=== PATIENT | male | born 1960 | race Caucasian/White ===

== ENCOUNTER 2019-10-11 10:02 | Outpatient (CLI) | payer MEDICARE, MEDICAID, SELFPAY ==
--- NOTE | ~2019-10-11 | CT_ITS ---
EXAMINATION: CT lung screening EXAM DATE: 10/11/2019 10:32 INDICATION: Personal history of nicotine dependence. TECHNIQUE: Spiral low dose CT of the chest without contrast. Axial, coronal and sagittal images were reviewed. The dose-length product (DLP) for this examination was 72.33 mGy-cm. The exposure was ta ilored according to patient size (auto mA exposure control), and iterative reconstruction (ASIR) was used as additional dose reduction technique. There is no prior study for comparison. FINDINGS: The lungs are clear. Tracheobronchial tree is patent. There is no mediastinal, hilar o r axillary lymphadenopathy. There are no pleural or pericardial effusions. There is no pneumothor ax. Heart normal in size. There is mild coronary arterial calcification, arterial sclerosis. Uppe r abdomen is unremarkable. Patient has diffuse idiopathic skeletal hyperostosis (DISH). IMPRESSION: Lung-RADS category 1, negative (<1%chance of malignancy); recommend continued LDCT screen ing in 1 year. > Reviewed, dictated and finalized at location A. IC RELATIONS SENIOR ASSOCIATE IMPRESSION: Lung-RADS category 1, negative (<1%chance of malignancy); recommend continued LDCT screening in 1 year. >
== END 2019-10-11 10:03 | disposition home or self-care (01) ==
LOC: ANHIMG 10:06
PROVIDERS: PCP Emergency Medicine; Visit Provider Emergency Medicine
DX: Z87.891 Personal history of nicotine dependence (principal)
CPT/HCPCS: G0297

== ENCOUNTER 2019-11-06 07:50 | Outpatient (CLI) | payer MEDICARE, MEDICAID, SELFPAY ==
--- NOTE | ~2019-11-06 | CT_ITS ---
EXAMINATION: CT abdomen pelvis wo/w con DATE: 11/06/2019 08:36 INDICATION: Recurrent UTI. Crohn's disease. TECHNIQUE: Computed tomography (CT) of the abdomen and pelvis was performed without and with 130 cc O mnipaque 350 intravenous contrast. The dose-length product was 627.30 mGy-cm. Automated exposure cont rol and iterative reconstruction technique were employed. COMPARISON: CT dated 01/07/2019 FINDINGS: Lung bases are unremarkable. No significant pleural or pericardial effusion. There is gynec omastia. Heart size normal. Mild atherosclerosis. No evidence for aneurysm. There is abnormal thickening of the sigmoid colon with surrounding fatty infiltration, highly suspici ous for colon adenocarcinoma. Recommend GI consultation. There is a small mesenteric nodule anteriorl y, image 145 measuring 8 mm. There are small obturator lymph nodes there are areas of small bowel wal l thickening and enhancement, compatible with patient's known Crohn's disease. No renal stones. Bladder wall is mildly thickened, although not well distended. No free air or free f luid. Multiple small mesenteric lymph nodes. There are bridging syndesmophytes of the lumbar spine wi th ankylosis of the sacroiliac joints, compatible with Crohn's disease. Moderate osteoarthritis of th e hips. IMPRESSION: 1. Abnormal thickening of the sigmoid colon with fatty infiltration, suspicious for adenocarcinoma of the colon. Recommend GI consultation. 2: Multiple focal skip areas of small bowel wall thickening with enhancement, compatible with known C rohn's disease. 3: Mild bladder wall thickening which may be due to underdistention or cystitis. Correlate with urin alysis. 4: Mild mesenteric and left obturator lymphadenopathy which may be reactive although metastatic dise ase not excluded. Dr. Worthy discussed with Dr. Dariusz Titus MD at 11/06/2019 08:59 ADHESIVE BANDAGE MAKING OPERATOR. Reviewed, dictated and finalized at location B. SIVE BANDAGE MAKING OPERATOR IMPRESSION: 1. Abnormal thickening of the sigmoid colon with fatty infiltration, suspicious for adenocarcinoma of the colon. Recommend GI consultation. 2: Multiple focal skip areas of small bowel wall thickening with enhancement, c ompatible with known Crohn's disease. 3: Mild bladder wall thickening which may be due to underdistention or cystiti s. Correlate with urinalysis. 4: Mild mesenteric and left obturator lymphadenopathy which may be reactive al though metastatic disease not excluded. Dr. Worthy discussed with Dr. Dariusz Titus MD at 11/06/2019 08:59 ADHESIVE BANDAGE MAKING OPERATOR.
[2019-11-06 08:19] LABS: Estimated Glomerular Filt Rate > 60
== END 2019-11-06 07:51 | disposition home or self-care (01) ==
PROVIDERS: PCP Emergency Medicine; Visit Provider Emergency Medicine
DX: N39.0 Urinary tract infection, site not specified (principal); R93.3 Abnormal findings on diagnostic imaging of other parts of digestive tract; N32.9 Bladder disorder, unspecified; R59.0 Localized enlarged lymph nodes
CPT/HCPCS: 36415; 74178; Q9967

== ENCOUNTER 2019-12-10 05:45 | Day surgery (SDC) | payer MEDICARE, MEDICAID, SELFPAY ==
[2019-12-06 10:12] VITALS: BMI 22.4
[2019-12-10] MEDS: LACTATED RINGERS 1,000 ML 150 ML IV CONT (07:00)
[2019-12-10 07:01] VITALS: BMI 21.2
[2019-12-10 07:02] VITALS: BP 109/69; PULSE 85; RESP 18; TEMP 36.4; O2SAT 100
--- NOTE | 2019-12-10 07:09 | WPDANESEPPF ---
Anes - Initial Pre Proc Eval Procedure: Operation Date: 12/10/19 08:00 Proposed Procedures p Colonoscopy - Jean Chavez MD Date/Time: 12/10/19 07:09 Surgeon: Jean Chavez MD Pre Op Diagnosis: Chrohn's disease, abn CT scan Patient Data Age: 59 Gender: M Height: 6 ft Weight: 71.2 kg Last Vital Signs Temp 97.6 F 12/10/19 07:02 Pulse 85 12/10/19 07:02 Resp 18 12/10/19 07:02 BP 109/69 12/10/19 07:02 Pulse Ox 100 12/10/19 07:02 Allergies Allergy/AdvReac Type Severity Reaction Status Date / Time No Known Allergies Allergy Unknown Verified 12/10/19 06:30 Home Medications Medication Instructions Recorded Confirmed Type atorvastatin 10 mg tablet 10 mg PO DAILY #30 tablet 12/03/19 12/06/19 Rx aspirin 81 mg PO DAILY 12/06/19 12/06/19 History azathioprine 100 mg PO BID 12/06/19 12/06/19 History cyclobenzaprine 10 mg PO DAILY 12/06/19 12/06/19 History famotidine 20 mg PO DAILY 12/06/19 12/06/19 History hydrocodone-acetaminophen 1 tablet PO TID PRN 12/06/19 12/06/19 History losartan 25 mg PO DAILY 12/06/19 12/06/19 History pantoprazole 40 mg PO DAILY 12/06/19 12/06/19 History ropinirole 1 mg PO HS 12/06/19 12/06/19 History Patient hx anesthesia problems: none Family hx anesthesia problems: none [facility] Past Medical History Medical History (Updated 11/19/19 @ 10:34 by Hien Kern) CAD (coronary artery disease) COPD (chronic obstructive pulmonary disease) Dyslipidemia Family History Family History (Updated 12/15/18 @ 10:08 by DOCTOR UNKNOWN) Mother Patient's mother is in good health Family history of coronary artery disease Hypertension Sibling Patient's brother is in good health Father Family history of coronary artery disease Diabetes mellitus Hypertension Other Family history of cardiovascular disease Social History Social History Smoking status: Former smoker Smoking end date: 09/05/10 Alcohol intake: current Anes - Eval Final PreProcedure Day of Procedure 04/06/20 07:09 Patient weight: normal Heart: regular rate and rhythm Lungs: clear to auscultation Airway: Mallampati scale class II Neurological: alert and oriented Last oral intake: >/= 8 hours ASA classification: III Emergent: no Anesthetic plan: proceed Anesthesia type and monitoring: general GIVS and standard monitoring Informed Consent: The patient's anesthetic plan and its attendant risks and benefits were discussed with the patient/family/POA. Questions were solicited and answers provided to the satisfaction of the patient/family/POA.
--- NOTE | 2019-12-10 08:01 | WPDGICN ---
Assessment and Plan Additional Plan This is a 59-year-old white male patient with ulcerative colitis presents today for colonoscopy. Patient initially seen 1 year ago after umbilical hernia repair. He has a past history of Crohn's disease previously followed by Dr. Ernesto George in [place]. Most recent colonoscopy was 2 years ago. At that time was described as being unremarkable. A CT scan of the abdomen performed after his hernia repair revealed a fistulous disease of the small bowel. He has been treated with medications and follow conservatively over the last year. He continues to have vague abdominal pain and cramping. Bowel movements are described as regular. He has no fevers. No bleeding. He feels better if he is moving in active during the day worse in the evening. He recently has been treated for urinary tract infection he denies any pneumaturia. Repeat CT scan of the abdomen performed 11/06/2019 we revealed abnormal appearance to the left colon suggesting possible Crohn's disease. A tumor cannot be excluded in this area. Past medical history is significant for ankylosing spondylitis diagnosed 20 years ago. He has a history of ventral hernia repair 1 year ago as described. Most recent colonoscopy 1 and half years ago in [place] was described as normal. He may have had a small polyp. Medications current we includes Imuran 100 mg p.o. daily. He has been intolerant to mesalamine. He states the Pentasa makes his skin crawl family history is noncontributory. Physical exam reveals him to be alert. Vital signs stable. HEENT exam unremarkable. Lungs are clear to auscultation and percussion. Heart is without murmur or extra sounds. Abdominal exam abdomen is scaphoid. Bowel sounds are present abdomen is soft with modest discomfort in the low abdomen. No localized tenderness appreciated. Digital external rectal exam is normal. Impression 1. Abnormal CT scan. Question of tumor in the left colon. Versus inflammatory bowel disease. 2. History of Crohn's disease by previous history and by recent CT scans. Plan is to continue Imuran consider adhering steroids. Biologic agents may be an alternative as well. 3. Abdominal pain. likely related abnormality seen on CT scan. Further recommendations will be given after colonoscopy. Plan to proceed with colonoscopy to evaluate for abdominal pain and abnormality seen on CT scan. GI Consult Note Consult date/time: 12/10/19 08:01 HPI: Inocencio Poole is a 59 year old [facility] Past Medical History Medical History (Updated 11/19/19 @ 10:34 by Hien Kern) CAD (coronary artery disease) COPD (chronic obstructive pulmonary disease) Dyslipidemia Family History Family History (Updated 12/15/18 @ 10:08 by DOCTOR UNKNOWN) Mother Patient's mother is in good health Family history of coronary artery disease Hypertension Sibling Patient's brother is in good health Father Family history of coronary artery disease Diabetes mellitus Hypertension Other Family history of cardiovascular disease Social History Social History Smoking status: Former smoker Smoking end date: 09/05/10 Alcohol intake: current Meds Home Medications and Allergies Home Medications Medication Instructions Recorded Confirmed Type atorvastatin 10 mg tablet 10 mg PO DAILY #30 tablet 12/03/19 12/10/19 Rx aspirin 81 mg PO DAILY 12/06/19 12/10/19 History azathioprine 150 mg PO DAILY 12/06/19 12/10/19 History cyclobenzaprine 10 mg PO DAILY 12/06/19 12/10/19 History famotidine 20 mg PO DAILY 12/06/19 12/10/19 History hydrocodone-acetaminophen 1 tablet PO TID PRN 12/06/19 12/10/19 History losartan 25 mg PO DAILY 12/06/19 12/10/19 History pantoprazole 40 mg PO DAILY 12/06/19 12/10/19 History ropinirole 1 mg PO HS 12/06/19 12/10/19 History Allergies Allergy/AdvReac Type Severity Reaction Status Date / Time No Known Allergies Allergy Unknown Verified 04
[2019-12-10 08:42] VITALS: BP 76/42; PULSE 77; RESP 30; O2SAT 92
[2019-12-10 08:52] VITALS: BP 91/61; PULSE 75; RESP 16; O2SAT 98
[2019-12-10 09:02] VITALS: BP 105/73; PULSE 69; RESP 20; O2SAT 100
== END 2019-12-10 09:17 | disposition home or self-care (01) ==
PROVIDERS: PCP Emergency Medicine; Visit Provider Internal Medicine Gastroenterology
PROC: 0DJD8ZZ Inspection of Lower Intestinal Tract, Via Natural or Artificial Opening Endoscopic (ICD-10-PCS; CPT 45378; principal; 2019-12-10 08:00)
DX: K50.10 Crohn's disease of large intestine without complications (principal); R10.84 Generalized abdominal pain; K57.30 Diverticulosis of large intestine without perforation or abscess without bleeding; K64.8 Other hemorrhoids; I25.10 Atherosclerotic heart disease of native coronary artery without angina pectoris; J44.9 Chronic obstructive pulmonary disease, unspecified; E78.5 Hyperlipidemia, unspecified; Z87.891 Personal history of nicotine dependence; Z79.82 Long term (current) use of aspirin
CPT/HCPCS: 45380; 88305; J2704; J7120

== ENCOUNTER 2020-02-05 07:29 | Outpatient (CLI) | payer MEDICARE, MEDICAID, SELFPAY ==
[2020-02-05 07:47] LABS: Basophils Absolute Auto 0.1 K/mm3 (0.0-0.1); Basophils Percent Auto 0.5 % (0.2-1.2); Eosinophils Absolute Auto 0.5 K/mm3 (0-0.3); Eosinophils Percent Auto 5.4 % (0-4.4); Hematocrit 42.2 % (42.0-52.0); Hemoglobin 14.1 g/dL (14.0-18.0); Immature Granulocyte Absolute 0.07 K/mm3 (0.00-0.031); Immature Granulocyte Percent A 0.7 % (0-0.5); Lymphocytes Absolute Auto 0.95 K/mm3 (0.9-3.2); Lymphocytes Percent Auto 9.8 % (18.3-44.2); Mean Corpuscular HGB Conc 33.4 g/dl (32-36); Mean Corpuscular Hemoglobin 31.7 pg (26-34); Mean Corpuscular Volume 94.8 fl (80-100); Mean Platelet Volume 8.6 fl (7.4-10.4); Monocytes Absolute Auto 1.1 K/mm3 (0.1-0.6); Monocytes Percent Auto 11.3 % (2.6-8.5); Neutrophils Percent Auto 72.3 % (45.5-73.1); Platelet Count Result 444 k/mm3 (150-375); Red Blood Count 4.45 M/mm3 (4.6-6.20); White Blood Count 9.7 K/mm3 (4.5-10.0)
== END 2020-02-05 07:30 | disposition home or self-care (01) ==
LOC: ANHLAB 07:34
PROVIDERS: PCP Emergency Medicine; Visit Provider Emergency Medicine
DX: D47.3 Essential (hemorrhagic) thrombocythemia (principal)
CPT/HCPCS: 36415; 85025

== ENCOUNTER 2020-03-20 10:10 | Outpatient (CLI) | payer MEDICARE, MEDICAID, SELFPAY | END 2020-03-20 10:11 | disposition home or self-care (01) | PROVIDERS: PCP Emergency Medicine; Visit Provider Emergency Medicine | DX: N40.0 Benign prostatic hyperplasia without lower urinary tract symptoms (principal) | CPT/HCPCS: 36415; 84153 ==

== ENCOUNTER 2020-05-19 07:37 | Outpatient (CLI) | payer MEDICARE, MEDICAID, SELFPAY ==
--- NOTE | ~2020-05-19 | CT_ITS ---
EXAMINATION: CT abdomen pelvis w con DATE: 05/19/2020 08:13 INDICATION: Lymphadenopathy TECHNIQUE: Computed tomography (CT) of the abdomen and pelvis was performed with 100 mL Omnipaque-350 intravenous contrast. Automated exposure control and iterative reconstruction technique were employe d. The dose-length product was 458.58 mGy-cm. COMPARISON: 11/06/2019 FINDINGS: Mild dependent atelectasis in the bilateral lower lobes. Heart size is normal. Atherosclerotic carrillo ry artery calcified calcification. No pericardial or pleural effusion. Liver, gallbladder, spleen and bilateral adrenal glands are normal. There are few tiny parenchymal calcification at the otherwise n ormal-appearing pancreas, likely sequela of chronic pancreatitis. There are tiny subcentimeter low-at tenuation bilateral renal cysts which are too small to definitively characterize. Again seen is edema tous wall thickening of multiple loops of bowel with surrounding inflammatory stranding including at the tip of the cecum, along the sigmoid colon and several loops of predominantly distal small bowel i ncluding the terminal ileum consistent with flare of known Crohn's disease. There is stranding surrou nding tracks of enhancing tissue extending between the sigmoid colon and a couple of the loops of sma ll bowel consistent with enteroenteric and enterocolic fistula formation. Again seen is dilation of a loop of small bowel in the anterior abdomen measuring up to 6.7 cm in maximal diameter which extends to a transition point at a region of wall thickening along the anterior abdominal wall which could r epresent an early or partial small bowel obstruction due to either stricture or less likely adhesion. There are few diverticula along the sigmoid colon. Normal appendix. There is wall thickening along t he left side of the dome of the bladder with suggestion of colovesical fistula formation. Trace amoun t of likely reactive free fluid in the pelvis. No free intraperitoneal gas or organized abscess. No p athologically enlarged abdominal or pelvic lymphadenopathy. Syndesmophytes throughout the spine along with ankylosis across the bilateral sacroiliac joints, multiple bilateral facet joints and multiple spinous processes consistent with likely Crohn's disease associated ankylosing spondylitis. Moderate bilateral hip osteoarthritis. IMPRESSION: 1. Wall thickening of multiple segments of small bowel and colon consistent with known Crohn's diseas e. Differential for the region of wall thickening at the sigmoid colon however would also include mal ignancy and if not previously evaluated would recommend follow-up colonoscopy when clinically improve d. 2. Early/partial small bowel obstruction with wall thickening the small bowel at and distal to the tr ansition point suggesting either stricture or adhesion related to prior disease. 3. 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 Correlate with urinalysis. Reviewed, dictated and finalized at location A. IMPRESSION: 1. Wall thickening of multiple segments of small bowel and colon consistent wit h known Crohn's disease. Differential for the region of wall thickening at the sigmoid colon however would also include malignancy and if not previously evalu ated would recommend follow-up colonoscopy when clinically improved. 2. Early/partial small bowel obstruction with wall thickening the small bowel a t and distal to the transition point suggesting either stricture or adhesion re lated to prior disease. 3. 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 Correlate with urinalysis.
[2020-05-19 08:05] LABS: Estimated Glomerular Filt Rate > 60
== END 2020-05-19 07:38 | disposition home or self-care (01) ==
PROVIDERS: PCP Emergency Medicine; Visit Provider Emergency Medicine
DX: R59.1 Generalized enlarged lymph nodes (principal); K50.10 Crohn's disease of large intestine without complications; K56.600 Partial intestinal obstruction, unspecified as to cause; K63.2 Fistula of intestine; N32.1 Vesicointestinal fistula; N33 Bladder disorders in diseases classified elsewhere
CPT/HCPCS: 74177; Q9967

== ENCOUNTER 2020-09-26 09:48 | Outpatient (CLI) | payer MEDICARE, MEDICAID, SELFPAY ==
[2020-09-26 10:24] LABS: Alanine Aminotransferase 14 U/L (4-50); Albumin Level 3.7 g/dL (3.5-5.1); Alkaline Phosphatase 51 U/L (38-126); Anion Gap 2 mmol/L (8-16); Aspartate Amino Transferase 28 U/L (17-59); Bilirubin,Total 0.7 mg/dL (0.2-1.3); Blood Urea Nitrogen 12 mg/dL (9-20); Calcium 8.7 mg/dL (8.4-10.2); Carbon Dioxide 32 mmol/L (22-30); Chloride 101 mmol/L (98-107); Cholesterol 117 mg/dL (0-200); Estimated Glomerular Filt Rate > 60; Glucose 100 mg/dL (75-110); HDL Direct 43 mg/dL; Potassium 4.1 mmol/L (3.4-5.0); Sodium 135 mmol/L (137-145); Triglycerides 100 mg/dL (<150)
[2020-09-26 10:35] LABS: LDL Cholesterol Direct 37 mg/dL
== END 2020-09-26 09:49 | disposition home or self-care (01) ==
PROVIDERS: PCP Emergency Medicine; Visit Provider Internal Medicine Cardiovascular Disease
DX: E78.5 Hyperlipidemia, unspecified (principal)
CPT/HCPCS: 36415; 80053; 80061

== ENCOUNTER 2020-10-03 09:01 | Outpatient (CLI) | payer MEDICARE, MEDICAID, SELFPAY ==
--- NOTE | 2020-10-03 09:05 | EST_ITS ---
Patient Info Name: Inocencio Poole Age: 60 years : 1960 Gender: Male Ht: 72 in Wt: 155 lbs BSA: 1.88 m2 Technical Quality: Fair Exam Date: 10/03/2020 9:44 AM Exam Location: [facility] Patient Status: Outpatient Admit Date: 10/03/2020 Staff Ordering Physician: Ammon Mesa DO Supervisor Anodizing: Ashia Mendes RDCS Attending Provider: Ammon Mesa DO Referring Physician: Moshe ALEXANDRA; Exercise Technologist: Klarissa Diaz RDCS Exercise Physician: Ammon Mesa DO Exam Type: CA stress echo Study Info Indications I10 - Essential (primary) hypertension Treadmill exercise stress echocardiogram is performed. Summary 1. 1. Negative Conrado exercise stress test for ischemic ST changes by ECG criteria. 2. 2. Good functional capacity, achieving 10 METs of workload. 3. 3. Appropriate HR response to exercise. 4. 4. Appropriate HR recovery at 1 minute post exercise. 5. 5. Negative stress echocardiogram for ischemia by wall motion analysis. 6. 6. Patient informed of the above results. Stress Echo Findings Left Ventricle Appropriate increase in LV endocardial thickening with systole. Appropriate augmentation of contractility with systole. No wall motion abnormality. Left Ventricle Preserved LV systolic function, no wall motion abnormality. Protocol: Conrado Stress ECG Details Stage: REST Duration (min): 2 min : 11 sec Speed (mph): 0.0 Grade (%): 0 HR (bpm): 83 SBP (mmHg): 131 DBP (mmHg): 77 METS: --- Stage: REST Duration (min): 36 min : 16 sec Speed (mph): 0.0 Grade (%): 0 HR (bpm): 80 SBP (mmHg): 131 DBP (mmHg): 77 METS: --- Stage: STAGE 1 Duration (min): 1 min : 0 sec Speed (mph): 1.7 Grade (%): 10 HR (bpm): 101 SBP (mmHg): 131 DBP (mmHg): 77 METS: --- Stage: STAGE 1 Duration (min): 2 min : 0 sec Speed (mph): 1.7 Grade (%): 10 HR (bpm): 100 SBP (mmHg): 131 DBP (mmHg): 77 METS: --- Stage: STAGE 1 Duration (min): 3 min : 0 sec Speed (mph): 1.7 Grade (%): 10 HR (bpm): 104 SBP (mmHg): 118 DBP (mmHg): 61 METS: --- Stage: STAGE 2 Duration (min): 1 min : 0 sec Speed (mph): 2.5 Grade (%): 12 HR (bpm): 110 SBP (mmHg): 118 DBP (mmHg): 61 METS: --- Stage: STAGE 2 Duration (min): 2 min : 0 sec Speed (mph): 2.5 Grade (%): 12 HR (bpm): 114 SBP (mmHg): 128 DBP (mmHg): 71 METS: --- Stage: STAGE 2 Duration (min): 3 min : 0 sec Speed (mph): 2.5 Grade (%): 12 HR (bpm): 117 SBP (mmHg): 128 DBP (mmHg): 71 METS: --- Stage: STAGE 3 Duration (min): 1 min : 0 sec Speed (mph): 3.4 Grade (%): 14 HR (bpm): 127 SBP (mmHg): 139 DBP (mmHg): 64 METS: --- Stage: STAGE 3 Duration (min): 2 min : 0 sec Speed (mph): 3.4 Grade (%): 14 HR (bpm): 132 SBP (mmHg): 139 DBP (mmHg): 64 METS: --- Stage: STAGE 3 Duration (min): 2 min : 24 sec Speed (
== END 2020-10-03 09:02 | disposition home or self-care (01) ==
PROVIDERS: PCP Emergency Medicine; Visit Provider Internal Medicine Cardiovascular Disease
DX: E78.5 Hyperlipidemia, unspecified (principal); I10 Essential (primary) hypertension
CPT/HCPCS: 93351

== ENCOUNTER 2020-11-10 08:26 | Outpatient (CLI) | payer MEDICARE, MEDICAID, SELFPAY ==
--- NOTE | ~2020-11-10 | CT_ITS ---
EXAMINATION: CT lung screening EXAM DATE: 11/10/2020 09:00 INDICATION: TECHNIQUE: Spiral low dose CT of the chest without contrast. Axial, coronal and sagittal images were reviewed. The dose-length product (DLP) for this examination was 65.81 mGy-cm. The exposure was ta ilored according to patient size (auto mA exposure control), and iterative reconstruction (ASIR) was used as additional dose reduction technique. Comparison is made to prior examination from 10/11/2019. FINDINGS: There are several punctate calcified and noncalcified nodules up to 3 mm in size, mostly p erihilar location. There is mild emphysema and moderate hyperinflation. Tracheobronchial tree is pat ent. There is no mediastinal, hilar or axillary lymphadenopathy. There are no pleural or pericard ial effusions. There is no pneumothorax. Heart normal in size. There is mild coronary arterial calcification, arterial sclerosis. Upper abdomen is unremarkable. Appearance to spine, with diffuse longitudinal ligament and also posterior spinous process ligament at thoracic lumbar spine could ind icate ankylosing spondylitis, or if not diffuse idiopathic skeletal hyperostosis. IMPRESSION: Lung-RADS category 2, benign appearance or behavior (<1% chance of malignancy); recommend continued LDCT screening in 1 year. Reviewed, dictated and finalized at location B. VERY TABLE OPERATOR
== END 2020-11-10 08:27 | disposition home or self-care (01) ==
PROVIDERS: PCP Emergency Medicine; Visit Provider Emergency Medicine
DX: Z12.2 Encounter for screening for malignant neoplasm of respiratory organs (principal); Z87.891 Personal history of nicotine dependence
CPT/HCPCS: 71271

== ENCOUNTER 2022-01-01 07:54 | Outpatient (CLI) | payer MEDICARE, MEDICAID, SELFPAY ==
--- NOTE | ~2022-01-01 | CT_ITS ---
EXAMINATION: CT lung screening DATE: 01/01/2022 08:08 INDICATION: Personal history of nicotine dependence, prior smoker with 136 pack year history TECHNIQUE: Computed tomography (CT) of the chest was performed without intravenous contrast. The dose -length product (DLP) was 76.59 mGy-cm. Automated exposure control and iterative reconstruction techn [employer] were employed. COMPARISON: 11/10/2020 FINDINGS: There is mild emphysema. Again seen are multiple stable 1 to 2 mm nodule scattered througho ut the lungs. No suspicious pulmonary nodules are identified. The lungs are free of acute opacities. There is no pleural effusion or pneumothorax. No pathologically enlarged thoracic lymph nodes are simona ntified. The heart size is normal. Asymmetric gynecomastia is noted on the left. There is calcified c oronary artery atherosclerosis. There are bridging osteophytes at multiple levels in the spine, consi stent with diffuse idiopathic skeletal hyperostosis (DISH). IMPRESSION: 1. Lung-RADS category 2: Benign appearance or behavior. Continue annual screening with noncontrast lo w-dose chest CT in 12 months. Reviewed, dictated and finalized at location B. IMPRESSION: 1. Lung-RADS category 2: Benign appearance or behavior. Continue annual screeni ng with noncontrast low-dose chest CT in 12 months.
== END 2022-01-01 07:55 | disposition home or self-care (01) ==
PROVIDERS: PCP Emergency Medicine; Visit Provider Emergency Medicine
DX: Z12.2 Encounter for screening for malignant neoplasm of respiratory organs (principal); Z87.891 Personal history of nicotine dependence
CPT/HCPCS: 71271

== ENCOUNTER 2022-06-16 08:17 | Outpatient (CLI) | payer MEDICARE, MEDICAID, SELFPAY ==
[2022-06-16 08:39] LABS: Cholesterol 168 mg/dL (0-200); HDL Direct 48 mg/dL; Triglycerides 181 mg/dL (<150)
[2022-06-16 08:50] LABS: LDL Cholesterol Direct 71 mg/dL
== END 2022-06-16 08:18 | disposition home or self-care (01) ==
PROVIDERS: PCP Emergency Medicine; Visit Provider Internal Medicine Cardiovascular Disease
DX: E78.5 Hyperlipidemia, unspecified (principal)
CPT/HCPCS: 36415; 80061

== ENCOUNTER 2022-07-04 14:38 | Emergency (ER) | payer MEDICARE, MEDICAID, SELFPAY ==
--- NOTE | ~2022-07-04 | XR_ITS ---
EXAM: XR wrist LT min 3V DATE: 07/04/2022 14:59 HISTORY: fall, ULNAR PAIN, . COMPARISON: None available. FINDINGS: Normal mineralization. Osseous fragment at the dorsal wrist as can be seen with triquetral fractures. No lytic or blastic lesion. Degenerative change at the triscaphe joint, trapeziometacarpa l joint,, first MCP joint and lunate. Mild ulnar positive variance. No erosion or periosteal change. Soft tissues within normal limits. IMPRESSION: Triquetral fracture. Reviewed, dictated and finalized at location K. IMPRESSION: Triquetral fracture.
--- NOTE | ~2022-07-04 | XR_ITS ---
EXAM: XR shoulder LT min 2V DATE: 07/04/2022 14:59 HISTORY: fall, ANTERIOR LATERAL CLAVICLE PAIN, LIMITED ROM . COMPARISON: None available. FINDINGS: Normal mineralization. Nondisplaced oblique fracture of the distal left clavicle. No lytic or blastic lesion. Mild degenerative changes at the acromioclavicular and glenohumeral joints. No er osion or periosteal change. Soft tissues within normal limits. IMPRESSION: Nondisplaced distal left clavicular fracture. Reviewed, dictated and finalized at location [facility].
[2022-07-04 14:42] VITALS: BP 139/86; PULSE 101; RESP 16; TEMP 36.4; O2SAT 100
--- NOTE | 2022-07-04 15:33 | ED.UPPEXIN ---
HPI - Extremity Injury (Upper) General Chief Complaint: Extremity Injury, Upper Stated Complaint: left shoulder injury Time Seen by Provider: 07/04/22 14:41 History of Present Illness HPI narrative: 62-year-old male history of chronic back pain, hypertension, hyperlipidemia, restless leg syndrome presents to the emergency room for multiple injuries sustained in a fall that occurred 3 days ago. Patient states that he tripped and fell over his dog landing on a outstretched left arm. Patient reports experiencing pain to his left shoulder and his left wrist. States that he noticed significant amount of bruising to his left shoulder and collarbone area and experienced limited range of motion. Related Data Home Medications Medication Instructions Recorded Confirmed aspirin 81 mg tablet,delayed 81 mg PO DAILY 12/06/19 04/27/22 release azathioprine 50 mg tablet 150 mg PO DAILY 12/06/19 04/27/22 cyclobenzaprine 10 mg tablet 10 mg PO DAILY 12/06/19 04/27/22 hydrocodone 7.5 mg-acetaminophen 1 tablet PO TID PRN Pain 12/06/19 04/27/22 325 mg tablet losartan 25 mg tablet 25 mg PO DAILY 12/06/19 04/27/22 ropinirole 1 mg tablet 1 mg PO HS 12/06/19 04/27/22 adalimumab 40 mg/0.8 mL See Rx Instructions subcut .COMPLEX 09/25/21 04/27/22 subcutaneous syringe kit (Humira) mecobalamin (vitamin B12) 10,000 mcg subcut .Every 4 Weeks 09/25/21 04/27/22 mcg solution for injection Allergies Allergy/AdvReac Type Severity Reaction Status Date / Time No Known Allergies Allergy Unknown Verified 07/04/22 14:45 Review of Systems Review of Systems: CONSTITUTIONAL: Denies fever, chills, or sweats. EYES: Denies visual changes, redness, or discharge. ENT: Denies rhinorrhea, congestion, sore throat, or otalgia. CARDIOVASCULAR: Denies chest pain, palpitations, or edema. RESPIRATORY: Denies cough or dyspnea. GASTROINTESTINAL: Denies abdominal pain, nausea, vomiting, or diarrhea. GENITOURINARY: Denies dysuria or hematuria. SKIN: Denies rash or itching. MUSCULOSKELETAL: Reports left shoulder and left wrist pain NEUROLOGIC: Denies headache, numbness, dizziness, or weakness. PSYCHIATRIC: Denies anxiety or depression. [facility] Past Medical History Medical History CAD (coronary artery disease) COPD (chronic obstructive pulmonary disease) Dyslipidemia Family History Family History Mother Patient's mother is in good health Family history of coronary artery disease Hypertension Sibling Patient's brother is in good health Father Family history of coronary artery disease Diabetes mellitus Hypertension Other Family history of cardiovascular disease Social History Social History Smoking status: Former smoker Smoking end date: 09/05/10 Alcohol intake: current Exam Narrative: GENERAL: Well-appearing, well-nourished, no physical limitations, and in no acute distress. HEAD: Normocephalic, atraumatic. EYES: Conjunctivae normal, PERRLA and EOMI. CHEST: Clear to auscultation. No respiratory distress. No wheezes rales or rhonchi. HEART: Regular rate and rhythm. No murmur heard. Normal peripheral pulses. EXTREMITIES: Left shoulder: In the distal clavicular area with soft tissue swelling, bony abnormality, ecchymosis and very stages of healing. Limited range of motion of the shoulder joint. left wrist: Tenderness to the distal ulna and the radiocarpal joint. Limited range of motion to the wrist with no obvious bony abnormality, soft tissue swelling or ecchymosis. Neurovascular is intact distally SKIN: Warm, dry, no rash. No noted wounds NEURO: No focal deficits. Alert and oriented x3. CN's II-XI intact bilaterally, normal gait PSYCH: Cooperative. Normal mood and affect. Course Vital Signs Vital signs: Vital Signs Temperature 36.4 C L 07/04/22 14:42 Pulse Rate 101 H
[2022-07-04 17:12] VITALS: BP 140/92; PULSE 86; RESP 15; O2SAT 98
== END 2022-07-04 16:40 | disposition home or self-care (01) ==
PROVIDERS: Emergency Provider Nurse Practitioner Family; PCP Emergency Medicine
DX: S42.035A Nondisplaced fracture of lateral end of left clavicle, initial encounter for closed fracture (principal); S62.112A Displaced fracture of triquetrum [cuneiform] bone, left wrist, initial encounter for closed fracture; I25.10 Atherosclerotic heart disease of native coronary artery without angina pectoris; J44.9 Chronic obstructive pulmonary disease, unspecified; I10 Essential (primary) hypertension; E78.5 Hyperlipidemia, unspecified; G25.81 Restless legs syndrome; M54.9 Dorsalgia, unspecified; G89.29 Other chronic pain; Z87.891 Personal history of nicotine dependence; Z79.82 Long term (current) use of aspirin; W01.0XXA Fall on same level from slipping, tripping and stumbling without subsequent striking against object, initial encounter
CPT/HCPCS: 29125; 73030; 73110; 99284; A4565

== ENCOUNTER 2023-03-03 07:04 | Outpatient (CLI) | payer MEDICARE, MEDICAID, SELFPAY ==
--- NOTE | ~2023-03-03 | CT_ITS ---
CT Scan of the Chest without Contrast: Clinical Indication: Lung cancer screening, personal history of nicotine dependence Technique: Contiguous sections were acquired throughout the chest without intravenous contrast. Dose reduction technique was used on this scan by utilizing automated exposure control and iterative recon struction technique. The dose-length product (DLP) was 75.74 mGy-cm. COMPARISON: 01/01/2022, 11/10/2020 Findings: There is no evidence of any significant mediastinal, hilar or axillary lymphadenopathy.. Mild coronar y artery calcifications are present. There is no evidence of pleural or pericardial effusion. Calcified left upper lobe granuloma noted. Lungs are otherwise clear. Images through the upper abdomen reveal no abnormalities. Impression: Lung RADS 2: Benign appearance. 12 month follow-up screening CT advised. Reviewed, dictated and finalized at [facility]. Impression: Lung RADS 2: Benign appearance. 12 month follow-up screening CT advised.
== END 2023-03-03 07:05 | disposition home or self-care (01) ==
PROVIDERS: PCP Emergency Medicine; Visit Provider Emergency Medicine
DX: Z12.2 Encounter for screening for malignant neoplasm of respiratory organs (principal); Z87.891 Personal history of nicotine dependence
CPT/HCPCS: 71271

== ENCOUNTER 2023-03-15 07:54 | Outpatient (CLI) | payer MEDICARE, MEDICAID, SELFPAY ==
[2023-03-15 08:47] LABS: Basophils Absolute Auto 0.1 K/mm3 (0.0-0.1); Basophils Percent Auto 0.9 % (0.2-1.2); Eosinophils Absolute Auto 0.4 K/mm3 (0-0.3); Eosinophils Percent Auto 8.1 % (0-4.4); Hematocrit 43.8 % (42.0-52.0); Hemoglobin 15.1 g/dL (14.0-18.0); Immature Granulocyte Absolute 0.04 K/mm3 (0.00-0.031); Immature Granulocyte Percent A 0.7 % (0-0.5); Lymphocytes Absolute Auto 0.83 K/mm3 (0.9-3.2); Lymphocytes Percent Auto 15.2 % (18.3-44.2); Mean Corpuscular HGB Conc 34.5 g/dl (32-36); Mean Corpuscular Hemoglobin 31.9 pg (26-34); Mean Corpuscular Volume 92.6 fl (80-100); Mean Platelet Volume 9.6 fl (7.4-10.4); Monocytes Absolute Auto 0.9 K/mm3 (0.1-0.6); Monocytes Percent Auto 15.8 % (2.6-8.5); Neutrophils Absolute Auto 3.2 K/mm3 (1.3-6.7); Neutrophils Percent Auto 59.3 % (45.5-73.1); Platelet Count Result 294 k/mm3 (150-375); Red Blood Count 4.73 M/mm3 (4.6-6.20); Red Cell Distribution Width 13.3 % (11.5-14.5); White Blood Count 5.5 K/mm3 (4.5-10.0)
[2023-03-15 09:01] LABS: Alanine Aminotransferase 24 U/L (6-50); Albumin Level 4.2 g/dL (3.5-5.1); Alkaline Phosphatase 69 U/L (38-126); Anion Gap 4 mmol/L (8-16); Aspartate Amino Transferase 28 U/L (17-59); Bilirubin,Total 0.9 mg/dL (0.2-1.3); Blood Urea Nitrogen 22 mg/dL (9-20); Calcium 8.6 mg/dL (8.4-10.2); Carbon Dioxide 28 mmol/L (22-30); Chloride 104 mmol/L (98-107); Cholesterol 205 mg/dL (0-200); Estimated Glomerular Filt Rate > 60; Glucose 119 mg/dL (65-110); HDL Direct 43 mg/dL; Magnesium 1.7 mg/dL (1.6-2.3); Phosphorus 2.7 mg/dL (2.5-4.5); Potassium 3.8 mmol/L (3.4-5.0); Sodium 136 mmol/L (137-145); Triglycerides 198 mg/dL (<150)
[2023-03-15 09:05] LABS: Appearance Urine Clear (Clear); Bacteria Urine None Seen /hpf; Bilirubin Urine Negative (Negative); Blood Urine Trace (Negative); Color Urine Dark Yellow (Yellow); Glucose Urine UA Negative (Negative); Ketones Urine Negative (Negative); Leukocyte Esterase Ur Negative LEU/UL (Negative); Nitrate Urine Negative (Negative); Non Pathogenic Casts 0-2; Protein Urine 2+ mg/dL (Negative); Specific Grav Ur 1.028 (1.001-1.035); Squamous Epithelial Cell Urine None seen /hpf (Few); WBC Urine 0-5 /hpf; pH Urine 5.5 (5.0-9.0)
[2023-03-15 09:12] LABS: LDL Cholesterol Direct 93 mg/dL
[2023-03-15 09:14] LABS: Iron 219 ug/dL (49-181)
[2023-03-15 09:17] LABS: Barbiturate Screen Urine Negative (Negative)
[2023-03-15 09:22] LABS: Add Urine Microscopic? YES
[2023-03-15 09:23] LABS: Benzodiazepines Screen Urine Negative (Negative)
[2023-03-15 09:24] LABS: Amphetamine Screen Urine Negative (Negative); Cannabinoid Screen Urine Negative (Negative); Cocaine Screen Urine Negative (Negative); Methadone Screen Urine Negative (Negative); Opiate Screen Urine Positive (Negative); Phencyclidine Screen Urine Negative (Negative)
[2023-03-15 09:31] LABS: Percent Iron Saturation 56 % (20-50); Prostate Specific Antigen 0.8 ng/mL (< OR = 4.0)
[2023-03-15 10:07] LABS: Folic Acid 6.5 ng/mL (2.76->20)
[2023-03-15 10:55] LABS: Free T4 Free Thyroxine Reflex 1.24 ng/dL (0.78-2.19)
== END 2023-03-15 07:55 | disposition home or self-care (01) ==
LOC: ANHLAB 08:01
PROVIDERS: PCP Emergency Medicine; Visit Provider Emergency Medicine
DX: G25.81 Restless legs syndrome (principal); I10 Essential (primary) hypertension; I25.10 Atherosclerotic heart disease of native coronary artery without angina pectoris; K50.10 Crohn's disease of large intestine without complications; M45.0 Ankylosing spondylitis of multiple sites in spine; N40.0 Benign prostatic hyperplasia without lower urinary tract symptoms; R80.9 Proteinuria, unspecified; Z79.899 Other long term (current) drug therapy
CPT/HCPCS: 36415; 80061; 80069; 80076; 80307; 81001; 82607; 82728; 82746; 83540; 83550; 83735; 84153; 84439; 84443; 84480; 85025

== ENCOUNTER 2023-04-26 10:21 | Outpatient (CLI) | payer MEDICARE, MEDICAID, SELFPAY ==
[2023-04-26 11:16] LABS: Hemoglobin A1C 5.1 % (<5.7)
[2023-04-26 11:32] LABS: Appearance Urine Clear (Clear); Bacteria Urine None Seen /hpf; Bilirubin Urine Negative (Negative); Blood Urine Trace (Negative); Color Urine Yellow (Yellow); Glucose Urine UA Negative (Negative); Ketones Urine Negative (Negative); Leukocyte Esterase Ur Negative LEU/UL (Negative); Nitrate Urine Negative (Negative); Non Pathogenic Casts 0-2; Protein Urine 1+ mg/dL (Negative); Specific Grav Ur 1.027 (1.001-1.035); Squamous Epithelial Cell Urine None seen /hpf (Few); WBC Urine 0-5 /hpf; pH Urine 5.5 (5.0-9.0)
[2023-04-26 11:33] LABS: Add Urine Microscopic? YES
[2023-04-26 12:41] LABS: Free T4 Free Thyroxine Reflex 1.19 ng/dL (0.78-2.19)
[2023-04-26 14:25] LABS: Total Triiodothyronine (T3) 1.43 NG/ML (0.97-1.69)
[2023-04-29 14:28] LABS: Thyroid Stimulating Immunoglob <89 % baseline (<140)
[2023-05-01 04:46] LABS: Thyroglobulin 36.4 ng/mL (2.8-40.9); Thyroglobulin Antibodies <1 IU/mL (<=1); Thyroid Peroxidase Antibodies 1 IU/mL (<9)
== END 2023-04-26 10:22 | disposition home or self-care (01) ==
PROVIDERS: PCP Emergency Medicine; Visit Provider Emergency Medicine
DX: E03.9 Hypothyroidism, unspecified (principal); E78.2 Mixed hyperlipidemia; E83.10 Disorder of iron metabolism, unspecified; M45.0 Ankylosing spondylitis of multiple sites in spine; R73.9 Hyperglycemia, unspecified; R80.9 Proteinuria, unspecified
CPT/HCPCS: 36415; 81001; 83036; 84432; 84439; 84443; 84445; 84480; 86376; 86800

== ENCOUNTER 2023-06-07 08:00 | Outpatient (CLI) | payer MEDICARE, MEDICAID, SELFPAY ==
--- NOTE | ~2023-06-07 | NM_ITS ---
EXAMINATION: NM rima stress w perfusion DATE: 06/07/2023 10:27 INDICATION: Chest pain TECHNIQUE: Rest images were obtained following intravenous administration of 8.734 mCi Tc99m tetrofos min (Myoview). The patient was infused intravenously with Lexiscan (Regadenoson). Then, 30.4 mCi Tc99 m tetrofosmin (Myoview) was administered intravenously, and stress images were obtained. Data was rec onstructed into short axis and horizontal and vertical long axis SPECT images. Gated SPECT images wer e also obtained. COMPARISON: None. FINDINGS: There is no definite reversible or fixed perfusion abnormality to suggest ischemia or infar ction. There is normal left ventricular chamber size and wall motion with low normal ejection fracti on. Left ventricular ejection fraction measures 49%. IMPRESSION: 1. Normal myocardial perfusion at rest and during stress. 2. Left ventricular ejection fraction measuring 49%. Reviewed, dictated and finalized at location [facility].
--- NOTE | 2023-06-07 08:42 | EST_ITS ---
Patient Info Name: Inocencio Poole Age: 62 years : 1960 Gender: Male Ht: 71 in Wt: 184 lbs BSA: 2.05 m2 HR: 70 bpm BP: 153 / 98 mmHg Heart Rhythm: Sinus Rhythm Exam Date: 06/07/2023 9:09 AM Exam Location: [facility] Patient Status: Outpatient Admit Date: 06/07/2023 Staff Ordering Physician: Ammon Mesa DO Attending Provider: Ammon Mesa DO Exercise Technologist: Anjelica Bennett CT Exercise Physician: Ammon Mesa DO Exam Type: CA stress rima w NM Study Info Indications R07.89 - Other chest pain A regadenoson stress test was performed. Summary 1. 1. Negative lexiscan stress test for ischemic ST changes by ECG criteria. 2. 2. Baseline hypertension. 3. 3. Nuclear scan to follow and will be reported separately. Please correlate with it. 4. 4. Patient informed of the above results. Protocol: Lexiscan Stress ECG Details Stage: REST Duration (min): 8 min : 0 sec HR (bpm): 71 SBP (mmHg): 153 DBP (mmHg): 98 Stage: STAGE 1 Duration (min): 0 min : 59 sec HR (bpm): 81 SBP (mmHg): 153 DBP (mmHg): 98 Stage: RECOVERY Duration (min): 1 min : 0 sec HR (bpm): 90 SBP (mmHg): 153 DBP (mmHg): 98 Stage: RECOVERY Duration (min): 2 min : 0 sec HR (bpm): 87 SBP (mmHg): 146 DBP (mmHg): 86 Stage: RECOVERY Duration (min): 3 min : 0 sec HR (bpm): 89 SBP (mmHg): 146 DBP (mmHg): 80 Stage: RECOVERY Duration (min): 4 min : 0 sec HR (bpm): 85 SBP (mmHg): 148 DBP (mmHg): 80 Stage: RECOVERY Duration (min): 4 min : 12 sec HR (bpm): 84 SBP (mmHg): 148 DBP (mmHg): 80 Rest HR: 71 bpm Peak HR: 91 bpm Rest Sys BP: 153 mmHg Peak Sys BP: 153 mmHg Max Pred HR: 157 bpm % Max Pred HR: 58 % Target HR: 133 bpm Max RPP: 13,923 bpm*mmHg Termination Reason: Completed protocol Cardiac Symptoms: Shortness of breath Total Time: 1 min : 0 sec Rest Cohen BP: 98 mmHg Peak Cohen BP: 98 mmHg Total Dose: 0.4 mg Resting ECG Sinus rhythm. Stress ECG No ST changes. Arrhythmias None. Report Signatures
== END 2023-06-07 08:01 | disposition home or self-care (01) ==
PROVIDERS: PCP Emergency Medicine; Visit Provider Internal Medicine Cardiovascular Disease
DX: R07.9 Chest pain, unspecified (principal)
CPT/HCPCS: 78452; 93017; A9502

== ENCOUNTER 2023-06-16 08:07 | Outpatient (CLI) | payer MEDICARE, MEDICAID, SELFPAY ==
--- NOTE | ~2023-06-16 | CT_ITS ---
CT of the Abdomen and Pelvis: Indication: Microscopic hematuria Technique: 2.5 mm axial scans were obtained through the abdomen and pelvis prior to and following in travenous administration of 130 cc of Omnipaque 350. Dose reduction technique was used on this scan b y utilizing automated exposure control and iterative reconstruction technique. The dose-length produc t (DLP) was 1104.43 mGy-cm. COMPARISON: 05/19/2020 Findings: Scans through the lung bases are unremarkable. The liver, spleen, pancreas, gallbladder, adrenals and kidneys are within normal limits. There are at herosclerotic calcifications of the aorta. No lymphadenopathy. No bowel obstruction or bowel wall thickening. Rectosigmoid anastomosis noted. There is an additional no stenosis at the ileocolic junction region.. Images through the pelvis were performed. Urinary bladder unremarkable. Prostate gland and seminal ve sicles are unremarkable. No ascites. 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 Impression: No etiology for hematuria identified. No acute abnormality evident. Ankles and spondylitis. Reviewed, dictated and finalized at [facility]. Impression: No etiology for hematuria identified. No acute abnormality evident. Ankles and spondylitis.
[2023-06-16 08:24] LABS: Estimated Glomerular Filt Rate > 60
== END 2023-06-16 08:08 | disposition home or self-care (01) ==
PROVIDERS: PCP Emergency Medicine; Visit Provider Emergency Medicine
DX: R31.21 Asymptomatic microscopic hematuria (principal)
CPT/HCPCS: 74178; Q9967

== ENCOUNTER 2023-06-30 08:18 | Outpatient (CLI) | payer MEDICARE, MEDICAID, SELFPAY ==
[2023-06-30 09:13] LABS: Appearance Urine Clear (Clear); Bacteria Urine None Seen /hpf; Bilirubin Urine Negative (Negative); Color Urine Yellow (Yellow); Glucose Urine UA Negative (Negative); Ketones Urine Negative (Negative); Leukocyte Esterase Ur Negative LEU/UL (NEGATIVE); Nitrate Urine Negative (Negative); Non Pathogenic Casts 0-2; Protein Urine 2+ mg/dL (Negative); RBC Urine 0-2 /hpf (0-2); Specific Grav Ur 1.019 (1.001-1.035); Squamous Epithelial Cell Urine None seen /hpf (Few); WBC Urine 0-5 /hpf (0-3); pH Urine 5.5 (5.0-9.0)
[2023-06-30 09:17] LABS: Add Urine Microscopic? YES
== END 2023-06-30 08:19 | disposition home or self-care (01) ==
LOC: ANHLAB 08:21
PROVIDERS: PCP Emergency Medicine; Visit Provider Emergency Medicine
DX: R31.21 Asymptomatic microscopic hematuria (principal)
CPT/HCPCS: 81001; 88108

== ENCOUNTER 2024-04-30 15:56 | Outpatient (CLI) | payer MEDICARE, MEDICAID, SELFPAY ==
--- NOTE | ~2024-04-30 | CT_ITS ---
EXAMINATION:CT lung screening DATE: 04/30/2024 16:32 INDICATION: Personal history of nicotine dependence. Smoker who quit 13 years ago with 137 pack-year history. TECHNIQUE: Computed tomography (CT) of the chest was performed without intravenous contrast. Automate d exposure control and iterative reconstruction technique were employed. The dose-length product (DLP ) was 89.29 mGy-cm. COMPARISON: Chest CT 03/03/2023 FINDINGS: A calcified left lung nodule and calcified left hilar and mediastinal lymph nodes are consi stent with old granulomatous disease. No pleural effusion. The heart size is normal. No pericardial e ffusion. There are coronary artery calcifications. There are bridging endplate osteophytes at multipl e levels in the spine, consistent with diffuse idiopathic skeletal hyperostosis (DISH). IMPRESSION: 1. Lung-RADS category 1: Negative. Continue annual screening with noncontrast low-dose chest CT in 12 months. Reviewed, dictated and finalized at location [facility]. IMPRESSION: 1. Lung-RADS category 1: Negative. Continue annual screening with noncontrast l ow-dose chest CT in 12 months.
== END 2024-04-30 15:57 | disposition home or self-care (01) ==
LOC: ANHIMG 15:57
PROVIDERS: PCP Emergency Medicine; Visit Provider Emergency Medicine
DX: Z12.2 Encounter for screening for malignant neoplasm of respiratory organs (principal); Z87.891 Personal history of nicotine dependence
CPT/HCPCS: 71271

== ENCOUNTER 2024-08-08 07:30 | Outpatient (CLI) | payer MEDICARE, MEDICAID, SELFPAY ==
[2024-08-08 08:42] LABS: Cholesterol 201 mg/dL (0-200); HDL Direct 46 mg/dL; Triglycerides 165 mg/dL (<150)
[2024-08-08 08:53] LABS: LDL Cholesterol Direct 93 mg/dL
[2024-08-08 09:10] LABS: Prostate Specific Antigen 0.8 ng/mL (< OR = 4.0)
[2024-08-08 09:42] LABS: Free T4 Free Thyroxine Reflex 1.22 ng/dL (0.78-2.19)
[2024-08-08 10:27] LABS: Total Triiodothyronine (T3) 1.69 NG/ML (0.97-1.69)
== END 2024-08-08 07:31 | disposition home or self-care (01) ==
PROVIDERS: PCP Emergency Medicine; Referring Provider Emergency Medicine; Visit Provider Internal Medicine Cardiovascular Disease
DX: E78.2 Mixed hyperlipidemia (principal); K50.10 Crohn's disease of large intestine without complications; K63.5 Polyp of colon; N40.0 Benign prostatic hyperplasia without lower urinary tract symptoms
CPT/HCPCS: 36415; 80061; 84153; 84439; 84443; 84480

== ENCOUNTER 2025-03-04 12:30 | Outpatient (CLI) | payer MEDICARE, SELFPAY ==
--- OUTSIDE RECORDS SUMMARY | 2025-03-04 12:33 | XMS_ITS | Clinical Summary ---
Author Organization [facility] Address [address] [place] [address] Care Team Providers Care [employer]or[employer] Name Role Phone Dariusz Titus MD Primary Care Provider [phone] Source Comments [facility],non-owned Affiliates and Associated Physician Practices is amultiple site organization consisting of ambulatory clinics and hospital sitesin [place], [place]. This disclosure is being madepursuant to the Care Everywhere program and may not contain all information available regarding this patient. Last updated 18.[facility] Allergies No known active allergies Medications * Be aware that medications may not be up to date on this document. Alwaysverify current medications with the patient. aspirin (ASPIRIN) 81 MG chew tablet Take 1 (one) tablet by mouth once daily 7 Active atorvastatin (LIPITOR) 10 MG tablet Take 1 (one) tablet by mouth once daily 0 Active cyclobenzaprin e (FLEXERIL) 10 MG tablet Take 1 (one) tablet by mouth as needed 0 Active losartan (COZAAR) 25 MG tablet Take 1 (one) tablet by mouth once daily 0 Active rOPINIRole (REQUIP) 1 MG tablet Take 1 (one) tablet by mouth once daily 0 Active HYDROcodone-ac etaminophen (NORCO) 7.5-325 MG tablet Take 1 (one) tablet by mouth 3 times daily as needed For pain. 1 Active cyanocobalamin (VITAMIN B-12) injection Inject into muscle every 30 days Active pantoprazole EC (PROTONIX) 40 MG tablet Take 1 (one) tablet by mouth once daily 90 tablet 3 2 Active Vitamin D, Ergocalciferol , 70336 units CAPSIndication s:Vitamin D deficiency Take 1 capsule by mouth every 7 days 8 capsule 4 Active polyethylene glycol (Golytely) 236 g solution Drink 3/4 of prep at 6pm the night before test. Finish the prep at 4 am the morning of colonoscopy. 4000 mL 4 Active risankizumab-r zaa 360 MG/2.4ML SOCTIndication s:Crohn's Disease Inject 2.4 mL subcutaneously Every 8 Weeks Reasons: Crohn's Disease 2.4 mL 5 4 025 Active Synthroid 25 MCG tablet Take 1 (one) tablet by mouth every 24 hours 4 Active famotidine (Pepcid) 20 MG tablet Take 1 (one) tablet by mouth 2 times daily Active naloxone HCl (Narcan) 4 MG/0.1ML nasal spray [place] 1 (one) spray into the nose as needed 3 Active pravastatin (Pravachol) 10 MG tablet Take 1 (one) tablet by mouth once daily 3 Active multivitamin daily tablet Take 1 (one) tablet by mouth daily with food Active polyethylene glycol (Gavilyte-C) 240 g solution Drink half of prep solution at 5pm the night before colonoscopy. Finish the prep at 4am the day of test. 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 05/29/2021 Crohn's disease of small int estine with intestinal obstruction 06/25/2020 Encounters Date Type Department Care Team Description 01/04/2025 10:25 AM CDT Anesthesia Event [facility] ENDOS[facility] [address] [place] [id number] Mindy Carbone MD 01/04/2025 10:00 AM CDT - 01/04/2025 10:45 AM CDT Surgery [facility] ENDOSCOPY [address] [place] [id number] Julianna Magallanes MD COLONOSCOPY DIAGNOSTIC w/ nila 01/04/2025 8:09 AM CDT - 01/04/2025 11:41 AM CDT Hospital Encounter [facility] [address] [place] [address] Julianna Magallanes MD Surgery General Discharge Disposition: Home or Self Care 01/04/2025 Travel 12/28/2024 Patient Outreach [facility] [address] [place] [address] Madhuri Hermosillo RN 12/18/2024 Patient Outreach [facility] [address] [place] [address] Tiffany Baltazar, MICA from Last 3 Months Immunizations Immunization Administration Dates Next Due INFLUENZA VACCINE, TRIV. (AF LURIA, FLUZONE TRIVALENT; 6MO+) (IIV3) 09/08/2015 COVID MECCA PRIMARY 18+YR 08/12/2021 FLU VACCINE TRI IIV3 SPLIT P F IM (FLUVIRIN) 10/06/2015 HEP A/HEP B 06/12/2020 INFLUENZA VACCINE, CELL CULT URE, QUADR. (FLUCELVAX QUADRIVALENT; 6MO+) (CCIIV4) 09/15/2016 INFLUENZA VACCINE, QUADR. (F LUZONE; FLULAVAL; FLUARIX; AFLURIA QUADRIVALENT; 6MO+), 0.5 ML (IIV4) 05/29/2021,05/25/2020,05/25/2020,2017,07/08/2017 PNEUMOCOCCAL PPSV23 01/28/2021,06/12/2020 TDAP (7yrs+) 12/08/2016 iNFLUENZA VACCINE, RECOM-PATTERSON, QUADR. (FLUBLOCK QUADRIVALENT; 18Y+) (RIV4) 06/12/2019,06/12/2019 Family History Medical History Relation Name Comments CAD (Coronary Artery Disease) Father CAD (Coronary Artery Disease) Mother Crohn's Disease Sister Relation Name Status Comments Father Mother Sister Alive Social History Tobacco Use Types Packs/Day Years Used Date Smoking Tobacco: Former Cigarettes 0.5 42 1 - 06/06/2023 Smokeless Tobacco: Never Tobacco Cessation:Counseling Given: Not Answered Comments:quit 2014 started pack 1 year pack/week Alcohol Use Standard Drinks/Week Comments Yes 4 (1 standard drink = 0.6 oz pur e alcohol) socially AUDIT-C Answer Date Recorded Q1: How often do you have a drink containing alc ohol? 2-3 times a week 08/11/2021 Q2: How many drinks containi ng alcohol do you have on a typical day when you are drinking? 1 or 2 08/11/2021 Q3: How often do you have si x or more drinks on one occasion? Never 08/11/2021 PHQ-2 Answer Date Recorded PHQ2 TOTAL SCORE 0 05/29/2021 Sex and Gender Information Value Date Recorded Sex Assigned at Not on file Legal Sex Male 10:57 AM CDT Gender Identity Not on file Sexual Orientation Not on file Last Filed Vital Signs Vital Sign Reading Time Taken Comments Blood Pressure 156/101 01/04/2025 11:30 AM CDT Pulse 58 01/04/2025 11:30 AM CDT Temperature 36.1 C (97 F) 01/04/2025 11:03 AM CDT Respiratory Rate 10 01/04/2025 11:30 AM CDT Oxygen Saturation 100% 01/04/2025 11:30 AM CDT Inhaled Oxygen Concentration - - Weight 80.7 kg (178 lb) 01/04/2025 9:19 AM CDT Height 182.9 cm (6') 01/04/2025 9:19 AM CDT Body Mass Index 24.14 01/04/2025 9:19 AM CDT Plan of Treatment Health Maintenance Due Date Last Done Comments COLOGUARD (AGES 45-75) - COLON CA SCREENING 1960 CT COLONOGRAPHY - COLON CA SCREENING 1960 FIT - COLON CA SCREENING 1960 FLEX SIG - COLON CA SCREENING 1960 ZOSTER VACCINE (1 of 2) 1978 LUNG CANCER SCREENING 2009 Respiratory Syncytial Virus (RSV) Vaccine Pt: or over 60 yrs (1 - Risk 60-74 years 1-dose series) 2019 HEPATITIS B VACCINE (2 of 3 - Hep B Twinrix 3-dose series) 07/10/2020 06/12/2020 PNEUMOCOCCAL VACCINE 50+ (3 of 3 - PCV) 01/28/2022 01/28/2021, 06/12/2020 COVID-19 VACCINE ( season) 2024 05/31/2023, 06/14/2022, 08/12/2021, Additional history exists AAA SCREENING 2024 DEPRESSION SCREENING 09/05/2024 MEDICARE AWV CALENDAR YEAR 2024 INFLUENZA VACCINE (Season Ended) 2025 05/31/2023, 06/14/2022, 05/29/2021, Additional history exists DTAP/TDAP/TD VACCINES (2 - Td or Tdap) 12/08/2026 12/08/2016 COLON MONITORING 01/04/2035 01/04/2025, 10/2024, 11/30/2023, Additional history exists COLONOSCOPY - COLON CA SCREENING 01/04/2035 01/04/2025, 01/04/2025, 11/30/2023, Additional history exists Colorectal Cancer Screening 01/04/2035 HEPATITIS C SCREENING Completed 10/06/2020 HIV SCREENING Completed 10/06/2020 HIB VACCINE Aged Out No longer eligi ble based on patient's age to complete this topic HPV VACCINE Aged Out No longer eligi ble based on patient's age to complete this topic MENINGOCOCCAL (Group B) VACCINE SHARED DECISION-MAKING Aged Out No longer eligible based on patient's age to complete this topic MENINGOCOCCAL GROUPS A/C/Y/W VACCINE Aged Out No longer eligible based on patient's age to complete this topic Goals Goal Patient Goal Type Associated Problems Recent Progress Patient-Stated? 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) Isis Padilla RN Note: Expected end date: ONGOING Interventions: Keep personal items within easy reach Use some light at night in your room Keep walking paths clutter free and clear Maintain an unobstructed path to the bathroom Procedures Procedure Name Priority Date/Time Associated Diagnosis Comments PATHOLOGY TISSUE Routine 01/04/2025 10:3 8 AM CDT Crohn's disease of small and large intestines with complication (HCC) HI COLONOSCOPY, DIAGNOSTIC 01/04/2025 10:20 AM CDT Crohn's disease of small and large intestines with complication (HCC) Special Needs Colonoscopy Received: Today Cocalvin-Tiffany Bethea, [employer]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 Magallanes July 2024. 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 from Last 3 Months or Most Recently Relevant to Health Maintenance Results * PATHOLOGY TISSUE (01/04/2025 10:38 AM CDT) Case Report Surgical Pathology Report Case: [id number] Authorizing Provider: Julianna Magallanes MD Collected: 01/04/2025 10:38 AM Ordering Location: [facility] Received: 01/04/2025 01:25 PM Pathologist: Sheba Kruse MD Specimens: A) - Small Bowel, diego terminal ileum biopsies r/o ileitis B) - Colon, right colon biopsies r/o colitis and dysplasia C) - Colon, left colon biopsies r/o colitis and dysplasia 01/07/2025 2:48 PM CDT [facility] Final Diagnosis Small intestine, neoterminal ileum, biopsy (A): - Chronic active ileitis with focal erosion, patchy - No granulomas or dysplasia Large intestine, right colon, biopsy (B): - No histopathologic abnormality - No granulomas or dysplasia Large intestine, left colon, biopsy (C): - No histopathologic abnormality - No granulomas or dysplasia 01/07/2025 2:48 PM CDT [facility] at 1448 CDT Microscopic Description and Comment Microscopic examination substantiates the final diagnosis. 01/07/2025 2:48 PM [facility] Clinical History The patient is a 64-year-old man who presents to assess therapeutic response of Crohn's disease of the small bowel and colon, on risankizumab. Operative procedure/findings: Colonoscopy - terminal ileal inflammation, Rutgeerts score i2b improved compared to previous examination, biopsied; patent end-to-side colocolonic anastomosis with healthy mucosa and normal colon, biopsied 01/07/2025 2:48 PM [facility] Gross Description The requisition and specimen(s) are identified with the patient's name, Viet Poole. Received in formalin, specimen A, are 5 pink-mejia and friable soft tissue fragments, ranging from 0.2 to 0.4 cm and measuring 0.5 x 0.4 x 0.2 cm in aggregate, submitted in toto as cassette A1. Received in formalin, specimen B are 5 pink-white and friable soft tissue fragments, ranging from 0.1 to 0.4 cm and measuring 0.5 x 0.5 x 0.1 cm in aggregate, submitted in toto as cassette B1. Received in formalin, specimen C are 7 pink-white and friable soft tissue fragments, ranging from 0.1 to 0.3 cm and measuring 0.8 x 0.6 x 0.1 cm in aggregate, submitted in toto as cassette C1. AKIRA 01/07/2025 2:48 PM [facility] Pathologist Location at [facility] 01/07/2025 2:48 PM [facility] Disclaimer The performance characteristics of all immunohistochemical and indirect immunofluorescence stains (if any) cited in this report were determined by the Histopathology Laboratory of [facility]. Some of these tests were developed by our own laboratory and have not been cleared or approved by the US Food and Drug Administration. The FDA does not require this test to go through premarket FDA review. These tests are used for clinical purposes. They should not be regarded as investigational or for research. This laboratory is certified under the Clinical Laboratory Improvement Amendments (CLIA) as qualified to perform high complexity clinical laboratory testing. This case has been personally reviewed and interpreted by the attending (teaching) pathologist. 01/07/2025 2:48 PM [facility] Embedded Images 01/07/2025 2:48 PM [facility] Biopsy, NOS SMALL BOWEL RESECTION SPECIMEN / Unknown 01/04/2025 10:38 AM CDT 01/04/2025 1:25 PM CDT Comment:Pre-op diagnosis: Crohn's disease of small and large intestines with complication (HCC) [K50.819] Biopsy, NOS COLON PART / Unknown 01/04/2025 10:45 AM CDT 01/04/2025 1:25 PM CDT Comment:Pre-op diagnosis: Crohn's disease of small and large intestines with complication (HCC) [K50.819] Biopsy, NOS COLON PART / Unknown 01/04/2025 10:46 AM CDT 01/04/2025 1:25 PM CDT Comment:Pre-op diagnosis: Crohn's disease of small and large intestines with complication (HCC) [K50.819] us Julianna Magallanes MD LAB - PATHOLOGY/CYTOLOGY ORDER MARVIN Final Result Performing Organization Address City/State/[facility] Co de Phone Number [facility] [address] [phone] * ENDOSCOPY, COLON, DIAGNOSTIC (01/04/2025 10:19 AM CDT) Report Endoscopy POC Endoscopy Department Report _ Patient Name: Viet Tappel Procedure Date: 01/04/2025 10:19 AM Date of : 1960 Classification: Outpatient Gender: Male Ethnicity: Not or Race: White _ Providers: Julianna Magallanes MD Referring MD: Procedure: Colonoscopy Indications: Assess therapeutic response to therapy of Crohn's disease of the small bowel and colon on Rizankizumab every 8 weeks Medications: Monitored Anesthesia Care Patient Profile: This is a 64 year old male. Description of Procedure: Pre-Anesthesia Assessment: - Prior to the procedure, a History and Physical was performed, and patient medications and allergies were reviewed. The patient's tolerance of previous anesthesia was also reviewed. The risks and benefits of the procedure and the sedation options and risks were discussed with the patient. All questions were answered, and informed consent was obtained. Prior Anticoagulants: The patient has taken no anticoagulant or antiplatelet agents. ASA Grade Assessment: II - A patient with mild systemic disease. After reviewing the risks and benefits, the patient was deemed in satisfactory condition to undergo the procedure. After I obtained informed consent, the scope was passed under direct vision. Throughout the procedure, the patient's blood pressure, pulse, and oxygen saturations were monitored continuously. The Colonoscope was introduced through the anus and advanced to the terminal ileum. The colonoscopy was performed without difficulty. The patient tolerated the procedure well. The quality of the bowel preparation was fair. Anatomical landmarks were photographed. Findings: There was evidence of a prior yelr-ef-mhgn ileo-colonic anastomosis at the anastomosis at a site of previous tattooing. This was patent and was characterized by congestion, erythema and ulceration. The anastomosis was traversed. Inflammation characterized by erosions, erythema and shallow ulcerations was found as patches surrounded by normal mucosa in the very distal part of the neoterminal ileum. The anastomosis was involved. The inflammation was graded as Rutgeerts Score i2b (more than five aphthous lesions with normal intervening mucosa or skip areas of larger lesions or lesions confined to the ileocolonic anastomosis), and when compared to previous examinations, the findings are improved. Biopsies were taken with a cold forceps for histology. There was evidence of a prior end-to-side colo-colonic anastomosis at the anastomosis at a site of previous tattooing. This was patent and was characterized by healthy appearing mucosa. The anastomosis was traversed. The colon (entire examined portion) appeared normal. Biopsies were taken with a cold forceps for histology. Non-bleeding external and internal hemorrhoids were found during retroflexion. The hemorrhoids were medium-sized. Estimated Blood Loss: Estimated blood loss: none. Complications: No immediate complications. Impression: - Preparation of the colon was fair. - Inflammation was found in the terminal ileum. This was graded as Rutgeerts Score i2b (more than five aphthous lesions or skip areas of larger lesions or lesions confined to the ileocolonic anastomosis), improved compared to previous examinations. Biopsied. - Patent end-to-side colo-colonic anastomosis, characterized by healthy appearing mucosa. - The entire examined colon is normal. Biopsied. Recommendation: - Await pathology results. - Repeat colonoscopy for surveillance based on pathology results. - Resume regular diet. - Continue Rizankizumab every 8 weeks Attending Participation: I personally performed the entire procedure. Procedure Code(s): --- Professional --- 20353, Colonoscopy, flexible; with biopsy, single or multiple Diagnosis Code(s): --- Professional --- K52.9, Noninfective gastroenteritis and colitis, unspecified Z98.0, Intestinal bypass and anastomosis status K50.80, Crohn's disease of both small and large intestine without complications CPT copyright 2021 [employer]. All rights reserved. The codes documented in this report are preliminary and upon lab analyst review may be revised to meet current compliance requirements. 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 Hepatitis C Antibody Non-react ofelia Non-reac tive 10/06/2020 1:34 PM [facility] Comment:Hepatitis C Antibody screen indicates no serologic evidence of past or current infection with Hepatitis C Virus. Patients with unexplained liver disease who are immunocompromised or suspected of having acute Hepatitis C infection may benefit from Nucleic Acid Test (ISAIAS) for Hepatitis C Viral RNA to confirm Hepatitis C status. 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 [facility] Hepatitis B Core Virus Antibody IgM Non-react ofelia Non-reac tive 10/06/2020 1:34 PM [facility] Blood BLOOD SPECIMEN / Unknown Venipuncture / Unknown 10/06/2020 12:27 PM [employer]UC[employer] TEACHER 10/06/2020 12:50 PM [employer]UC[employer] TEACHER us Yosi Carrera MD LAB - CHEMISTRY ORDERABLES Delfina simental Result Performing Organization Address City/State/[facility] Co de Phone Number [facility] [address] [place] [address], [facility] [phone] from Last 3 Months or Most Recently Relevant to Health Maintenance Insurance MEDICAID - OUT OF STATE UHC MANAGED MEDICARE ADV MEDICAID - [place] UHC MANAGED MEDICARE ADV Advance Directives * Full Code (Latest Code Status on File) Date Activated Date Inactivated Comments 10/06/2020 1:13 PM 10/12/2020 11:51 AM Care Teams [employer] Relationship Specialty Start Date End Date Dariusz Titus MD PCP - General 02/05/20
--- OUTSIDE RECORDS SUMMARY | 2025-03-04 12:33 | XMS_ITS | Clinical Summary ---
Author Organization [facility] Address [address] [facility] [address] [place] [address] Phone Care Team Providers Care Porcelain Enamel Repairer Name Role Phone Titus Dariusz Primary Care Provider [phone] Jean Corral MD Unavailable [phone] Allergies No known active allergies Medications HYDROcodone-shae taminophen (NORCO) 7.5-325 MG Tablet Take by mouth. 7 Active rOPINIRole (REQUIP) 1 MG Tablet Take 1 mg by mouth 3 times daily. Active atorvastatin (LIPITOR) 10 MG Tablet Take 10 mg by mouth daily. Active losartan (COZAAR) 25 MG Tablet Take 25 mg by mouth daily. Active cyclobenzaprine (FLEXERIL) 10 MG Tablet Take 10 mg by mouth 3 times daily as needed. Active aspirin EC 81 MG Tablet Delayed Response Take 81 mg by mouth daily. Active famotidine (PEPCID) 20 MG Tablet Take 20 mg by mouth 2 times daily. Active pantoprazole (PROTONIX) 40 MG Tablet Delayed Response TAKE 1 TABLET BY MOUTH ONCE DAILY 1 Active Cyanocobalamin (B-12) 1000 MCG SL Tablet 1,000 mcg by Sublingual route daily. 30 Each 3 3 Active Risankizumab-rz aa (Skyrizi Pen) 150 MG/ML Solution Auto-injector by Subcutaneous route every 90 days. 4 Active VITAMIN D PO Take by mouth daily. Active Active Problems Problem Noted Date Diagnosed Date B12 deficiency 08/14/2021 Crohn's disease of small int estine with intestinal obstruction 06/25/2020 Stage 1 chronic kidney disease 03/06/2019 Essential (primary) hypertension 01/05/2017 Raynaud's disease 09/18/2014 Gastroesophageal reflux disease 02/15/2014 Vitamin D deficiency 01/18/2014 Ankylosing spondylitis 01/18/2014 Encounters Date Type Department Care Team Description 03/01/2025 10:00 AM CDT Clinical Support [facility] [address] [address] Nurse, [facility] [place] B12 deficiency (Primary Dx) 03/01/2025 Travel 02/01/2025 10:00 AM CDT Clinical Support [facility] [address] [address] Nurse, [facility] [place] B12 deficiency (Primary Dx) 02/01/2025 Travel 12/28/2024 10:00 AM CDT Clinical Support [facility] [address] [address] Nurse, [facility] [place] B12 deficiency (Primary Dx) 12/28/2024 Travel from Last 3 Months Immunizations Immunization Administration Dates Next Due Covid-19 Vaccine, Vector-nr, Rs-ad26, Pf, 0.5 Ml ([facility]) 08/12/2021,12/07/2020 HEP A/HEP B Combined Vaccine 06/12/2020 Hepatitis A And Hepatitis B Vaccine 06/12/2020 Influenza Vaccine 10/06/2015 Influenza Vaccine, MDCK,quad rivalent, pres free 09/15/2016 Influenza Vaccine, Quadrivalent, PF 06/05,05/29/2021,05/25/2020,2017,07/08/2017 Influenza, Recombinant, Quadrivalent,injectable, Pf 06/12/2019 Pneumococcal Vaccine Adult - 23 Valent 06/12/2020 TDAP Vaccine 12/08/2016 Tuberculin Skin Test; Purifi ed Protein Derivative Solutiol 04/23/2014 Family History Medical History Relation Name Comments Heart Surgery Mother Relation Name Status Comments Brother 1 Alive Brother 2 Alive Father Mother Alive Sister 1 Alive Sister 2 Alive Sister 3 Alive Sister 4 Alive Sister 5 Alive Social History Tobacco Use Types Packs/Day Years Used Date Smoking Tobacco: Former Cigarettes Q uit: 2010 Smokeless Tobacco: Never Tobacco Cessation:Counseling Given: Not Answered Alcohol Use Standard Drinks/Week Comments Yes 0 (1 standard drink = 0.6 oz pur e alcohol) 3-4 AUDIT-C Answer Date Recorded Q1: How often do you have a drink containing alcohol? 4 or more times a week 03/10/2020 Q2: How many drinks containi ng alcohol do you have on a typical day when you are drinking? 3 or 4 0 Q3: How often do you have si x or more drinks on one occasion? Never 03/10/2020 PHQ-2 Answer Date Recorded Total Score - Questions 1-9 0 11/2020 Education Answer Date Recorded What is the highest level of school you have completed or the highest degree you have received? High school graduate 03/10/2020 Sex and Gender Information Value Date Recorded Sex Assigned at Not on file Legal Sex Male 2:39 PM CDT Gender Identity Not on file Sexual Orientation Not on file Last Filed Vital Signs Vital Sign Reading Time Taken Comments Blood Pressure 120/80 10/05/2024 11:52 AM SHADE MATCHER Pulse 84 10/05/2024 11:52 AM SHADE MATCHER Temperature 36.7 C (98 F) 10/05/2024 11:52 AM SHADE MATCHER Respiratory Rate 18 10/05/2024 11:52 AM SHADE MATCHER Oxygen Saturation 95% 10/05/2024 11:52 AM SHADE MATCHER Inhaled Oxygen Concentration - - Weight 84.4 kg (186 lb) 10/05/2024 11:52 AM SHADE MATCHER Height 180.3 cm (5' 11) 10/05/2024 11:52 AM SHADE MATCHER Body Mass Index 25.94 10/05/2024 11:52 AM SHADE MATCHER Plan of Treatment Upcoming Encounters Date Type Department Care Team (Late st Contact Info) Description 03/29/2025 10:00 AM CDT [facility] Support [facility] [address] [address] [facility] 05/03/[facility]25 10:00 AM CDT Clinical Support [facility] [address] [address] [facility] 05/31/2025 10:00 AM CDT Clinical Support [facility] [address] [phone] Nurse, Cc [facility] 06/28/2025 10:00 AM CDT Clinical Support [facility] [address] [address] Nurse, [facility] 08/02/2025 10:00 AM SHADE MATCHER Clinical Support [facility] [address] [address] Nurse, Becki [facility] 10/04/2025 10:45 AM SHADE MATCHER Lab [facility] [address] [address] Lab, [facility] 10/04/2025 11:00 AM SHADE MATCHER Office Visit [facility] [address] [address] Jean Corral MD [address] [place] [phone] 10/04/2025 11:15 AM SHADE MATCHER Clinical Support [facility] [address] [phone] Nurse, [facility] Health Maintenance Due Date Last Done Comments Hepatitis C Virus (HCV) Screening 1959 Cologuard 2004 Immunochemical Fecal Occult Blood 2004 Zoster Immunization (1 of 2) 2009 PSA Discussion 2014 Respiratory Syncytial Virus (RSV) Immunization (Adult) (1 - Risk 60-74 years 1-dose series) 2019 Hepatitis B Immunization (2 of 3 - 19+ 3-dose series) 07/10/2020 06/12/2020, 06/12/2020 Pneumococcal Immunization (50+ years) (2 of 2 - PCV) 01/28/2022 01/28/2021, 06/12/2020 SARS-COV-2 Immunization (2023- season) 2024 05/31/2023, 06/14/2022, 08/12/2021, Additional history exists AAA Screening Ultrasound 2024 Influenza Immunization (Season Ended) 2025 05/31/2023, 06/14/2022, 05/29/2021, Additional history exists Td Immunization Every 10 Years (Adults With 1 Tdap) 12/08/2026 12/08/2016 Colonoscopy 01/04/2035 01/04/2025, 03/03/2024, 08/11/2021, Additional history exists Colorectal Cancer Screening 01/04/2035 DTaP/Tdap/Td Immunization Discontinued 12/08/2016 Pneumococcal Immunization Combined Discontinued 01/28/2021, 06/12/2020 Human Papillomavirus (HPV) Immunization Aged Out No longer eligible based on patient's age to complete this topic Meningococcal Immunization (ACWY) Aged Out No longer eligible based on patient's age to complete this topic Rotavirus Immunization Aged Out No lo nger eligible based on patient's age to complete this topic Insurance MEDICAID [place] MEDICARE C [employer] Care Teams Porcelain Enamel Repairer Relationship Specialty Start Date End Date Dariusz Titus [address] [place] [address] PCP - General Family Medicine 02/29/20 Jean Corral MD [address] [place] [phone] Consulting Physician Oncology 10/30/21
--- OUTSIDE RECORDS SUMMARY | 2025-03-04 12:33 | XMS_ITS | Encounter Summary ---
Author Organization [facility] Address [address] [facility] [place] [address] Care Team Providers Care Chief Diversity Officer Name Role Phone Dariusz Titus MD Primary Care Provider [phone] Encounter Details Date Type Department Care Team (Late st Contact Info) Description 08/12/2021 Postop Outreach [facility] [address] [place] [phone] Edita Villafuerte RN Social History Tobacco Use Types Packs/Day Years Used Date Smoking Tobacco: Former Cigarettes 3 40 0 09/18/1980 - 09/18/2020 Smokeless Tobacco: Never Comments:quit 2013 started p ack 1 year pack/week Alcohol Use Standard Drinks/Week Comments Yes 3 (1 standard drink = 0.6 oz pur [...] on file Sexual Orientation Not on file documented as of this encounter Functional Status * Is person deaf or have serious hearing difficulty? Answer Date of Assessment Author No 10/06/2020 6:16 PM Govind Goyal RN * Is person blind or have serious difficulty seeing? Answer Date of Assessment Author No 10/06/2020 6:16 PM TEACHING PASTOR Avalos, Govind kasper RN * Does person have serious difficulty walking/climbing stairs? Answer Date of Assessment Author No 10/06/2020 6:16 PM [facility] Avalos, Govind aksper RN * Does person have difficulty dressing/bathing? Answer Date of Assessment Author No 10/06/2020 6:16 PM [facility] AvalosGovind RN * Does person have difficulty doing errands alone? Answer Date of Assessment Author No 10/06/2020 6:16 PM [facility] AvalosGovind RN documented as of this encounter Mental Status * Does person have difficulty concentrating/remembering/making decisions? Answer Entry Date Author No 10/06/2020 6:16 PM [facility] AvalosGovind RN documented in this encounter Plan of Treatment Not on file documented as of this encounter Goals Goal Patient Goal Type Associated Problems Recent Progress Patient-Stated? Author Medication Management General On track( 025 12:54 PM TEACHING PASTOR) Lelia Arreola RN Note: Expected end date: ongoing Interventions: Take all medications as prescribed Let your doctor know right away about any changes in your medications Make sure to request a refill of your medication at least one week prior to your last dose documented as of this encounter Visit Diagnoses Not on filedocumented in this encounter Additional Health Concerns Infection Onset Date Last Indicated Resolved Time CDIFF Under Investigation 10/25/2024 10/26/2024 10:10 PM TEACHING PASTOR documented as of this encounter Care Teams Chief Diversity Officer Relationship Specialty Start Date End Date Dariusz Titus MD PCP - General 02/05/20 documented as of this encounter
--- OUTSIDE RECORDS SUMMARY | 2025-03-04 12:34 | XMS_ITS | Clinical Summary ---
Author Organization [facility] Address [address] [place] [address] Care Team Providers Care Director Of Broadcast Name Role Phone Dariusz Titus MD Primary Care Provider [phone] Social History Tobacco Use Types Packs/Day Years Used Date Smoking Tobacco: Never Assessed Sex and Gender Information Value Date Recorded Sex Assigned at Not on file Legal Sex Male 8:12 PM CDT Gender Identity Not on file Sexual Orientation Not on file Plan of Treatment Health Maintenance Due Date Last Done Comments Colorectal Cancer Screening Colonoscopy (10 Years) 1959 Hepatitis C 1977 DTaP, Tdap and Td Vaccines ( 1 - Tdap) 1978 Pneumococcal Vaccine: 50+ Ye ars (1 of 1 - PCV) 2009 Zoster Vaccines (1 of 2) 2009 COVID-19 Vaccine ( - 2023-2 5 season) 2024 RSV Immunization or 60+ Years (1 - 1-dose 75+ series) 2034 Meningococcal B Vaccine Aged Out No l onger eligible based on patient's age to complete this topic Meningococcal Vaccine Aged Out No tree chely eligible based on patient's age to complete this topic RSV Immunizations Under 20 Months Aged Out No longer eligible based on patient's age to complete this topic Care Teams Director Of Broadcast Relationship Specialty Start Date End Date Dariusz Titus MD PCP - General 03/07/14
--- OUTSIDE RECORDS SUMMARY | 2025-03-04 12:34 | XMS_ITS | Encounter Summary ---
Author Organization [facility] Address [address] [place] [address] Phone Care Team Providers Care Organizational Effectiveness Director Name Role Phone Dariusz Titus Primary Care Provider [phone] Jean Corral MD Unavailable [phone] Encounter Details Date Type Department Care Team (Late st Contact Info) Description 01/16/2021 Telephone [facility] [address] [place] [address] Jean Corral MD [address] [place] [address] Social History Tobacco Use Types Packs/Day Years Used Date Smoking Tobacco: Former Cigarettes Q uit: 2010 Smokeless Tobacco: Never Alcohol Use Standard Drinks/Week Comments Yes 0 [...] Recorded Total Score - Questions 1-9 0 07/06 Education Answer Date Recorded What is the highest level of school you have completed or the highest degree you have received? High school graduate 03/10/2020 Sex and Gender Information Value Date Recorded Sex Assigned at Not on file Legal Sex Male 2:39 PM CDT Gender Identity Not on file Sexual Orientation Not on file documented as of this encounter Miscellaneous Notes * Telephone Encounter - RomyDecember - 01/16/2021 12:36 PM CDT pt no showed appt today. I called to reschedule but had to leave a message. I will also send a letter out to the pt. documented in this encounter Plan of Treatment Upcoming Encounters Date Type Department Care Team (Late st Contact Info) Description 03/29/2025 10:00 AM CDT Clinical Support [facility] [address] [phone] Nurse, Cc [facility] 05/03/2025 10:00 AM CDT Clinical Support [facility] [address] [address] Nurse, Cc [facility] 05/31/2025 10:00 AM CDT Clinical Support [facility] [address] [address] Nurse, [facility]c [facility] 06/28/2025 10:00 AM CDT Clinical Support [facility] [address] [address] Nurse, [facility] 08/02/2025 10:00 AM MARKETING EDUCATION TEACHER Clinical Support [facility] [address] [address] Nurse, [facility] 10/04/2025 10:45 AM MARKETING EDUCATION TEACHER Lab [facility] [address] [address] Lab, [facility] 10/04/2025 11:00 AM MARKETING EDUCATION TEACHER Office Visit [facility] [address] [phone] Jean Corral MD [address] [place] [phone] 10/04/2025 11:15 AM MARKETING EDUCATION TEACHER Clinical Support [facility] [address] [place] [address] Nurse, Becki ALAN documented as of this encounter Visit Diagnoses Not on filedocumented in this encounter Additional Health Concerns Assessment Noted Time PHQ-9 Depression Total Score: 0 07/18/20 20 8:20 AM MARKETING EDUCATION TEACHER documented as of this encounter Care Teams Organizational Effectiveness Director Relationship Specialty Start Date End Date Dariusz Titus [address] [place] [address] PCP - General Family Medicine 02/29/20 Jean Corral MD [address] [place] [phone] Consulting Physician Oncology 10/30/21 documented as of this encounter
--- OUTSIDE RECORDS SUMMARY | 2025-03-04 12:34 | XMS_ITS | Clinical Summary ---
Author Organization [facility] Address [address], [place] [address] Phone Care Team Providers Care Art Supervisor Name Role Phone Unavailable Primary Care Provider Unavailabl e Allergies No known active allergies Medications losartan (COZAAR) 25 MG tablet 1 tab by mouth daily 0 01/31/2018 Active aspirin (ASPIRIN ADULT LOW STRENGTH) 81 MG chewable tablet one tab daily 0 01/05/2017 Active cyclobenzaprine (FLEXERIL) 10 MG tablet 1 tab by mouth twice daily 0 01/31/2018 Active ergocalciferol (VITAMIN D2) 83639 units capsule one capsule weekly 0 01/05/2017 Active HYDROcodone-shae taminophen (NORCO) 7.5-325 MG per tablet one tab three times daily 0 01/05/2017 Active Active Problems Problem Noted Date Diagnosed Date Chronic kidney disease stage 1 03/06/2019 Proteinuria 01/05/2017 Essential (primary) hypertension 01/05/2017 Ankylosing spondylitis in spine 01/05/2017 Immunizations Immunization Administration Dates Next Due Influenza TIV (IM) 09/08/2015 Family History Medical History Relation Comments Coronary arteriosclerosis Father Diabetes mellitus Father Coronary arteriosclerosis Mother Kidney disease Neg Hx Relation Status Comments Father Mother Social History Tobacco Use Types Packs/Day Years Used Date Smoking Tobacco: Former Smokeless Tobacco: Never Alcohol Use Standard Drinks/Week Comments Yes 0 (1 standard drink = 0.6 oz pur e alcohol) occasionally Sex and Gender Information Value Date Recorded Sex Assigned at Not on file Legal Sex Male 9:09 AM MST Gender Identity Not on file Sexual Orientation Not on file Plan of Treatment Health Maintenance Due Date Last Done Comments Pneumococcal PPSV23/PCV13 65 + Years / Low and Medium Risk (1 of 2 - PCV) 2009 Influenza Vaccine (Season Ended) 2025 09/08/19 16
--- OUTSIDE RECORDS SUMMARY | 2025-03-04 12:34 | XMS_ITS | Encounter Summary ---
Author Organization [facility] Address [address] [place] [address] Phone Care Team Providers Care Distribution Engineer Name Role Phone Dariusz Titus Primary Care Provider [phone] Jean Corral MD Unavailable [phone] Encounter Details Date Type Department Care Team (Late st Contact Info) Description 07/11/2020 Telephone [facility] [address] [place] [address] Jean Corral MD [address] [place] [address] Social History Tobacco Use Types [...] occasion? Never 03/10/2020 PHQ-2 Answer Date Recorded PHQ-2 Score 0 03/10/2020 Education Answer Date Recorded What is the [...] encounter Miscellaneous Notes * Telephone Encounter - Deb Hyman - 07/11/2020 11:58 AM CST Patient no showed his appointment and I left a voice message for patient to call the office to reschedule. Sent out a no show letter for him. PHYSICAL SCIENTIST documented in this encounter Plan of Treatment Upcoming Encounters Date Type Department Care Team (Late st Contact Info) Description 03/29/2025 10:00 AM CDT Clinical Support [facility] [address] [address] Nurse, Cc [facility] 05/03/2025 10:00 AM CDT Clinical Support [facility] [address] [address] Nurse, Cc [facility] 05/31/2025 10:00 AM CDT Clinical Support [facility] [address] [address] Nurse, Cc [facility] 06/28/2025 10:00 AM CDT Clinical Support [facility] [address] [address] Nurse, [facility] 08/02/2025 10:00 AM GIS PHYSICAL SCIENTIST Clinical Support [facility] [address] [address] Nurse, Cc [facility] 10/04/2025 10:45 AM GIS PHYSICAL SCIENTIST Lab [facility] [address] [address] Lab, [facility] 10/04/2025 11:00 AM GIS PHYSICAL SCIENTIST Office Visit [facility] [address] [address] Jean Corral MD [address] [place] [phone] 10/04/2025 11:15 AM GIS PHYSICAL SCIENTIST Clinical Support [facility] [address] [place] [address] Nurse, Becki ALAN documented as of this encounter Visit Diagnoses Not on filedocumented in this encounter Additional Health Concerns Assessment Noted Time PHQ-9 Depression Total Score: 0 04/18/20 20 9:26 AM CDT documented as of this encounter Care Teams Distribution Engineer Relationship Specialty Start Date End Date Dariusz Titus [address] [place] [address] PCP - General Family Medicine 02/29/20 Jean Corral MD [address] [place] [phone] Consulting Physician Oncology 10/30/21 documented as of this encounter
== END 2025-03-04 12:31 | disposition home or self-care (01) ==
PROVIDERS: PCP Emergency Medicine; Visit Provider Emergency Medicine
DX: E03.9 Hypothyroidism, unspecified (principal)
CPT/HCPCS: 36415; 84443

== ENCOUNTER 2025-03-06 11:56 | Outpatient (CLI) | payer MEDICARE, MEDICAID, SELFPAY ==
--- NOTE | ~2025-03-06 | US_ITS ---
Thyroid ultrasound. Clinical History: Hypothyroidism Findings: Real-time sonography of the thyroid gland was performed. The right lobe measures 4.7 x 1.2 x 1.4 cm. The left lobe measures 3.6 x 1.1 x 1.7 cm. The isthmus is 4 mm in AP diameter. There is a 1.5 x 0.6 x 1.3 cm mixed solid and cystic nodule at the isthmus. There is a 4 mm hypoechoi c nodule in the right thyroid lobe. Impression: Thyroid nodules, as above, which require no further follow-up.. Reviewed, dictated and finalized at location M. Impression: Thyroid nodules, as above, which require no further follow-up..
== END 2025-03-06 11:57 | disposition home or self-care (01) ==
LOC: MICIMG 11:57
PROVIDERS: PCP Emergency Medicine; Visit Provider Emergency Medicine
DX: E03.9 Hypothyroidism, unspecified (principal); E04.2 Nontoxic multinodular goiter
CPT/HCPCS: 76536

== ENCOUNTER 2025-04-01 08:25 | Outpatient (CLI) | payer MEDICARE, MEDICAID, SELFPAY ==
--- NOTE | ~2025-04-01 | XR_ITS ---
EXAM: XR wrist LT min 3V DATE: 04/01/2025 08:43 HISTORY: M25.532 - Pain in left wrist . COMPARISON: 07/09/2022. FINDINGS: Normal mineralization. No new acute fracture or dislocation. Chronic fracture fragment pos teriorly in the lateral view likely from old triquetral fracture. No lytic or blastic lesion. Mild sc attered degenerative changes. Minimal ulnar positive variance. No erosion or periosteal change. Soft tissues within normal limits. IMPRESSION: Mild polyarticular osteoarthritis of the wrist. Old triquetral fracture. Reviewed, dictated and finalized at location K. IMPRESSION: Mild polyarticular osteoarthritis of the wrist. Old triquetral frac ture.
--- OUTSIDE RECORDS SUMMARY | 2025-04-01 08:30 | XMS_ITS | Continuity of Care Document ---
Author Organization [facility] Address [address] [place] [address] Phone Care Team Providers Care Clinical Esthetician Name Role Phone Dariusz Titus MD Unavailable Unavailable Allergies, Adverse Reactions, Alerts Substance Reaction Status Criticality No Known Allergies Active No Inform ation Medications Medication Instructions Dosage Effective Dates (start - stop) Status Comments Pepcid 20 mg tablet take 1 tablet by oral route 2 times every day 20 MG - Active hydrocodone 7.5 mg-acetaminophen 325 mg tablet take 1 tablet by oral route 3 times every day as needed for pain as needed 1 tablet - Active PRN for pain, avoid driving or operate machines, losartan 25 mg tablet take 1 tablet by oral route every day 25 MG - Active cyclobenzaprine 10 mg tablet take 1 tablet by oral route every day as needed 10 MG - Active avoid driving or operate machines, avoid driving or operate machines Synthroid 25 mcg tablet take 1 tablet by oral route every day 25 MCG - Active ropinirole 1 mg tablet take 1 tablet by oral route every bedtime 1 MG - Active Skyrizi 150 mg/mL subcutaneous pen injector inject (150MG) by subcutaneous route every 12 weeks 150 MG - Active Protonix 40 mg tablet,delayed release take 1 tablet by oral route every day 40 MG - Active pravastatin 20 mg tablet take 1 Tablet by oral route every day 20 MG - Active Procedures Procedure Date OFFICE/OUTPATIENT VISIT, EST OFFICE/OUTPATIENT VISIT, EST OFFICE/OUTPATIENT VISIT, EST OFFICE/OUTPATIENT VISIT, EST PREV VISIT, EST, 65 & OVER OFFICE/OUTPATIENT VISIT, EST OFFICE/OUTPATIENT VISIT, EST OFFICE/OUTPATIENT VISIT, EST OFFICE/OUTPATIENT VISIT, EST OFFICE/OUTPATIENT VISIT, EST OFFICE/OUTPATIENT VISIT, EST OFFICE/OUTPATIENT VISIT, EST OFFICE/OUTPATIENT VISIT, EST OFFICE/OUTPATIENT VISIT, EST OFFICE/OUTPATIENT VISIT, EST OFFICE/OUTPATIENT VISIT, EST OFFICE/OUTPATIENT VISIT, EST OFFICE/OUTPATIENT VISIT, EST OFFICE/OUTPATIENT VISIT, EST OFFICE/OUTPATIENT VISIT, EST OFFICE/OUTPATIENT VISIT, EST OFFICE/OUTPATIENT VISIT, EST OFFICE/OUTPATIENT VISIT, EST OFFICE/OUTPATIENT VISIT, EST OFFICE/OUTPATIENT VISIT, EST OFFICE/OUTPATIENT VISIT, EST OFFICE/OUTPATIENT VISIT, EST OFFICE/OUTPATIENT VISIT, EST PREV VISIT, EST, AGE 40-64 OFFICE/OUTPATIENT VISIT, EST OFFICE/OUTPATIENT VISIT, EST OFFICE/OUTPATIENT VISIT, EST OFFICE/OUTPATIENT VISIT, EST OFFICE/OUTPATIENT VISIT, EST OFFICE/OUTPATIENT VISIT, EST OFFICE/OUTPATIENT VISIT, EST OFFICE/OUTPATIENT VISIT, EST OFFICE/OUTPATIENT VISIT, EST OFFICE/OUTPATIENT VISIT, EST OFFICE/OUTPATIENT VISIT, EST OFFICE/OUTPATIENT VISIT, EST OFFICE/OUTPATIENT VISIT, EST OFFICE/OUTPATIENT VISIT, EST PREV VISIT, EST, AGE 40-64 OFFICE/OUTPATIENT VISIT, EST OFFICE/OUTPATIENT VISIT, EST OFFICE/OUTPATIENT VISIT, EST OFFICE/OUTPATIENT VISIT, EST OFFICE/OUTPATIENT VISIT, EST OFFICE/OUTPATIENT VISIT, EST OFFICE/OUTPATIENT VISIT, EST OFFICE/OUTPATIENT VISIT, EST OFFICE/OUTPATIENT VISIT, EST OFFICE/OUTPATIENT VISIT, EST OFFICE/OUTPATIENT VISIT, EST OFFICE/OUTPATIENT VISIT, EST OFFICE/OUTPATIENT VISIT, EST OFFICE/OUTPATIENT VISIT, EST OFFICE/OUTPATIENT VISIT, EST OFFICE/OUTPATIENT VISIT, EST OFFICE/OUTPATIENT VISIT, EST PPPS, subseq visit OFFICE/OUTPATIENT VISIT, EST OFFICE/OUTPATIENT VISIT, EST OFFICE/OUTPATIENT VISIT, EST OFFICE/OUTPATIENT VISIT, EST OFFICE/OUTPATIENT VISIT, EST OFFICE/OUTPATIENT VISIT, EST OFFICE/OUTPATIENT VISIT, EST OFFICE/OUTPATIENT VISIT, EST OFFICE/OUTPATIENT VISIT, EST OFFICE/OUTPATIENT VISIT, EST OFFICE/OUTPATIENT VISIT, EST OFFICE/OUTPATIENT VISIT, EST OFFICE/OUTPATIENT VISIT, EST OFFICE/OUTPATIENT VISIT, EST OFFICE/OUTPATIENT VISIT, EST OFFICE/OUTPATIENT VISIT, EST OFFICE/OUTPATIENT VISIT, EST OFFICE/OUTPATIENT VISIT, EST PPPS, subseq visit OFFICE/OUTPATIENT VISIT, EST OFFICE/OUTPATIENT VISIT, EST OFFICE/OUTPATIENT VISIT, EST OFFICE/OUTPATIENT VISIT, EST OFFICE/OUTPATIENT VISIT, EST OFFICE/OUTPATIENT VISIT, EST OFFICE/OUTPATIENT VISIT, EST OFFICE/OUTPATIENT VISIT, EST OFFICE/OUTPATIENT VISIT, EST OFFICE/OUTPATIENT VISIT, EST OFFICE/OUTPATIENT VISIT, EST OFFICE/OUTPATIENT VISIT, EST OFFICE/OUTPATIENT VISIT, EST OFFICE/OUTPATIENT VISIT, EST PPPS, initial visit OFFICE/OUTPATIENT VISIT, EST OFFICE/OUTPATIENT VISIT, EST OFFICE/OUTPATIENT VISIT, EST OFFICE/OUTPATIENT VISIT, EST OFFICE/OUTPATIENT VISIT, EST OFFICE/OUTPATIENT VISIT, EST OFFICE/OUTPATIENT VISIT, EST OFFICE/OUTPATIENT VISIT, EST OFFICE/OUTPATIENT VISIT, EST OFFICE/OUTPATIENT VISIT, EST OFFICE/OUTPATIENT VISIT, EST OFFICE/OUTPATIENT VISIT, EST OFFICE/OUTPATIENT VISIT, EST OFFICE/OUTPATIENT VISIT, EST OFFICE/OUTPATIENT VISIT, EST OFFICE/OUTPATIENT VISIT, EST OFFICE/OUTPATIENT VISIT, EST OFFICE/OUTPATIENT VISIT, EST OFFICE/OUTPATIENT VISIT, EST OFFICE/OUTPATIENT VISIT, EST OFFICE/OUTPATIENT VISIT, EST OFFICE/OUTPATIENT VISIT, EST OFFICE/OUTPATIENT VISIT, EST PREV VISIT, EST, AGE 40-64 OFFICE/OUTPATIENT VISIT, EST OFFICE/OUTPATIENT VISIT, EST OFFICE/OUTPATIENT VISIT, EST OFFICE/OUTPATIENT VISIT, EST OFFICE/OUTPATIENT VISIT, EST OFFICE/OUTPATIENT VISIT, EST OFFICE/OUTPATIENT VISIT, EST OFFICE/OUTPATIENT VISIT, EST OFFICE/OUTPATIENT VISIT, EST OFFICE/OUTPATIENT VISIT, EST OFFICE/OUTPATIENT VISIT, EST PREV VISIT, EST, AGE 40-64 OFFICE/OUTPATIENT VISIT, EST OFFICE/OUTPATIENT VISIT, EST OFFICE/OUTPATIENT VISIT, EST OFFICE/OUTPATIENT VISIT, EST OFFICE/OUTPATIENT VISIT, EST OFFICE/OUTPATIENT VISIT, EST OFFICE/OUTPATIENT VISIT, EST OFFICE/OUTPATIENT VISIT, EST OFFICE/OUTPATIENT VISIT, EST PREV VISIT, NEW, AGE 40-64 Advance Directives Directive Yes / No Effective Date File Name No Information Encounters Encounter Description Practice Location Reason(s) For Visit Diagnoses Date Provider Providers Copied on Encounter OFFICE/OUTPA TIENT VISIT, [facility], [address], [address], [place] tel:[phone] [facility] thyroid1 (chief complaint) pain (chief complaint) GERd (chief complaint) GERD1 (chief complaint) wrist pain1 (chief complaint) Chronic pain syndromeHypothyroid ismMixed hyperlipidemiaPain in left wristGERD w/o esophagitis 5 Tacho Arzola. [address], [address] , [place]. tel:[phone] OFFICE/OUTPA TIENT VISIT, [facility], [address], [place], [place], [address], [place] tel:[phone] [facility] pain (chief complaint) hypothyroi dism1 (chief complaint) HTN (chief complaint) HLP (chief complaint) Chronic pain syndromeEssential (primary) hypertensionHypothy roidismMixed hyperlipidemia 5 Tacho Arzola. [address], [place], [place], [address] , [place]. tel:[phone] OFFICE/OUTPA TIENT VISIT, [facility], [address], [place], [place], [address], [place] tel:[phone] [facility] pain (chief complaint) crohn disease1 (chief complaint) Chronic pain syndromeCrohn's disease of large intestine without complications 5 Tacho Arzola. [address], [place], [place], [address] , [place]. tel:[phone] OFFICE/OUTPA TIENT VISIT, [facility], [address], [place], [place], [address], [place] tel:[phone] [facility] pain (chief complaint) Chronic pain syndrome 5 Tacho Mcmahon [address], [place], [place], [address] , [place]. tel:[phone] PREV VISIT, EST, 65 & OVER [facility], [address], [place], [place], [address], [place] tel:[phone] [facility] physical (chief complaint) Encounter for general adult medical examination without abnormal findings 5 Tacho Mcmahon [address], [place], [place], [address] , [place]. tel:[phone] OFFICE/OUTPA TIENT VISIT, [facility], [address], [place], [place], [address], [place] tel:[phone] [facility] pain (chief complaint) RLS (chief complaint) thyroid1 (chief complaint) HTN (chief complaint) HypothyroidismEssen tial (primary) hypertensionRestles s legs syndromeChronic pain syndrome 5 Tacho Mcmahon [address], [place], [place], [address] , [place]. tel:[phone] OFFICE/OUTPA TIENT VISIT, [facility], [address], [place], [place], [address], [place] tel:[phone] [facility] pain (chief complaint) Chronic pain syndrome 5 Tacho Arzola. [address], [place], [place], [address] , [place]. tel:[phone] OFFICE/OUTPA TIENT VISIT, [facility], [address], [place], [place], [address], [place] tel:[phone] [facility] HLP (chief complaint) hypothyroi dism1 (chief complaint) pain (chief complaint) skin (chief complaint) HypothyroidismChron ic pain syndromeMixed hyperlipidemiaCellu litis of right upper limb 4 Tacho Arzola. [address], [place], [place], [address] , [place]. tel:[phone] OFFICE/OUTPA TIENT VISIT, [facility], [address] [place], [place], [address], [place] tel:[phone] [facility] pain1 (chief complaint) crohn1 (chief complaint) polyp1 (chief complaint) Chronic pain syndromePolyp of colonCrohn's disease of large intestine without complicationsMixed hyperlipidemia 4 Tacho Arzola. [address], [place], [address] , [place]. tel:[phone] OFFICE/OUTPA TIENT VISIT, [facility], [address] [place], [place], [address], [place] tel:[phone] [facility] pain (chief complaint) HTN (chief complaint) proteinuri a1 (chief complaint) RLS (chief complaint) Chronic pain syndromeEssential (primary) hypertensionRestles s legs syndromeProteinuria 4 Tacho Arzola. [address], [address] , [place]. tel:[phone] OFFICE/OUTPA TIENT VISIT, [facility], [address] [place], [address], [place] tel:[phone] [facility] pain (chief complaint) foot pain1 (chief complaint) crohn disease1 (chief complaint) tobacco1 (chief complaint) Chronic pain syndromeTobacco useCrohn's disease of large intestine without complicationsPain in right foot 4 Tacho Arzola. [address], [address] , [place]. tel:[phone] OFFICE/OUTPA TIENT VISIT, [facility], [address] [place], [address], [place] tel:[phone] [facility] pain (chief complaint) GERD1 (chief complaint) HTN (chief complaint) Chronic pain syndromeGastro-esop hageal reflux disease without esophagitisEssentia l (primary) hypertensionTobacco use 4 Tacho Arzola. [address], [place], [address] , [place]. tel:[phone] OFFICE/OUTPA TIENT VISIT, [facility], [address], [place], [place], [address], [place] tel:[phone] [facility] pain (chief complaint) Chronic pain syndrome 4 Tacho Arzola. [address], [address], [place], [place], [address] , [place]. tel:[phone] OFFICE/OUTPA TIENT VISIT, [facility], [address], [place], [place], [address], [place] tel:[phone] [facility] pain (chief complaint) Chronic pain syndrome 4 Ttius Dariusz. [address], [address], [place], [place], [address] , [place]. tel:[phone] OFFICE/OUTPA TIENT VISIT, [facility], [address], [place], [place], [address], [place] tel:[phone] [facility] pain (chief complaint) GERD1 (chief complaint) crohn disease1 (chief complaint) Chronic pain syndromeCrohn's disease of large intestine without complicationsPolyp of colonGERD w/o esophagitis 4 Tacho Arzola. [address], [place], [place], [address] , [place]. tel:[phone] OFFICE/OUTPA TIENT VISIT, [facility], [address], [place], [place], [address], [place] tel:[phone] [facility] pain (chief complaint) crohn (chief complaint) Chronic pain syndromeCrohn's disease of large intestine without complications 4 Tacho Arzola. [address], [place], [place], [address] , [place]. tel:[phone] OFFICE/OUTPA TIENT VISIT, [facility], [address], [place], [place], [address], [place] tel:[phone] [facility] pain (chief complaint) crohn1 (chief complaint) cough1 (chief complaint) HTN (chief complaint) Chronic pain syndromeCrohn's disease of large intestine without complicationsGastro -esophageal reflux disease without esophagitisAcute bronchitisEssential (primary) hypertension 4 Tacho Arzola. [address], [place], [place], [address] , [place]. tel:[phone] OFFICE/OUTPA TIENT VISIT, [facility], [address], [place], [place], [address], [place] tel:[phone] [facility] pain (chief complaint) muscle1 (chief complaint) RLS (chief complaint) crohn (chief complaint) Chronic pain syndromeRestless legs syndromeCrohn's disease of large intestine without complicationsGERD w/o esophagitisOther muscle spasm 4 Tacho Arzola. [address], [place], [place], [address] , [place]. tel:[phone] OFFICE/OUTPA TIENT VISIT, [facility], [address], [address], [place] tel:[phone] [facility] pain (chief complaint) Chronic pain syndrome 3 Tacho Arzola. [address], [place], [place], [address] , [place]. tel:[phone] OFFICE/OUTPA TIENT VISIT, [facility], [address], [place], [place], [address], [place] tel:[phone] [facility] pain (chief complaint) hematuria1 (chief complaint) Asymptomatic microscopic hematuriaChronic pain syndrome 3 Tacho Arzola. [address], [place], [place], [address] , [place]. tel:[phone] OFFICE/OUTPA TIENT VISIT, [facility], [address], [place], [place], [address], [place] tel:[phone] [facility] hematuria1 (chief complaint) proteinuri a1 (chief complaint) pain (chief complaint) Asymptomatic microscopic hematuriaProteinuri aChronic pain syndromeEssential (primary) hypertension 3 Tacho Arzola. [address], [place], [place], [address] , [place]. tel:[phone] OFFICE/OUTPA TIENT VISIT, [facility], [address], [place], [address], [place] tel:[phone] [facility] pain (chief complaint) thyroid1 (chief complaint) hematuria1 (chief complaint) Ankylosing spondylitis of multiple sites in spineAsymptomatic microscopic hematuriaHypothyroi dism 3 Tacho Arzola. [address], [place], [place], [address] , [place]. tel:[phone] OFFICE/OUTPA TIENT VISIT, [facility], [address], [place], [address], [place] tel:[phone] [facility] pain (chief complaint) CAD (chief complaint) thyroid (chief complaint) hematuria1 (chief complaint) Asymptomatic microscopic hematuriaAnkylosing spondylitis of multiple sites in spineHypothyroidism Coronary artery disease of [place] coronary artery without angina pectoris 3 Tacho Arzola. [address], [place], [place], [address] , [place]. tel:[phone] OFFICE/OUTPA TIENT VISIT, [facility], [address] [place], [address], [place] tel:[phone] [facility] pain (chief complaint) HLP (chief complaint) thyroid1 (chief complaint) iron1 (chief complaint) hematuria1 (chief complaint) ProteinuriaAsymptom atic microscopic hematuriaHypothyroi dismDisorder of iron metabolism, unspecifiedMixed hyperlipidemiaHyper glycemiaAnkylosing spondylitis of multiple sites in spineTobacco use 3 Tacho Arzola. [address], [place], [place], [address] , [place]. tel:[phone] OFFICE/OUTPA TIENT VISIT, [facility], [address], [place], [place], [address], [place] tel:[phone] [facility] pain (chief complaint) Chronic pain syndromeTobacco use 3 Tacho Arzola. [address], [address], [place], [place], [address] , [place]. tel:[phone] OFFICE/OUTPA TIENT VISIT, [facility], [address], [place], [place], [address], [place] tel:[phone] [facility] pain (chief complaint) Chronic pain syndrome 3 Tacho Arzola. [address], [place], [place], [address] , [place]. tel:[phone] OFFICE/OUTPA TIENT VISIT, [facility], [address], [place], [place], [address], [place] tel:[phone] [facility] pain (chief complaint) tobacco1 (chief complaint) Ankylosing spondylitis of multiple sites in spineTobacco use 3 Tacho Arzola. [address], [place], [place], [address] , [place]. tel:[phone] OFFICE/OUTPA TIENT VISIT, [facility], [address], [place], [place], [address], [place] tel:[phone] [facility] pain (chief complaint) HTN (chief complaint) Essential (primary) hypertensionAnkylos ing spondylitis of multiple sites in spine 3 Tacho Arzola. [address], [place], [place], [address] , [place]. tel:[phone] PREV VISIT, EST, AGE 40-64 [facility], [address], [place], [place], [address], [place] tel:[phone] [facility] physical (chief complaint) Encounter for general adult medical exam w abnormal findingsRestless legs syndromeAnkylosing spondylitis of multiple sites in spineCrohn's disease of large intestine without complicationsCorona ry artery disease of [place] coronary artery without angina pectorisEssential (primary) hypertensionProtein uriaGERD w/o esophagitis 3 Tacho Arzola. [address], [place], [address] , [place]. tel:[phone] OFFICE/OUTPA TIENT VISIT, [facility], [address], [place], [place], [address], [place] tel:[phone] [facility] pain (chief complaint) Ankylosing spondylitis of multiple sites in spineChronic pain syndrome 3 Tacho Arzola. [address], [place], [place], [address] , [place]. tel:[phone] OFFICE/OUTPA TIENT VISIT, [facility], [address], [place], [place], [address], [place] tel:[phone] [facility] pain (chief complaint) Chronic pain syndrome 2 Tacho Arzola. [address], [address], [place], [place], [address] , [place]. tel:[phone] OFFICE/OUTPA TIENT VISIT, [facility], [address], [place], [place], [address], [place] tel:[phone] [facility] pain (chief complaint) RLS (chief complaint) Chronic pain syndromeRestless legs syndrome 2 Tacho Arzola. [address], [place], [place], [address] , [place]. tel:[phone] OFFICE/OUTPA TIENT VISIT, [facility], [address], [place], [place], [address], [place] tel:[phone] [facility] pain (chief complaint) Chronic pain syndrome 2 Titus Dariusz. [address], [place], [place], [address] , [place]. tel:[phone] OFFICE/OUTPA TIENT VISIT, [facility], [address], [place], [place], [address], [place] tel:[phone] [facility] pain (chief complaint) RLS1 (chief complaint) Chronic pain syndromeRestless Legs Syndrome May- 2 Titus Dariusz. [address], [place], [place], [address] , [place]. tel:[phone] OFFICE/OUTPA TIENT VISIT, [facility], [address], [place], [place], [address], [place] tel:[phone] [facility] pain (chief complaint) Ankylosing spondylitis of multiple sites in spine May- 2 Titus Dariusz. [address], [place], [place], [address] , [place]. tel:[phone] OFFICE/OUTPA TIENT VISIT, [facility], [address], [place], [place], [address], [place] tel:[phone] [facility] pain (chief complaint) Chronic pain syndrome 2 Titus Dariusz. [address], [place], [place], [address] , [place]. tel:[phone] OFFICE/OUTPA TIENT VISIT, [facility], [address], [place], [address], [place] tel:[phone] [facility] pain (chief complaint) HTN (chief complaint) Essential (primary) hypertensionAnkylos ing spondylitis of multiple sites in spine 2 Titus Dariusz. [address], [place], [place], [address] , [place]. tel:[phone] OFFICE/OUTPA TIENT VISIT, [facility], [address], [place], [address], [place] tel:[phone] [facility] pain (chief complaint) (chief complaint) tailbone1 (chief complaint) Ankylosing spondylitis of multiple sites in spineCoccygodynia 2 Tacho Arzola. [address], [place], [place], [address] , [place]. tel:[phone] OFFICE/OUTPA TIENT VISIT, [facility], [address], [place], [address], [place] tel:[phone] [facility] tailbone pain1 (chief complaint) (chief complaint) tobacco1 (chief complaint) CoccygodyniaAnkylos ing spondylitis of multiple sites in spineTobacco use 2 Tacho Arzola. [address], [place], [place], [address] , [place]. tel:[phone] OFFICE/OUTPA TIENT VISIT, [facility], [address], [place], [place], [address], [place] tel:[phone] [facility] pain (chief complaint) RLS (chief complaint) HTN (chief complaint) BPH1 (chief complaint) weight gain1 (chief complaint) Chronic pain syndromeRestless legs syndromeAbnormal weight gainBPH w/o lower urinary tract symptomsEssential (primary) hypertension 2 Tacho Arzola. [address], [place], [place], [address] , [place]. tel:[phone] OFFICE/OUTPA TIENT VISIT, [facility], [address], [place], [place], [address], [place] tel:[phone] [facility] pain (chief complaint) tobacco1 (chief complaint) Chronic pain syndromeTobacco use 2 Tacho Arzola. [address], [place], [place], [address] , [place]. tel:[phone] OFFICE/OUTPA TIENT VISIT, [facility], [address], [place], [address], [place] tel:[phone] [facility] pain (chief complaint) Chronic pain syndromeAnkylosing spondylitis of multiple sites in spine 2 Tacho Arzola. [address], [place], [place], [address] , [place]. tel:[phone] PREV VISIT, EST, AGE 40-64 [facility], [address], [place], [place], [address], [place] tel:[phone] [facility] physical (chief complaint) Encounter for general adult medical exam w abnormal findingsLeukopeniaH yperglycemiaProtein uriaRestless legs syndromeAnkylosing spondylitis of multiple sites in spineCrohn's disease of large intestine without complicationsCorona ry artery disease of [place] coronary artery without angina pectoris 2 Tacho Arzola. [address], [place], [address] , [place]. tel:[phone] OFFICE/OUTPA TIENT VISIT, EST [facility], [address], [place], [place], [address], [place] tel:[phone] [facility] pain (chief complaint) crohn disease1 (chief complaint) Crohn's disease of large intestine without complicationsAnkylo sing spondylitis of multiple sites in spine 1 Tacho Arzola. [address], [place], [place], [address] , [place]. tel:[phone] OFFICE/OUTPA TIENT VISIT, EST [facility], [address], [place], [address], [place] [phone] [facility] pain (chief complaint) Ankylosing spondylitis of multiple sites in spine 1 Tacho Arzola. [address], [place], [place], [address] , [place]. tel:[phone] OFFICE/OUTPA TIENT VISIT, EST [facility], [address], [place], [address], [place] tel:[phone] [facility] pain (chief complaint) HLP (chief complaint) RLS (chief complaint) crohn disease1 (chief complaint) Restless legs syndromeAnkylosing spondylitis of multiple sites in spineHyperlipidemia BPH w/o lower urinary tract symptomCrohn's disease of large intestine without complications 1 Tacho Mcmahon [address], [place], [place], [address] , [place]. tel:[phone] OFFICE/OUTPA TIENT VISIT, [facility], [address], [place], [place], [address], [place] tel:[phone] [facility] pain (chief complaint) Ankylosing spondylitis of multiple sites in spine 1 Tacho Mcmahon [address], [place], [place], [address] , [place]. tel:[phone] OFFICE/OUTPA TIENT VISIT, [facility], [address], [place], [place], [address], [place] tel:[phone] [facility] pain (chief complaint) crohn disease1 (chief complaint) Ankylosing spondylitis of multiple sites in spineCrohn's disease of large intestine without complications 1 Tacho Mcmahon [address], [place], [place], [address] , [place]. tel:[phone] OFFICE/OUTPA TIENT VISIT, [facility], [address], [place], [place], [address], [place] tel:[phone] [facility] pain (chief complaint) thumb numbness1 (chief complaint) HTN (chief complaint) Ankylosing spondylitis of multiple sites in spineEssential (primary) hypertensionRadial styloid tenosynovitis [de Quervain]Crohn's disease of large intestine without complications 1 Tacho Mcmahon [address], [address], [place], [place], [address] , [place]. tel:[phone] OFFICE/OUTPA TIENT VISIT, [facility], [address], [place], [place], [address], [place] tel:[phone] [facility] pain (chief complaint) Ankylosing spondylitis of multiple sites in spine 1 Tacho Mcmahon [address], [place], [place], [address] , [place]. tel:[phone] OFFICE/OUTPA TIENT VISIT, [facility], [address] [place], [address], tel:[phone] [facility] pain (chief complaint) crohn dsiease1 (chief complaint) CAD (chief complaint) Ankylosing spondylitis of multiple sites in spineCrohn's disease of large intestine without complicationsHyperl ipidemiaCoronary artery disease of [place] coronary artery without angina pectoris 1 Tacho Mcmahon [address], [place], [place], [address] , . tel:[phone] OFFICE/OUTPA TIENT VISIT, [facility], [address] [place], [address], [place] tel:[phone] [facility] pain (chief complaint) Ankylosing spondylitis of multiple sites in spineChronic pain syndrome 1 Tacho Mcmahon [address], [place], [place], [address] , [place]. tel:[phone] OFFICE/OUTPA TIENT VISIT, [facility], [address], [address], [place] tel:[phone] [facility] pain (chief complaint) tobacco1 (chief complaint) Chronic pain syndromeTobacco use 1 Tacho Mcmahon [address], [address] , [place]. tel:[phone] OFFICE/OUTPA TIENT VISIT, [facility], [address] [place], [place], [address], [place] tel:[phone] [facility] pain (chief complaint) RLS (chief complaint) HTN (chief complaint) tobacco1 (chief complaint) Chronic pain syndromeRestless legs syndromeEssential (primary) hypertensionTobacco use 1 Tacho Arzola. [address], [place], [place], [address] , [place]. tel:[phone] OFFICE/OUTPA TIENT VISIT, [facility], [address], [place], [place], [address], [place] tel:[phone] [facility] crohn disease1 (chief complaint) Crohn's disease of large intestine without complications 1 Tacho Arzola. [address], [place], [place], [address] , [place]. tel:[phone] OFFICE/OUTPA TIENT VISIT, [facility], [address], [place], [place], [address], [place] tel:[phone] [facility] pain (chief complaint) crohn disease1 (chief complaint) Ankylosing spondylitis of multiple sites in spineCrohn's disease of large intestine without complications 1 Tacho Arzola. [address], [place], [place], [address] , [place]. tel:[phone] OFFICE/OUTPA TIENT VISIT, [facility], [address], [place], [place], [address], [place] tel:[phone] [facility] pain (chief complaint) crohn disease1 (chief complaint) Ankylosing spondylitis of multiple sites in spineCrohn's disease of large intestine without complications 0 Tacho Arzola. [address], [place], [place], [address] , [place]. tel:[phone] OFFICE/OUTPA TIENT VISIT, [facility], [address], [place], [place], [address], [place] tel:[phone] [facility] pain (chief complaint) Ankylosing spondylitis of multiple sites in spineChronic pain syndrome 0 Tacho Arzola. [address], [place], [place], [address] , [place]. tel:[phone] OFFICE/OUTPA TIENT VISIT, [facility], [address], [place], [place], [address], [place] tel:[phone] [facility] physicxal (chief complaint) Encounter for general adult medical exam w abnormal findingsFistula of intestineAnkylosing spondylitis of multiple sites in spineRestless legs syndrome 0 Tacho Arzola. [address], [place], [place], [address] , [place]. tel:[phone] OFFICE/OUTPA TIENT VISIT, [facility], [address], [place], [place], [address], [place] tel:[phone] [facility] pain (chief complaint) crohn disease1 (chief complaint) Ankylosing spondylitis of multiple sites in spineLymphadenopath yCrohn's disease of large intestine without complicationsFistul a of intestine 0 Tacho Mcmahon [address], [address], [place], [place], [address] , [place]. [phone] OFFICE/OUTPA TIENT VISIT, [facility], [address], [place], [place], [address], [place] tel:[phone] [facility] pain1 (chief complaint) lymph node1 (chief complaint) HTN (chief complaint) RLS1 (chief complaint) LymphadenopathyAbno rmal weight lossEssential (primary) hypertensionAnkylos ing spondylitis of multiple sites in spineUrinary tract infection 0 Tacho Mcmahon [address], [place], [place], [address] , [place]. tel:[phone] OFFICE/OUTPA TIENT VISIT, [facility], [address], [place], [place], [address], [place] tel:[phone] [facility] pain (chief complaint) lymph (chief complaint) BPH (chief complaint) Essential thrombocytosisLymph adenopathyBPH w/o lower urinary tract symptomAnkylosing spondylitis of multiple sites in spine 0 Tacho Arzola. [address], [place], [place], [address] , [place]. tel:[phone] OFFICE/OUTPA TIENT VISIT, [facility], [address], [place], [place], [address], [place] tel:[phone] [facility] UTI1 (chief complaint) platelet1 (chief complaint) pain (chief complaint) Ankylosing spondylitis of multiple sites in spineEssential thrombocytosisUrina ry tract infectionLymphadeno wilberto Feb- 0 Tacho Arzola. [address], [place], [place], [address] , [place]. tel:[phone] [facility], [address], [place], [place], [address], [place] tel:[phone] [facility] BPH w/o lower urinary tract symptom 0 Tacho Arzola. [address], [place], [place], [address] , [place]. tel:[phone] OFFICE/OUTPA TIENT VISIT, [facility], [address], [place], [place], [address], [place] tel:[phone] [facility] pain (chief complaint) UTI1 (chief complaint) crohn disease1 (chief complaint) platelet1 (chief complaint) Essential thrombocytosisUrina ry tract infectionAnkylosing spondylitis of multiple sites in spineCrohn's disease of large intestine without complications 0 Tacho Arzola. [address], [place], [place], [address] , [place]. tel:[phone] OFFICE/OUTPA TIENT VISIT, [facility], [address], [place], [place], [address], [place] tel:[phone] [facility] pain (chief complaint) colon mass1 (chief complaint) UTI1 (chief complaint) lymphadeno wilberto (chief complaint) Urinary tract infectionNeoplasm of uncertain behavior of colonAnkylosing spondylitis of multiple sites in spineLymphadenopath yAbnormal weight loss 0 Tacho Arzola. [address], [place], [place], [address] , [place]. tel:[phone] OFFICE/OUTPA TIENT VISIT, [facility], [address], [place], [place], [address], [place] tel:[phone] [facility] colon mass1 (chief complaint) UTI1 (chief complaint) Urinary tract infectionNeoplasm of uncertain behavior of colonLymphadenopath y Nov-3 - 0 Titus Dariusz. [address], [address], [place], [place], [address] , [place]. tel:[phone] OFFICE/OUTPA TIENT VISIT, [facility], [address], [place], [place], [address], [place] tel:[phone] [facility] UTI1 (chief complaint) colon1 (chief complaint) chronic pain1 (chief complaint) Urinary tract infectionAnkylosing spondylitis of multiple sites in spineNeoplasm of uncertain behavior of colon Nov-2 0 Titus Dariusz. [address], [place], [place], [address] , [place]. tel:[phone] OFFICE/OUTPA TIENT VISIT, [facility], [address], [place], [place], [address], [place] tel:[phone] [facility] UTI1 (chief complaint) pain1 (chief complaint) anemia1 (chief complaint) GERD1 (chief complaint) AnemiaAnkylosing spondylitis of multiple sites in spineUrinary tract infectionGERD w/o esophagitisTobacco useAbnormal weight loss Fe-2 0 Titus Dariusz. [address], [place], [place], [address] , [place]. tel:[phone] OFFICE/OUTPA TIENT VISIT, [facility], [address], [place], [place], [address], [place] tel:[phone] [facility] pain1 (chief complaint) UTI1 (chief complaint) anemia1 (chief complaint) lung CA (chief complaint) AnemiaHematuriaAnky losing spondylitis of multiple sites in spineUrinary tract infectionTobacco use 0 Tacho Arzola. [address], [place], [place], [address] , [place]. tel:[phone] Referring Provider: Matias Lock[address], [place], [place], [address]. tel:[phone] OFFICE/OUTPA TIENT VISIT, [facility], [address], [place], [address], [place] tel:[phone] [facility] chronic pain1 (chief complaint) RLS (chief complaint) Ankylosing spondylitis of multiple sites in spineRestless legs syndrome 9 Tacho Mcmahon [address], [address], [place], [place], [address] , [place]. tel:[phone] Referring Provider: Matias Lock[address], [place], [place], [address]. tel:[phone] OFFICE/OUTPA TIENT VISIT, [facility], [address], [place], [place], [address], [place] tel:[phone] [facility] hematuria1 (chief complaint) chronic pain1 (chief complaint) HematuriaAnkylosing spondylitis of multiple sites in spine 9 Tacho Arzola. [address], [place], [place], [address] , [place]. tel:[phone] OFFICE/OUTPA TIENT VISIT, [facility], [address], [place], [place], [address], [place] tel:[phone] [facility] UTI1 (chief complaint) GERD1 (chief complaint) chronic pain (chief complaint) HLP (chief complaint) Gastro-esophageal reflux disease without esophagitisAnkylosi ng spondylitis of multiple sites in spineHyperlipidemia Hematuria 9 Tacho Mcmahon [address], [place], [place], [address] , [place]. tel:[phone] Referring Provider: Dariusz Titus, [address], [place], [place], [address]. tel:[phone] OFFICE/OUTPA TIENT VISIT, [facility], [address], [place], [place], [address], [place] tel:[phone] [facility] chronic pain1 (chief complaint) stomach upset (chief complaint) Crohn's disease of large intestine without complicationsAnkylo sing spondylitis of multiple sites in spineGERD w/o esophagitis 9 Tacho Arzola. [address], [place], [place], [address] , [place]. tel:[phone] Referring Provider: [address], [place], [place], [address]. tel:[phone] OFFICE/OUTPA TIENT VISIT, [facility], [address], [place], [place], [address], [place] tel:[phone] [facility] chronic pain1 (chief complaint) crohn disesase1 (chief complaint) Crohn's disease of large intestine without complicationsAnkylo sing spondylitis of multiple sites in spine 9 Tacho Arzola. [address], [place], [place], [address] , [place]. tel:[phone] OFFICE/OUTPA TIENT VISIT, [facility], [address], [place], [place], [address], [place] tel:[phone] [facility] back pain1 (chief complaint) weight loss1 (chief complaint) Abnormal weight lossAnkylosing spondylitis of multiple sites in spineEarly satiety 9 Tacho Arzola. [address], [place], [place], [address] , [place]. tel:[phone] Referring Provider: Matias Lockett [address], [place], [place], [address]. tel:[phone] OFFICE/OUTPA TIENT VISIT, [facility], [address], [place], [place], [address], [place] tel:[phone] [facility] (chief complaint) RLS (chief complaint) HTN (chief complaint) crohn (chief complaint) Crohn's disease of large intestine without complicationsAnkylo sing spondylitis of multiple sites in spineEssential (primary) hypertensionRestles s legs syndrome 9 Tacoh Arzola. [address], [place], [place], [address] , [place]. tel:[phone] Referring Provider: Matias Lockett [address], [place], [place], [address]. tel:[phone] OFFICE/OUTPA TIENT VISIT, [facility], [address], [place], [place], [address], [place] tel:[phone] [facility] SMO (chief complaint) chronic pain (chief complaint) HTN (chief complaint) Crohn's disease of large intestine without complicationsBowel obstructionAnkylosi ng spondylitis of multiple sites in spineEssential (primary) hypertension 9 Tacho Arzola. [address], [place], [place], [address] , [place]. tel:[phone] Referring Provider: Matias Lockett [address], [place], [place], [address]. tel:[phone] OFFICE/OUTPA TIENT VISIT, [facility], [address], [place], [place], [address], [place] tel:[phone] [facility] PHysical (chief complaint) Encounter for general adult medical exam w abnormal findingsCoronary artery disease of [place] coronary artery without angina pectorisAnkylosing spondylitis of multiple sites in spineUmbilical herniaGastro-esopha geal reflux disease without esophagitisEncntr for general adult medical exam w/o abnormal findings 9 Tacho Arzola. [address], [place], [place], [address] , [place]. tel:[phone] Referring Provider: Matias Lockett [address], [place], [place], [address]. tel:[phone] OFFICE/OUTPA TIENT VISIT, [facility], [address], [place], [place], [address], [place] tel:[phone] [facility] CAD (chief complaint) back pain1 (chief complaint) gynecomast ia1 (chief complaint) hernia1 (chief complaint) GynecomastiaUmbilic al herniaCoronary artery disease of [place] coronary artery without angina pectorisAnkylosing spondylitis of multiple sites in spine 9 Tacho Arzola. [address], [address], [place], [place], [address] , [place]. tel:[phone] Referring Provider: Matias Lockett [address], [place], [place], [address]. tel:[phone] OFFICE/OUTPA TIENT VISIT, [facility], [address], [place], [place], [address], [place] tel:[phone] [facility] chronic pain1 (chief complaint) restless1 (chief complaint) HLP (chief complaint) HTN (chief complaint) CAD1 (chief complaint) COPD1 (chief complaint) EmphysemaCoronary artery disease of [place] coronary artery without angina pectorisAnkylosing spondylitis of multiple sites in spineEssential (primary) hypertensionHyperli pidemiaGynecomastia 9 Tacho Arzola. [address], [place], [place], [address] , [place]. tel:[phone] Referring Provider: Matias Lockett [address], [place], [place], [address]. tel:[phone] OFFICE/OUTPA TIENT VISIT, [facility], [address], [place], [place], [address], [place] tel:[phone] [facility] (chief complaint) GERD1 (chief complaint) GERD w/o esophagitisAnkylosi ng spondylitis of multiple sites in spine 9 Tacho Arzola. [address], [place], [place], [address] , [place]. tel:[phone] Referring Provider: Matias Lockett [address], [place], [place], [address]. tel:[phone] OFFICE/OUTPA TIENT VISIT, [facility], [address], [place], [place], [address], [place] tel:[phone] [facility] lung nodule1 (chief complaint) chronic pain (chief complaint) proteinuri a1 (chief complaint) Chronic pain syndromeSolitary lung noduleProteinuria 8 Tacho Arzola. [address], [place], [place], [address] , [place]. tel:[phone] OFFICE/OUTPA TIENT VISIT, [facility], [address], [place], [place], [address], [place] tel:[phone] [facility] chronic pain (chief complaint) GERD1 (chief complaint) GERD w/o esophagitisChronic pain syndrome Tacho Arzola. [address], [place], [place], [address] , [place]. tel:[phone] Referring Provider: Matias Lockett [address], [place], [place], [address]. tel:[phone] OFFICE/OUTPA TIENT VISIT, [facility], [address], [place], [place], [address], [place] tel:[phone] [facility] pain1 (chief complaint) GERD1 (chief complaint) skin nodule1 (chief complaint) Gastro-esophageal reflux disease without esophagitisChronic pain syndromeFollicular cyst of skin 8 Tacho Arzola. [address], [place], [place], [address] , [place]. tel:[phone] Referring Provider: Matias Lockett [address], [place], [place], [address]. tel:[phone] OFFICE/OUTPA TIENT VISIT, [facility], [address], [place], [place], [address], [place] tel:[phone] [facility] pain1 (chief complaint) HLP (chief complaint) GERD1 (chief complaint) pain1 (chief complaint) HyperlipidemiaGERD w/o esophagitisAnkylosi ng spondylitis of multiple sites in spineMuscle spasm of back 8 Tacho Arzola. [address], [place], [place], [address] , [place]. tel:[phone] Referring Provider: Matias Lockett [address], [place], [place], [address]. tel:[phone] OFFICE/OUTPA TIENT VISIT, [facility], [address], [place], [place], [address], [place] tel:[phone] [facility] chronic pain (chief complaint) proteinuri a1 (chief complaint) GERD1 (chief complaint) HLP (chief complaint) ProteinuriaGastro-e sophageal reflux disease without esophagitisAnkylosi ng spondylitis of multiple sites in spineHyperlipidemia BPH w/o lower urinary tract symptom 8 Tacho Mcmahon [address], [place], [place], [address] , [place]. tel:[phone] Referring Provider: Dariusz Titus [address], [place], [place], [address]. tel:[phone] OFFICE/OUTPA TIENT VISIT, [facility], [address], [place], [address], [place] tel:[phone] [facility] chronic pain1 (chief complaint) colon polyp1 (chief complaint) GERD1 (chief complaint) proteinuri a1 (chief complaint) ProteinuriaChronic pain syndromeGERD w/o esophagitisPolyp of colon 8 Tacho Mcmahon [address], [place], [place], [address] , [place]. tel:[phone] OFFICE/OUTPA TIENT VISIT, [facility], [address], [place], [place], [address], [place] tel:[phone] [facility] HTN (chief complaint) restless leg (chief complaint) (chief complaint) DUI (chief complaint) Essential (primary) hypertensionAnkylos ing spondylitis of multiple sites in spineRestless legs syndromeProteinuria 8 Tacho Arzola. [address], [place], [place], [address] , [place]. tel:[phone] Referring Provider: Matias Lockett [address], [place], [place], [address]. tel:[phone] OFFICE/OUTPA TIENT VISIT, [facility], [address], [place], [place], [address], [place] tel:[phone] [facility] chronic pain (chief complaint) Chronic pain syndrome 8 Tacho Arzola. [address], [place], [place], [address] , [place]. tel:[phone] Referring Provider: Matias Lockett [address], [place], [place], [address]. tel:[phone] OFFICE/OUTPA TIENT VISIT, [facility], [address], [place], [address], [place] tel:[phone] [facility] chronic pain (chief complaint) HTN (chief complaint) Ankylosing spondylitis of multiple sites in spineEssential (primary) hypertension 6 8 Tacho Arzola. [address], [place], [place], [address] , [place]. tel:[phone] OFFICE/OUTPA TIENT VISIT, [facility], [address], [place], [place], [address], [place] tel:[phone] [facility] chronic pain (chief complaint) Ankylosing spondylitis of multiple sites in spineProteinuria 8201 8 Tacho Arzola. [address], [place], [place], [address] , [place]. tel:[phone] Referring Provider: Matias Lockett [address], [place], [place], [address]. tel:[phone] OFFICE/OUTPA TIENT VISIT, [facility], [address], [place], [place], [address], [place] tel:[phone] [facility] Physicla (chief complaint) Encounter for general adult medical exam w abnormal findingsRestless legs syndromeChronic pain syndromeOccult blood in stool 8 Tacho Arzola. [address], [place], [place], [address] , [place]. tel:[phone] Referring Provider: Matias Lockett [address], [place], [place], [address]. tel:[phone] OFFICE/OUTPA TIENT VISIT, [facility], [address], [place], [place], [address], [place] tel:[phone] [facility] hemangioma 1 (chief complaint) (chief complaint) Chronic pain syndromeOccult blood in stool 8 Tacho Arzola. [address], [place], [place], [address] , [place]. [phone] Referring Provider: Matias Lockett [address], [place], [place], [address]. tel:[phone] OFFICE/OUTPA TIENT VISIT, [facility], [address], [place], [place], [address], [place] tel:[phone] [facility] (chief complaint) lung nodule (chief complaint) T spine1 (chief complaint) fecal globin1 (chief complaint) Solitary lung noduleOccult blood in stoolPain in thoracic spine 8 Tacho Arzola. [address], [place], [place], [address] , [place]. tel:[phone] Referring Provider: Matias Lockett [address], [place], [place], [address]. tel:[phone] OFFICE/OUTPA TIENT VISIT, [facility], [address], [place], [place], [address], [place] tel:[phone] [facility] (chief complaint) T spine1 (chief complaint) colon CA screening1 (chief complaint) Ankylosing spondylitis of multiple sites in spinePain in thoracic spineOccult blood in stool 8 Tacho Mcmahon [address], [place], [place], [address] , [place]. tel:[phone] Referring Provider: Matias Lockett [address], [place], [place], [address]. tel:[phone] OFFICE/OUTPA TIENT VISIT, EST [facility], [address], [place], [place], [address], [place] tel:[phone] [facility] chest noudle1 (chief complaint) chronic pain1 (chief complaint) tspine1 (chief complaint) restless (chief complaint) Restless Legs SyndromeAnkylosing spondylitis of multiple sites in spineSolitary lung noduleChronic pain syndrome 7 Tacho Mcmahon [address], [place], [place], [address] , [place]. tel:[phone] Referring Provider: Matias Lockett [address], [place], [place], [address]. tel:[phone] OFFICE/OUTPA TIENT VISIT, [facility], [address], [place], [place], [address], [place] tel:[phone] [facility] chronic pain1 (chief complaint) Tspine (chief complaint) Ankylosing spondylitis of lumbosacral regionEssential (primary) hypertension [address], [place], [place], [address] , [place]. tel:[phone] Referring Provider: Matias Lockett [address], [place], [place], [address]. tel:[phone] OFFICE/OUTPA TIENT VISIT, [facility], [address], [place], [place], [address], [place] tel:[phone] [facility] proteinuri a1 (chief complaint) restlessle g (chief complaint) chronic pain (chief complaint) T spine1 (chief complaint) ProteinuriaRestless Legs SyndromeAnkylosing spondylitis of lumbosacral regionPain in thoracic spine 7 Tacho Arzola. [address], [place], [place], [address] , [place]. tel:[phone] Referring Provider: Matias Lockett [address], [place], [place], [address]. tel:[phone] OFFICE/OUTPA TIENT VISIT, [facility], [address], [place], [place], [address], [place] tel:[phone] [facility] (chief complaint) Ankylosing spondylitis of multiple sites in spine 0 7 Tacho Arzola. [address], [place], [place], [address] , [place]. [phone] Referring Provider: Matias Lockett [address], [place], [place], [address]. tel:[phone] OFFICE/OUTPA TIENT VISIT, [facility], [address], [place], [place], [address], [place] tel:[phone] [facility] lung nodule1 (chief complaint) T spine (chief complaint) proteinuri a1 (chief complaint) Ankylosing spondylitis of multiple sites in spineProteinuriaSol itary lung nodule 7 Tacho Mcmahon [address], [place], [place], [address] , [place]. [phone] Referring Provider: Matias Lockett [address], [place], [place], [address]. tel:[phone] OFFICE/OUTPA TIENT VISIT, [facility], [address], [place], [place], [address], [place] tel:[phone] [facility] GERD1 (chief complaint) chronic pain (chief complaint) Ankylosing spondylitis of multiple sites in spineGERD w/o esophagitis 7 Tacho Mcmahon [address], [place], [place], [address] , [place]. tel:[phone] Referring Provider: Matias Lockett [address], [place], [place], [address]. tel:[phone] OFFICE/OUTPA TIENT VISIT, [facility], [address], [place], [place], [address], [place] tel:[phone] [facility] (chief complaint) HLP (chief complaint) hyperglyce mia1 (chief complaint) restless leg (chief complaint) Ankylosing spondylitis of lumbosacral regionRestless Legs SyndromeHyperglycem iaHyperlipidemia 7 Tacho Arzola. [address], [place], [place], [address] , [place]. [phone] Referring Provider: Matias Lockett [address], [place], [place], [address]. tel:[phone] OFFICE/OUTPA TIENT VISIT, [facility], [address], [place], [place], [address], [place] tel:[phone] [facility] back pain1 (chief complaint) GERD1 (chief complaint) HTN (chief complaint) restless leg (chief complaint) Ankylosing spondylitis of multiple sites in spineRestless Legs SyndromeEssential (primary) hypertensionGERD w/o esophagitis 7 Tacho Mcmahon [address], [place], [address] , [place]. tel:[phone] Referring Provider: Matias Lockett [address], [place], [address]. tel:[phone] OFFICE/OUTPA TIENT VISIT, [facility], [address], [place], [address], [place] tel:[phone] [facility] (chief complaint) proteinuri a (chief complaint) tobacco1 (chief complaint) Ankylosing spondylitis of multiple sites in spineProteinuriaTob acco useEncounter for screening for other viral diseases 0 7 Tacho Mcmahon [address], [place], [address] , [place]. [phone] Referring Provider: Dariusz Titus, [address], [place], [place], [address]. tel:[phone] OFFICE/OUTPA TIENT VISIT, [facility], [address], [place], [place], [address], [place] tel:[phone] [facility] (chief complaint) restless leg (chief complaint) bloating (chief complaint) sleep (chief complaint) Sleep disorderIrritable bowel syndromeRestless Legs SyndromeChronic pain syndrome 7 Tacho Arzola. [address], [place], [place], [address] , [place]. tel:[phone] Referring Provider: Matias Lockett [address], [place], [place], [address]. tel:[phone] OFFICE/OUTPA TIENT VISIT, [facility], [address], [place], [place], [address], [place] tel:[phone] [facility] GERD1 (chief complaint) chronic pain1 (chief complaint) IBS1 (chief complaint) cough1 (chief complaint) Ankylosing spondylitis of multiple sites in spineGERD w/o esophagitisChronic pain syndromeAcute bronchitis, unspecified 7 Tacho Arzola. [address], [place], [place], [address] , [place]. tel:[phone] Referring Provider: Matias Lockett [address], [place], [place], [address]. tel:[phone] OFFICE/OUTPA TIENT VISIT, [facility], [address], [place], [place], [address], [place] tel:[phone] [facility] Medicine cough1 (chief complaint) Acute bronchitis, unspecified 7 Tacho Arzola. [address], [place], [place], [address] , [place]. tel:[phone] Referring Provider: Matias Lockett [address], [place], [place], [address]. tel:[phone] OFFICE/OUTPA TIENT VISIT, [facility], [address], [place], [address], [place] tel:[phone] [facility] chronic pain1 (chief complaint) GERD1 (chief complaint) IBS (chief complaint) IBS1 (chief complaint) sleep (chief complaint) Irritable bowel syndromeAnkylosing spondylitis of multiple sites in spineGERD w/o esophagitisRestless legs syndrome 7 Tacho Mcmahon [address], [place], [place], [address] , [place]. tel:[phone] Referring Provider: Matias Lockett [address], [place], [place], [address]. tel:[phone] OFFICE/OUTPA TIENT VISIT, [facility], [address], [place], [address], [place] tel:[phone] [facility] GERD1 (chief complaint) restless leg (chief complaint) (chief complaint) gas (chief complaint) Ankylosing spondylitis of multiple sites in spineRestless Legs SyndromeGERD w/o esophagitisIrritabl e bowel syndrome 6 Tacho Arzola. [address], [place], [place], [address] , [place]. tel:[phone] Referring Provider: Matias Lockett [address], [place], [place], [address]. tel:[phone] OFFICE/OUTPA TIENT VISIT, [facility], [address], [place], [address], [place] tel:[phone] [facility] GERD1 (chief complaint) rest less leg (chief complaint) (chief complaint) proteinuri a1 (chief complaint) ProteinuriaAnkylosi ng spondylitis of multiple sites in spineRestless Legs SyndromeGERD w/o esophagitis 6 Tacho Arzola. [address], [place], [place], [address] , [place]. tel:[phone] Referring Provider: Matias Lockett [address], [place], [place], [address]. tel:[phone] OFFICE/OUTPA TIENT VISIT, [facility], [address], [place], [address], [place] tel:[phone] [facility] cough (chief complaint) proteinuri a (chief complaint) chronic pain (chief complaint) CoughProteinuriaChr onic pain syndrome Jun-0 3 6 Tacho Mcmahon [address], [place], [address] , [place]. [phone] Referring Provider: Matias Lockett [address], [place], [place], [address]. tel:[phone] OFFICE/OUTPA TIENT VISIT, [facility], [address], [place], [place], [address], [place] tel:[phone] [facility] cough1 (chief complaint) (chief complaint) HTN (chief complaint) CoughEssential (primary) hypertensionAnkylos ing spondylitis of multiple sites in spine May-0 2 6 Tacho Mcmahon [address], [place], [place], [address] , [place]. [phone] Referring Provider: Matias Lockett [address], [place], [place], [address]. tel:[phone] OFFICE/OUTPA TIENT VISIT, [facility], [address], [place], [address], [place] tel:[phone] [facility] RLS1 (chief complaint) HTN (chief complaint) (chief complaint) GERD1 (chief complaint) Restless Legs SyndromeAnkylosing spondylitis of multiple sites in spineEssential (primary) hypertensionGERD w/o esophagitis Apr-0 6 Tacho Mcmahon [address], [place], [place], [address] , [place]. tel:[phone] Referring Provider: Matias Lock[address], [place], [address]. tel:[phone] OFFICE/OUTPA TIENT VISIT, [facility], [address], [place], [address], [place] tel:[phone] [facility] chronic pain1 (chief complaint) HLP (chief complaint) thyroid (chief complaint) HTN (chief complaint) HyperlipidemiaDisor tom of thyroid, unspecifiedAnkylosi ng spondylitis of lumbosacral regionEssential (primary) hypertension 0 6 Tacho Arzola. [address], [place], [place], [address] , [place]. tel:[phone] Referring Provider: Matias Lockett [address], [place], [place], [address]. tel:[phone] PREV VISIT, EST, AGE 40-64 [facility], [address], [place], [place], [address], [place] tel:[phone] [facility] PHysical (chief complaint) Encounter for general adult medical exam w abnormal findingsAnkylosing spondylitis of lumbosacral regionProteinuriaRe stless Legs Syndrome 6 Tacho Mcmahon [address], [place], [place], [address] , [place]. tel:[phone] Referring Provider: Matias Lockett, [place], [address]. tel:[phone] OFFICE/OUTPA TIENT VISIT, EST [facility], [address], [place], [place], [address], [place] tel:[phone] [facility] HTN (chief complaint) chronci pain (chief complaint) shoulder pain1 (chief complaint) restless leg (chief complaint) Ankylosing spondylitis of lumbosacral regionEssential (primary) hypertensionRestles s legs syndromePain in right upper arm 6 Tacho Mcmahon [address], [place], [place], [address] , [place]. tel:[phone] Referring Provider: Matias Lockett, [place], [address]. tel:[phone] OFFICE/OUTPA TIENT VISIT, EST [facility], [address], [place], [place], [address], [place] tel:[phone] [facility] chronic pain (chief complaint) bicep pain (chief complaint) proteinuri a (chief complaint) Ankylosing spondylitis of multiple sites in spinePain in right upper armProteinuriaEssen tial (primary) hypertension 6 Tacho Arzola. [address], [place], [place], [address] , [place]. tel:[phone] Referring Provider: Matias Lockett [address], [place], [place], [address]. tel:[phone] OFFICE/OUTPA TIENT VISIT, [facility], [address], [place], [place], [address], [place] tel:[phone] [facility] shoulder pain1 (chief complaint) proteinuri a1 (chief complaint) chronic pain (chief complaint) vitamin D (chief complaint) Ankylosing spondylitis of lumbosacral regionPain in right shoulderVitamin D deficiency, unspecifiedProteinu rubin 6 Tacho Arzola. [address], [place], [place], [address] , [place]. tel:[phone] Referring Provider: Matias Lockett [address], [place], [place], [address]. tel:[phone] OFFICE/OUTPA TIENT VISIT, [facility], [address], [place], [place], [address], [place] tel:[phone] [facility] chronic pain (chief complaint) restless leg1 (chief complaint) shoulder pain (chief complaint) proteinuri a (chief complaint) Ankylosing spondylitis of multiple sites in spineOther proteinuriaRestless Legs SyndromePain in right shoulder 6 Tacho Arzola. [address], [place], [address] , [place]. [phone] Referring Provider: Matias Lockett [address], [place], [place], [address]. tel:[phone] OFFICE/OUTPA TIENT VISIT, [facility], [address], [place], [address], [place] tel:[phone] [facility] chronic pain (chief complaint) restless leg1 (chief complaint) shoulder pain1 (chief complaint) Ankylosing spondylitis of cervical regionPain in right shoulderRestless legs syndrome 6 Tacho Arzola. [address], [place], [address] , [place]. [phone] Referring Provider: Dariusz Titus, [address], [place], [place], [address]. tel:[phone] OFFICE/OUTPA TIENT VISIT, [facility], [address], [place], [place], [address], [place] tel:[phone] [facility] chronic apin1 (chief complaint) GERD1 (chief complaint) bone density1 (chief complaint) prostate exam1 (chief complaint) Other proteinuriaAnkylosi ng spondylitis of cervical regionGERD w/o esophagitisEncounte r for screening for malignant neoplasm of prostate 5 Tacho Arzola. [address], [place], [place], [address] , [place]. [phone] Referring Provider: Matias Lockett [address], [place], [place], [address]. tel:[phone] OFFICE/OUTPA TIENT VISIT, [facility], [address], [place], [address], [place] tel:[phone] [facility] gERD1 (chief complaint) (chief complaint) proteinuri a1 (chief complaint) Ankylosing spondylitis of cervical regionOther proteinuriaGERD without esophagitis 5 Tacho Arzola. [address], [place], [place], [address] , [place]. tel:[phone] Referring Provider: Matias Lockett [address], [place], [place], [address]. tel:[phone] OFFICE/OUTPA TIENT VISIT, [facility], [address], [place], [place], [address], [place] tel:[phone] [facility] [place] (chief complaint) HLP (chief complaint) GERD (chief complaint) proteinuri a (chief complaint) Gastro-esophageal reflux disease without esophagitisAnkylosi ng spondylitis of cervical regionAnkylosing spondylitis of lumbosacral regionOther proteinuria 5 Tacho Arzola. [address], [place], [place], [address] , [place]. tel:[phone] Referring Provider: Matias Lockett [address], [place], [place], [address]. tel:[phone] OFFICE/OUTPA TIENT VISIT, EST [facility], [address], [place], [address], [place] tel:[phone] [facility] chest pain (chief complaint) leg pain (chief complaint) Leg painChest painOther and unspecified hyperlipidemiaProte inuria 5 Tacho Arzola. [address], [place], [place], [address] , [place]. tel:[phone] Referring Provider: Matias Lockett [address], [place], [place], [address]. tel:[phone] OFFICE/OUTPA TIENT VISIT, EST [facility], [address], [place], [address], [place] tel:[phone] [facility] chest pain (chief complaint) AK (chief complaint) leg pain (chief complaint) Chest painLeg painGERD - Gastro-esophageal reflux disease Feb- 5 Tacho Mcmahon [address], [place], [place], [address] , [place]. tel:[phone] Referring Provider: Matias Lockett [address], [place], [place], [address]. tel:[phone] PREV VISIT, EST, AGE 40-64 [facility], [address], [place], [place], [address], [place] tel:[phone] [facility] Physical (chief complaint) Routine Medical ExamRoutine Medical Exam 5 Tacho Arzola. [address], [place], [place], [address] , [place]. [phone] Referring Provider: Matias Lockett [address], [place], [place], [address]. tel:[phone] OFFICE/OUTPA TIENT VISIT, [facility], [address], [place], [place], [address], [place] tel:[phone] [facility] raynaud (chief complaint) back pain (chief complaint) GERD (chief complaint) Raynaud's SyndromeAnkylosing spondylitisGERD 5 Tacho Arzola. [address], [place], [place], [address] , [place]. [phone] Referring Provider: Matias Lockett [address], [place], [place], [address]. tel:[phone] OFFICE/OUTPA TIENT VISIT, [facility], [address], [place], [place], [address], [place] tel:[phone] [facility] back pain (chief complaint) GERd (chief complaint) Ankylosing spondylitisGERDLumb ago 4 Tacho Arzola. [address], [place], [address] , [place]. [phone] Referring Provider: Matias Lockett [address], [place], [place], [address]. tel:[phone] OFFICE/OUTPA TIENT VISIT, [facility], [address], [place], [place], [address], [place] tel:[phone] [facility] GERD (chief complaint) AK (chief complaint) Ankylosing spondylitisGERD 4 Tacho Arzola. [address], [place], [place], [address] , [place]. tel:[phone] Referring Provider: Matias Lockett [address], [place], [place], [address]. tel:[phone] OFFICE/OUTPA TIENT VISIT, [facility], [address], [place], [place], [address], [place] tel:[phone] [facility] AK (chief complaint) glucose (chief complaint) Ankylosing spondylitisGERDHype rglycemia 4 Tacho Arzola. [address], [place], [place], [address] , [place]. tel:[phone] Referring Provider: Dariusz Titus, [address], [place], [place], [address]. tel:[phone] OFFICE/OUTPA TIENT VISIT, [facility], [address], [place], [address], [place] tel:[phone] [facility] chronic pain (chief complaint) GERD (chief complaint) Ankylosing spondylitisGERD 4 Tacho Arzola. [address], [place], [place], [address] , [place]. tel:[phone] Referring Provider: Matias Lockett [address], [place], [place], [address]. tel:[phone] OFFICE/OUTPA TIENT VISIT, [facility], [address], [place], [place], [address], [place] tel:[phone] [facility] AK (chief complaint) back pain (chief complaint) GERD (chief complaint) Ankylosing spondylitisLumbagoG ERDFAM HX-CARDIOVAS DIS NEC 4 Tacho Arzola. [address], [place], [address] , [place]. tel:[phone] Referring Provider: Matias Lockett [address], [place], [place], [address]. tel:[phone] OFFICE/OUTPA TIENT VISIT, [facility], [address], [place], [place], [address], [place] tel:[phone] [facility] AK (chief complaint) GERD (chief complaint) family history of CAD (chief complaint) Ankylosing spondylitisGERDFAM HX-CARDIOVAS DIS NEC 4 Tacho Arzola. [address], [place], [address] , [place]. tel:[phone] Referring Provider: Matias Lockett [address], [place], [place], [address]. tel:[phone] OFFICE/OUTPA TIENT VISIT, [facility], [address], [place], [address], [place] tel:[phone] [facility] [place] (chief complaint) GERD (chief complaint) Ankylosing spondylitisGERD 4 Tacho Arzola. [address], [place], [place], [address] , [place]. tel:[phone] Referring Provider: Matias Lockett [address] [facility] [address], [place], [place], [address]. tel:[phone] OFFICE/OUTPA TIENT VISIT, [facility], [address], [place], [place], [address], [place] tel:[phone] [facility] [place] (chief complaint) abd pain (chief complaint) hyperlgycm iea (chief complaint) vitamin D (chief complaint) Ankylosing spondylitisAbdomina l PainUnspecified vitamin d deficiencyHyperglyc emia 4 Tacho Arzola. [address], [place], [place], [address] , [place]. tel:[phone] Referring Provider: Matias Lockett [address], [place], [place], [address]. tel:[phone] PREV VISIT, NEW, AGE 40-64 [facility], [address], [address], [place] tel:[phone] [facility] Physical (chief complaint) Routine Medical ExamRoutine Medical Exam 4 Tacho Arzola. [address], [place], [place], [address] , [place]. tel:[phone] Family History Family Member Type Diagnosis Age At Onset Mother Problem (finding) Alive and well Brother Problem (finding) Alive and well Father Problem (finding) Coronary artery disease 64 Mother Problem (finding) Coronary artery disease 70 Payers Payer name Insurance type Covered republican ID Basilia mayberry(s) [facility] [id number] Social History Type Description Quantity Date Captured Comments Alcohol Use Details No Caffeine Use Details Unknown Tobacco Use Status Ex-cigarette smoker 025 Smoking Status Former smoker Sex Male Vital Signs Date / Time: Height Weight BMI Pulse Rate Blood Pressure Temperature Respiratory Rate Body Surface Area Head Circumference BMI percentile Pulse Ox Inhaled Ox 9:47 AM 71.00 in 176.40 lbs 24.6 0 kg/m eter (2) 78 /min 120/80 mm[Hg] 98.0 F 16 /min Chief Complaint And Reason For Visit From encounter dated '03/07/2025 09:36'. thyroid1 (chief complaint). Description: pt has hypothyroidism. pt is on 25 mcg of synthroid and his TSH is ok Pt denies any dysphagia or neck pain. Thyroid ultrasound showed benign nodules pain (chief complaint). Description: Pt has with chronic neck and back pain and stiffness Pt takes norco PRN for pain. Pt needs refill. Pt doing ok Pt does not want any treatment for .. Pt is onskyrizi on crohn disease Pt also takes flexeril PRn. GERd (chief complaint) GERD1 (chief complaint). Description: Pt has chronic GERD Pt takes protonix and pepcid PRN and doing ok Pt needs pepcid refilled wrist pain1 (chief complaint). Description: Pt c/o intermittent pain around ulnar aspect distal left wrist area on the volar side for one month, especially if he accidently bumped on the area. Pt notices sharp pain pt denies any numbness or tingling or injury or swelling. Pt denies any injury Plan Of Treatment Date Type Action Status Goal Tobacco cessation counseling completed Goal Tobacco cessation counseling completed Goal Tobacco cessation counseling completed Goal Tobacco cessation counseling completed Goal Tobacco cessation counseling completed Goal Tobacco cessation counseling completed Goal Tobacco cessation counseling completed Goal Tobacco cessation counseling completed Goal Tobacco cessation counseling completed Goal Tobacco cessation counseling completed Goal Tobacco cessation counseling completed Goal Tobacco cessation counseling completed Goal Tobacco cessation counseling completed Goal Tobacco cessation counseling completed Goal Tobacco cessation counseling completed Goal Prescribed dietary intake co mpleted Goal Special diet education compl eted Referral Ordered: K[facility] : Plastic Surgery (related to Pain in left wrist) ordered Referral Referred To: Km [facility] [address] [place] [address], [phone] Ordered: Referrals: [facility]opathic [facility]opathic Physicians : Plastic Surgery. [facility]. Evaluate and treat ordered Referral Ordered: US THYROID ordered Referral Ordered: Podiatry (related to Pain in right foot) ordered Referral Ordered: Referrals: Podiatry. Evaluate and treat ordered Referral Ordered: SACRUM/COCCYX XRAY ordered Referral Ordered: Conrado Krause -[facility] : Internal Medicine : Gastroenterology (related to Abnormal weight loss) ordered Referral Referred To: Conrado Krause [address] [place], [place], [phone] Ordered: Referrals: [facility]opathic [facility]opathic Physicians : Internal Medicine : Gastroenterology. Conrado Krause. Evaluate and treat ordered Referral Ordered: Hematology (related to Essential thrombocytosis) ordered Referral Ordered: Referrals: Hematology. Evaluate and treat ordered Referral Ordered: Bony Hoffmann -[facility] : Urology (related to Urinary tract infection) ordered Referral Referred To: Bony Hoffmann [address]
[address] [place], [place], [id number] Ordered: Referrals: Allopathic & Osteopathic Physicians : Urology. Bony Hoffmann. Evaluate and treat ordered Referral Ordered: CT ABDOMEN&PELVIS W/CONTRAST ordered Referral Ordered: UPPER GI W/ KUB ordered Referral Referred To: Gal Scott MD [address] [place], [place], [id number] Ordered: Referrals: Gal Scott MD Evaluate and treat ordered Referral Ordered: Ammon Mesa -Allopathic & Osteopathic Physicians : Internal Medicine : Cardiovascular Disease (related to Coronary artery disease of [place] coronary artery without angina pectoris) ordered Referral Referred To: Ammon Mesa [address] [place], [place] [id number] Ordered: Referrals: Allopathic & Osteopathic Physicians : Internal Medicine : Cardiovascular Disease. Ammon Mesa. Evaluate and treat ordered Referral Ordered: US SOFT TISSUE CHEST ordered Referral Ordered: Gastroenterology (related to Occult blood in stool) ordered Referral Ordered: Referrals: Gastroenterology. Evaluate and treat ordered Referral Ordered: MRI THIRACIC SPINE W/O & W/DYE ordered Referral Ordered: CT THORAX W/O DYE ordered Referral Ordered: SLEEP STUDY, ATTENDED ordered Referral Ordered: MRI UPPER EXTREMITY W/O DYE Right arm ordered Referral Ordered: US KIDNEY ordered Referral Ordered: Physical Therapy (related to Pain in right shoulder) ordered Referral Referred To: Physical Therapy Ordered: Referrals: Physical Therapy. Evaluate and treat ordered Referral Ordered: SHOULDER XRAY Right ordered Referral Ordered: DXA BONE DENSITY, AXIAL ordered Referral Ordered: Haroon Garcia MD (related to Other proteinuria) ordered Referral Referred To: Haroon Garcia MD [address] [facility] [address] [place], [place], [id number] Ordered: Referrals: Haroon Garcia MD. Evaluate and treat ordered Referral Ordered: US ARTERIAL ANKLE/BRACIAL IND ordered Referral Ordered: CHEST X-RAY PA/LAT TWO-VIEWS ordered Referral Ordered: CARDIOVASCULAR STRESS TEST ordered Referral Ordered: Referral: Rheumatology. Evaluate and treat. ordered Referral Ordered: US EXAM, ABDOM, COMPLETE ordered Referral Ordered: COLONOSCOPY AND BIOPSY ordered Appointment Inocencio Poole BOOKED History Of Present Illness Encounter Date Complaint History Of Prese nt Illness GERd GERD1 Pt has chronic G ERD Pt takes protonix and pepcid PRN and doing ok Pt needs pepcid refilled wrist pain1 Pt c/o intermitt ent pain around ulnar aspect distal left wrist area on the volar side for one month, especially if he accidently bumped on the area. Pt notices sharp pain pt denies any numbness or tingling or injury or swelling. Pt denies any injury thyroid1 pt has hypothyro idism. pt is on 25 mcg of synthroid and his TSH is ok Pt denies any dysphagia or neck pain. Thyroid ultrasound showed benign nodules pain Pt has with c hronic neck and back pain and stiffness Pt takes norco PRN for pain. Pt needs refill. Pt doing ok Pt does not want any treatment for .. Pt is on skyrizi on crohn disease Pt also takes flexeril PRn. hypothyroidism1 Pt has hypothyro idism Pt started synthroid several months ago pt denies any dysphagia or neck pain HTN Pt has mild HTn Pt takes losartan Pt sees nephrology for proteinuria HLP Pt has HLP. Pt i s not sure if he is taking pravastatin from cardiology anymore pain Pt has with c hronic neck and back pain and stiffness Pt takes norco PRN for pain. Pt needs refill. Pt doing ok Pt does not want any treatment for .. Pt is on skyrizi on crohn disease Pt also takes flexeril PRn. pain Pt has with c hronic neck and back pain and stiffness Pt takes norco PRN for pain. Pt needs refill. Pt doing ok Pt does not want any treatment for .. Pt is on skyrizi on crohn disease Pt also takes flexeril PRn. crohn disease1 Pt has crohn dis ease Pt is on skyrizi and doing ok pt denies any GI symptoms Pt had normal colonoscopy recently pain Pt has with c hronic neck and back pain and stiffness Pt takes norco PRN for pain. Pt needs refill. Pt doing ok Pt does not want any treatment for .. Pt is on skyrizi on crohn disease Pt also takes flexeril PRn. physical Pt needs annual physical. Pt has RSL. pt doing ok with requip Pt has and he is on norco and skyrizi. Pt has crohn disease .Pt is on skyrizi. He sees GI. Pt has hypothyroidism Pt is on synthroid Pt denies any dysphagia or neck pain Pt has chronic GERD Pt is on protonix and doing ok. Pt has HTn Pt takes losartan. Pt has HLP Pt is on pravastatin Pt denies any new complaints pain Pt has with c hronic neck and back pain and stiffness Pt takes norco PRN for pain. Pt needs refill. Pt doing ok Pt does not want any treatment for .. Pt is on skyrizi on crohn disease Pt also takes flexeril PRn. RLS Pt has RLS Pt ta kes requip and doing ok Pt needs refill thyroid1 Pt has hypothyro idism Pt is not sure if he is on synthroid or not. Pt denies any dysphagia or neck pain HTN Pt has HTN Pt ta kes losartan and his bp is borderline high. Pt denies any chest pain or headache pain Pt has with c hronic neck and back pain and stiffness Pt takes norco PRN for pain. Pt needs refill. Pt doing ok Pt does not want any treatment for .. Pt is on humira on crohn disease Pt also takes flexeril PRn. pain Pt has with c hronic neck and back pain and stiffness Pt takes norco PRN for pain. Pt needs refill. Pt doing ok Pt does not want any treatment for .. Pt is on humira on crohn disease Pt also takes flexeril PRn. HLP Pt has mild HLP Pt is on pravastatin pt denies any myalgia hypothyroidism1 Pt has recurrent hypothyroidism Pt denies any dysphagia or neck pain .TPO and TSI ok .Pt has been feeling fatigue and gaining delmi slowly skin Pt accidental cu t about 1 inch around palm of right hand near 2nd and 3rd finger yesterday with clean blade. Pt denies any injury to bone or tendon Pt is able to move his finger ok. Pt did clean the wound well. Pt denies any numbness and tingling pain1 Pt has with c hronic neck and back pain and stiffness Pt takes norco PRN for pain. Pt needs refill. Pt doing ok Pt does not want any treatment for .. Pt is on humira on crohn disease Pt also takes flexeril PRn. crohn1 Pt has crohn dis ease Pt is off azathioprine and humira and he is on skyrizi now. 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 Pt denies any lower GI issue pain Pt has with c hronic neck and back pain and stiffness Pt takes norco PRN for pain. Pt needs refill. Pt doing ok Pt does not want any treatment for .. Pt is on humira on crohn disease Pt also takes flexeril PRn HTN Pt has HTn Pt ta kes losartan Pt is seeing cardiology pt denies any chest pain proteinuria1 Pt has proteinur ia. Pt takes losartan Pt has not seen nephrology for more than one year RLS Pt has RLS Pt is on requip and doing ok pain Pt has with c hronic neck and back pain and stiffness Pt takes norco PRN for pain. Pt needs refill. Pt doing ok Pt does not want any treatment for .. Pt is on humira on crohn disease Pt also takes flexeril PRn foot pain1 Pt c/o right shady t pain for one month Pt had something heavy fell on top of his right foot about one month ago and he notices persistent pain dorsal right foot when he tries to step off with right foot. Pt denies any swelling or any skin abrasion or any paresthesia or redness or warmth crohn disease1 Pt has crohn dis ease .Pt is on azathioprine and humira. Pt denies any lower Gi issue Pt had colonoscopy November of 2023. tobacco1 Pt no longer smo ella Pt had normal chest Ct. Pt denies any hemoptysis, sob or cough pain Pt has with c hronic neck and back pain and stiffness Pt takes norco PRN for pain. Pt needs refill. Pt doing ok Pt does not want any treatment for .. Pt is on humira on crohn disease Pt also takes flexeril PRn GERD1 Pt has chronic G ERD Pt takes protonix and pepcid and doing ok pt has daily GERD without above meds. HTN Pt has mild HTN and proteinuria Pt takes losartan and sees nephrology his bp is ok pain Pt has with c hronic neck and back pain and stiffness Pt takes norco PRN for pain. Pt needs refill. Pt doing ok Pt does not want any treatment for .. Pt is on humira on crohn disease Pt also takes flexeril PRn pain Pt has with c hronic neck and back pain and stiffness Pt takes norco PRN for pain. Pt needs refill. Pt doing ok Pt does not want any treatment for .. Pt is on humira on crohn disease pain Pt has with c hronic neck and back pain and stiffness Pt takes norco PRN for pain. Pt needs refill. Pt doing ok Pt does not want any treatment for .. Pt is on humira on crohn disease GERD1 Pt has chronic G ERD Pt doing ok with protonix Pt denies any abd jeramy Pt needs protonix refilled. crohn disease1 Pt has recurrent benign crohn disease on recent colonoscopy Pt is back on imuran and humira now. Pt denies any lower GI issue pain Pt has with c hronic neck and back pain and stiffness Pt takes norco PRN for pain. Pt needs refill. Pt doing ok Pt does not want any treatment for .. Pt is on humira on crohn disease crohn Pt has crohn dis ease Pt sees GI. Pt will have colonoscopy next week. Pt is back on humira and azathioprine. Pt denies any lower Gi issue pain Pt has with c hronic neck and back pain and stiffness Pt takes norco PRN for pain. Pt needs refill. Pt doing ok Pt does not want any treatment for .. Pt is on humira on crohn disease crohn1 Pt has crohn dis ease .Pt has not seen GI doctor in [facility] for more than one year. Pt states that he has not had humira and azathioprine for a while and his GI doctor wont refill them until october during his next beverly. Pt has been having GERD symptoms and he is out of protonix and pepcid also. pt restart protonix last month Pt has saw GI last week and he is back on humira and azathioprine now. cough1 Pt c/o acute ons et of productive cough with green phlegm for one weeks pt denies any chest pain or sob Pt denies any fever, sore throat or sinus symptoms HTN Pt has mild HTN. Pt is on losartan. Pt has been taking some cough meds. Pt denies any chest pain or headache pain Pt has with c hronic neck and back pain and stiffness Pt takes norco PRN for pain. Pt needs refill. Pt doing ok Pt does not want any treatment for .. Pt is on humira on crohn disease muscle1 Pt states that h is dog's ball went under the bed and he tried to get down and reach out under the bed for the ball and he felt acute pain left side of chest and left upper shoulder area. Pt denies any chest pain Pt states that the pain is slightly better. RLS Pt has RLS. Pt i n on requip and doing ok. Pt needs refill crohn Pt has crohn dis ease .Pt has not seen GI doctor in [facility] for more than one year. Pt states that he has not had humira and azathioprine for a while and his GI doctor wont refill them until october during his next beverly. Pt has been having GERD symptoms and he is out of protonix and pepcid also pain Pt has with c hronic neck and back pain and stiffness Pt takes norco PRN for pain. Pt needs refill. Pt doing ok Pt does not want any treatment for .. Pt is on humira on crohn disease pain Pt has with c hronic neck and back pain and stiffness Pt takes norco PRN for pain. Pt needs refill. Pt doing ok Pt does not want any treatment for .. Pt is on humira on crohn disease hematuria1 Pt has history o f hematuria. Pt denies any urinary symptoms .Pt had negative CT scan and repeat UA is negative for hematuria and cytology benign hematuria1 Pt has history o f hematuria. Pt denies any urinary symptoms Pt had negative Ct scan and repeat UA is clear of blood. Cytology pending proteinuria1 Pt has chronic p roteinuria. Pt sees nephrology. Pt takes losartan and he needs it refilled. pain Pt has with c hronic neck and back pain and stiffness Pt takes norco PRN for pain. Pt needs refill. Pt doing ok Pt does not want any treatment for .. Pt is on humira on crohn disease thyroid1 Pt denies any dy sphagia or neck pain. TSH and TPO and TSI all normal hematuria1 Pt has persisten t hematuria. Pt denies any urinary symptoms Pt denies any flank pain, Lab missed urine cytology Pt has not done CT yet pain Pt has with c hronic neck and back pain and stiffness Pt takes norco PRN for pain. Pt needs refill. Pt doing ok Pt does not want any treatment for .. Pt is on humira on crohn disease CAD Pt has signs of CAD on chest CT Pt denies any chest pain Pt saw cardiology and he will do chemical stress test thyroid He denies any dy sphagia or neck pain His thyroid level was low last month. He had repeat TSH done which was normal .TPO and TSI pending. hematuria1 Pt has hematuria . Pt denies any urinary symptoms Pt had urine done which still showed hematuria. Cytology pending. pain Pt has with c hronic neck and back pain and stiffness Pt takes norco PRN for pain. Pt needs refill. Pt doing ok Pt does not want any treatment for . pain Pt has with c hronic neck and back pain and stiffness Pt takes norco PRN for pain. Pt needs refill. Pt doing ok Pt does not want any treatment for . HLP Pt has HLP Pt is not on any diet. Pt takes pravastatin Pt denies any myalgia thyroid1 Pt has low thyro id Pt denies any dysphagia or neck pain. pt has mild fatigue recently iron1 Pt has high iron Pt does not have polycythemia. Pt is not on any iron supplement hematuria1 Pt has hematuria and proteinuria. Pt denies any urinary symptoms pain Pt has with c hronic neck and back pain and stiffness Pt takes norco PRN for pain. Pt needs refill. Pt doing ok Pt does not want any treatment for . pain Pt has with c hronic neck and back pain and stiffness Pt takes norco PRN for pain. Pt needs refill. Pt doing ok Pt does not want any treatment for . pain Pt has with c hronic neck and back pain and stiffness Pt takes norco PRN for pain. Pt needs refill. Pt doing ok Pt does not want any treatment for . tobacco1 Pt needs LDCT fo r lung CA screening. Pt denies any hemoptysis, sob or cough HTN Pt has HTN Pt ta kes losartan and his bp is borderline high pt denies any chest pain or headache pain Pt has with c hronic neck and back pain and stiffness Pt takes norco PRN for pain. Pt needs refill. Pt doing ok Pt does not want any treatment for . physical Pt needs annual physical Pt has crohn and ankylosis spondylitis. Pt sees GI. Pt is on humira and azathioprine. Pt is on norco and flexeril PRn for pain. Pt has RLS Pt takes requip and doing ok Pt has HTN and he takes losartan .Pt has HLP. Pt takes pravastatin. Pt has chronic GERD Pt takes protonix and pepcid Pt denies any new complaints pain Pt has with c hronic neck and back pain and stiffness Pt takes norco PRN for pain. Pt needs refill. Pt doing ok Pt does not want any treatment for . Pt also needs flexeril refilled pain Pt has with c hronic neck and back pain and stiffness Pt takes norco PRN for pain. Pt needs refill. Pt doing ok Pt does not want any treatment for RLS Pt has RSL. Pt d oing ok with requip. Pt needs refill pain Pt has with c hronic neck and back pain and stiffness Pt takes norco PRN for pain. Pt needs refill. Pt doing ok Pt does not want any treatment for pain Pt has with c hronic neck and back pain and stiffness Pt takes norco PRN for pain. Pt needs refill. Pt doing ok Pt does not want any treatment for RLS1 pt doing ok with requip. Pt denies any neuropathy pain Pt has with c hronic neck and back pain and stiffness Pt takes norco PRN for pain. Pt needs refill. Pt doing ok Pt does not want any treatment for pain Pt has ankylosis spondylosis with chronic neck and back stiffness and pain. Pt needs handicap parking permit renewed. pain Pt has with c hronic neck and back pain and stiffness Pt takes norco PRN for pain. Pt needs refill. Pt doing ok Pt does not want any treatment for HTN Pt has HTN Pt ta kes losartan and his bp is stable. Pt denies any chest pain pain Pt has with c hronic neck and back pain and stiffness Pt takes norco PRN for pain. Pt needs refill. Pt doing ok Pt does not want any treatment for pain Pt has with c hronic neck and back pain and stiffness Pt takes norco PRN for pain. Pt needs refill tailbone1 Pt states that t ailbone pain resolved. Pt did not do x ray Pt has with c hronic neck and back pain and stiffness Pt takes norco PRN for pain Pt is leaving for road trip tomorrow . tobacco1 Pt denies any he moptysis, sob or cough .LDCT ok. Pt no longer smoking tailbone pain1 Pt slipped on th e stairs and fell on his buttock and bounced down several steps on his buttock pt did not hit his head. pt notices bruising around the tailbone area. Pt states that he has sharp pain around tailbone area, worse with siting. He denies any L spine pain Pt denies any sciatica or any loss of bowel or bladder control or any saddle area paresthesia . pain Pt has chronic b ack pain due to . Pt takes norco and flexeril PRn for pain and doing ok. Pt failed NSAID and ultram. Pt doing ok with norco. Pt has chronic neck and back stiffness ,pt denies any sciatica or any loss of bladder control. Pt denies any paresthesia. Pt is on humira. Pt denies any saddle area paresthesia. RLS Pt has RLS. Pt t akes requip and doing ok Pt denies any paresthesia HTN Pt has HTN Pt ta kes losartan and his bp is borderline high Pt denies any chest pain or headache BPH1 Pt denies any ur inary symptoms. His PSA is ok weight gain1 Pt has been gain ing weight .Pt has crohn and he is seeing GI and he is doing well. pt denies any appetite loss, nausea, vomiting, early satiety, diarrhea, blood in stool pain Pt has chronic b ack pain due to . Pt takes norco and flexeril PRn for pain and doing ok. Pt failed NSAID and ultram. Pt doing ok with norco. Pt has chronic back stiffness ,pt denies any sciatica or any loss of bladder control. Pt denies any paresthesia. Pt is on humira. Pt denies any saddle area paresthesia. tobacco1 Pt has more than 100 pack year tobacco history Pt denies any sob, hemoptysis or cough .pt needs LDCT pain Pt has chronic b ack pain due to . Pt takes norco and flexeril PRn for pain and doing ok. Pt failed NSAID and ultram. Pt doing ok with norco. Pt has chronic back stiffness ,pt denies any sciatica or any loss of bladder control. Pt denies any paresthesia. Pt is on humira. Pt denies any saddle area paresthesia. physical Pt needs annual physical. pt has ankylosis spondylosis with crohn disease Pt takes norco PRN for pain. Pt sees GI and he takes humira and azathioprine and doing ok. Pt has borderline low wbc and high MCV. Pt has borderline high glucose and iron level.. Pt sees hematology Pt has chronic proteinuria Pt denies any urinary symptoms. Pt overall feels well Pt denies any new complaints pain Pt has chronic b ack pain due to . Pt takes norco and flexeril PRn for pain and doing ok. Pt failed NSAID and ultram. Pt doing ok with norco. Pt has chronic back stiffness ,pt denies any sciatica or any loss of bladder control. Pt denies any paresthesia. Pt is on humira. Pt denies any saddle area paresthesia. crohn disease1 Pt has crohn dis ease Pt just had colonoscopy done recently Pt is on humira and azathioprine. Pt sees GI. Pt denies any active bowel issue pain Pt has chronic b ack pain due to . Pt takes norco and flexeril PRn for pain and doing ok. Pt failed NSAID and ultram. Pt doing ok with norco. Pt has chronic back stiffness ,pt denies any sciatica or any loss of bladder control. Pt denies any paresthesia. Pt is on humira. Pt denies any saddle area paresthesia. pain Pt has chronic b ack pain due to . Pt takes norco and flexeril PRn for pain and doing ok. Pt failed NSAID and ultram. Pt doing ok with norco. Pt has chronic back stiffness ,pt denies any sciatica or any loss of bladder control. Pt denies any paresthesia. Pt just saw rheumatology and was told to continue humira HLP Pt has mild CAD Pt denies any chest pain Pt sees cardiology and he had negative stress echo done early this year. Pt takes lipitor. RLS Pt has RLS. Pt t akes requip qhs and doing ok Pt denies any neuropathy crohn disease1 Pt has crohn dis ease Pt takes humira. Pt sees GI. Pt has beverly for colonoscopy soon pain Pt has chronic b ack pain due to . Pt takes norco and flexeril PRn for pain and doing ok. Pt failed NSAID and ultram. Pt doing ok with norco. Pt has chronic back stiffness ,pt denies any sciatica or any loss of bladder control. Pt denies any paresthesia. Pt just saw rheumatology and was told to continue humira pain Pt has chronic b ack pain due to . Pt takes norco and flexeril PRn for pain and doing ok. Pt failed NSAID and ultram. Pt doing ok with norco. Pt has chronic back stiffness ,pt denies any sciatica or any loss of bladder control. Pt denies any paresthesia crohn disease1 Pt has crohn dis ease Pt is on humira and doing ok. Pt will have repeat colonoscopy soon thumb numbness1 Pt c/o left late ral thumb area numbness and tingling for 3-4 months Pt denies any injury. Pt denies any weakness. Pt denies any other finger numbness or tingling Pt denies any cold extremity. HTN Pt has HTN. Pt t akes losartan and doing ok .Pt denies any chest pain or headache. His bp is ok pain Pt has chronic b ack pain due to . Pt takes norco and flexeril PRn for pain and doing ok. Pt failed NSAID and ultram. Pt doing ok with norco. Pt has chronic back stiffness ,pt denies any sciatica or any loss of bladder control. Pt denies any paresthesia pain Pt has chronic b ack pain due to . Pt takes norco and flexeril PRn for pain and doing ok. Pt failed NSAID and ultram. Pt doing ok with norco. Pt has chronic back stiffness ,pt denies any sciatica or any loss of bladder control. Pt denies any paresthesia pain Pt has chronic b ack pain due to . Pt takes norco and flexeril PRn for pain and doing ok. Pt failed NSAID and ultram. Pt doing ok with norco. Pt has chronic back stiffness ,pt denies any sciatica or any loss of bladder control. Pt denies any paresthesia crohn dsiease1 Pt has crohn dis ease Pt is on imuran and he will start humira soon pt gained some weight Pt denies any acute GI flare up Pt is seeing GI specialist at [facility] now CAD Pt has CAD and H LP .Pt takes lipitor Pt denies any myalgia Pt denies any chest pain . Pt sees cardiology. Pt had negative cardiac stress echo early this year . pain Pt has chronic b ack pain due to . Pt takes norco and flexeril PRn for pain and doing ok. Pt failed NSAID and ultram. Pt doing ok with norco. Pt has chronic back stiffness ,pt denies any sciatica or any loss of bladder control. Pt denies any paresthesia pain Pt has chronic b ack pain due to . Pt takes norco and flexeril PRn for pain and doing ok. Pt failed NSAID and ultram. Pt doing ok with norco. Pt has chronic back stiffness ,pt denies any sciatica or any loss of bladder control. Pt denies any paresthesia tobacco1 pt denies any he moptysis sob or cough. LDCT ok Pt no longer smoking pain Pt has chronic b ack pain due to . Pt takes norco and flexeril PRn for pain and doing ok. Pt failed NSAID and ultram. Pt doing ok with norco. Pt has chronic back stiffness ,pt denies any sciatica or any loss of bladder control. RLS Pt has RLS Pt ta kes requip and doing ok HTN Pt takes losarta n and his bp is stable. tobacco1 Pt denies any he moptysis, sob or cough pt needs LDCT .pt no longer smoking crohn disease1 pt is s/p small bowel resection, partial colectomy, bladder fistula repair. Pt states that he had a rough time recovering from the surgery. Pt did have some BM issue but he is doing ok now Pt has normal BM Pt has 39 staple on his abdominal surgical site. Pt is on oxycodone for pain PRN. Pt had Surgery on 10/06/20. Pt is not taking any norco while on oxycodone pain Pt has chronic b ack pain due to . Pt takes norco and flexeril PRn for pain and doing ok. Pt failed NSAID and ultram. Pt doing ok with norco. Pt has chronic back stiffness ,pt denies any sciatica or any loss of bladder control. crohn disease1 Pt is planning t o have surgery in one week for crohn disease PT just saw cardiology and will do cardiac stress test before the surgery Pt denies any chest pain. pain Pt has chronic b ack pain due to . Pt takes norco and flexeril PRn for pain and doing ok. Pt failed NSAID and ultram. Pt doing ok with norco. Pt has chronic back stiffness ,pt denies any sciatica or any loss of bladder control. crohn disease1 Pt is seeing GI and he will have bowel resection in October 2020 .Pt denies any acute pain pain Pt has chronic b ack pain due to . Pt takes norco and flexeril PRn for pain and doing ok. Pt failed NSAID and ultram. Pt doing ok with norco. Pt has chronic back stiffness ,pt denies any sciatica or any loss of bladder control. physicxal PT needs annual physical. Pt has crohn disease with early small bowel obstruction and also colovesical fistula. Pt has recurrent infection. Pt is seeing GI at [facility] and will have small bowel resection with bladder repair soon .Pt denies any nausea, vomiting, diarrhea. Pt has AK and he takes norco and flexeril PRN for pain Pt has RLS Pt takes requip Pt is not anemic. pain Pt has chronic b ack pain due to . Pt takes norco and flexeril PRn for pain and doing ok. Pt failed NSAID and ultram. Pt doing ok with norco. Pt has chronic back stiffness ,pt denies any sciatica or any loss of bladder control. Pt could not afford lyrica. his back pain is doing ok currently crohn disease1 Pt has crohn dis ease Pt is on imuran but his disease is not well controlled . CT scan showed multiple segments of small bowel and colon consistent with crohn disease and also thickening of the sigmoid colon, malignancy can not be excluded. He also has early partial small bowel obstruction with wall thickening. P[t also has colovesical fistula with secondary cystitis with wall thickening at the dome of the bladder. Pt is seeing urology and he denies any UTI symptoms he is on abx from urology pain1 Pt has chronic b ack pain due to . Pt takes norco and flexeril PRn for pain and doing ok. Pt failed NSAID and ultram. Pt doing ok with norco. Pt has chronic back stiffness ,pt denies any sciatica or any loss of bladder control. Pt states that his back pain seems getting worse lately lymph node1 Pt has abdominal lymph node Pt keeps losing weight pt denies any appetite loss pt states that he has stomach upset after food. Pt does have crohn disease. Pt spoke with GI and hematology and was told that he should have repeat abd/pelvis CT. Pt is on imuran HTN Pt takes losarta n and his bp is 130/70 at home. RLS1 Pt has RLS. Pt t akes requip and doing ok lymph Pt had CT which showed some lymphadenopathy. Pt states that form maker plaster did talk to him but not sure what is the plan. Pt is getting worked up for thrombocytosis pain Pt has chronic b ack pain due to . Pt takes norco and flexeril PRn for pain and doing ok. Pt failed NSAID and ultram. Pt doing ok with norco. Pt has chronic back stiffness ,pt denies any sciatica or any loss of bladder control BPH Pertinent negati ves include dysuria, fever, frequency (urinary) and slow stream. Additional information: Pt denies any urinary symptoms .His PSA is ok recently. UTI1 Pt has recurrent UTi. Pt saw urologist at [facility] and he was stopped bactrim and he is currently on keflex now He denies any UTi symptoms platelet1 pt has persisten tly elevated platelet. Pt denies any bleeding or bruising pain Pt has chronic b ack pain due to . Pt takes norco and flexeril PRn for pain and doing ok. Pt failed NSAID and ultram. Pt doing ok with norco. Pt has chronic back stiffness ,pt denies any sciatica or any loss of bladder control pain Pt has chronic b ack pain due to . Pt takes norco and flexeril PRn for pain and doing ok. Pt failed NSAID and ultram. Pt doing ok with norco. Pt has chronic back stiffness ,pt denies any sciatica or any loss of bladder control UTI1 Pt has recurrent UTIs pt notices some dark color urine with only mild burning and frequency ,Pt denies any flank pain. Pt denies any nausea, vomiting, diarrhea. crohn disease1 Pt has Crohn dis ease. Pt is on imuran and taping prednisone. Pt doing ok. Pt denies any abd kemp or diarrhea platelet1 Pt had slightly high platelet recently. Pt denies any bruising or bleeding colon mass1 Pt had abnormal abdominal and pelvic CT ,Pt had colonoscopy done which was negative for colon mass. Pt does crohn disease. Pt is seeing GI and is getting treatment now. Pt is on immunosuppressant. UTI Pt has recurrent UTIs. Pt just was treated with levaquin. Pt denies any urinary symptoms lymphadenopathy Pt has some abdo maris lymphadenopathy. Pt denies any abdominal pain pain Pt has chronic b ack pain due to . Pt takes norco and flexeril PRn for pain and doing ok. Pt failed NSAID and ultram. Pt doing ok with norco UTI1 Pt has recurrent UTis . Pt notices mild dysuria and frequency and urgency. Pt denies any fever or flank pain colon mass1 pt has colon mas s on CT scan and he is seeing GI and will have colonoscopy next tuesday GI told him that it maybe the crohn disease causing the CT to be false positive. pt denies any abd pain or GI bleeding UTI1 Pt has recurrent UTi. Pt just had UA done which showed UTI again ,Pt did take abx recently post UTI .Pt currently notices strong smell of urine but no dysuria or urgency or frequency. Pt denies any flank pain colon1 Pt has a colon m ass around sigmoid colon. Pt supposes to see Dr. Chavez recently but he had to miss his appointment .Pt denies any lower GI bleeding Pt has been losing weight chronic pain1 Pt has chronic b ack pain due to . Pt takes norco and flexeril PRn for pain and doing ok. Pt failed NSAID and ultram anemia1 Pt denies any bl eeding anemia resolved GERD1 Pt has GERD Pt t akes pepcid and doing ok. Pt is on imuran for crohn .Pt doing ok UTI1 Pt has been havi ng recurrent UTIs Pt felt better with bactrim but his suprapubic pressure and dysuria restarted soon after Pt denies any fever, chill, flank pain UA showed positive for UTi again pain1 Pt has . pt pagan s chronic neck and back stiffness and pain .Pt does not want treatment .Pt takes norco and flexeril PRN and doing ok Pt denies any worsening pain pain1 Pt has . pt pagan s chronic neck and back stiffness and pain .Pt does not want treatment .Pt takes norco and flexeril PRN and doing ok Pt denies any worsening pain UTI1 Pt c/o recurrent urinary burning, mild suprapubic pressure, mild urgency and frequency for 1-2 months PT supposes to repeat UA with cytology but he has not done so. Pt denies any flank pain . anemia1 Pt has mild anem ia Pt denies any blood loss Pt has crohn disease and he is on imuran currently Pt denies any blood loss in stool lung CA Pt needs LDCT Pt denies any hemoptysis, sob or cough chronic pain1 Pt has . P olive es norco and flexeril PRn and doing ok pt has diffuse back and neck stiffness and pain daily. Pt does not want any treatment for Pt denies any worsening pain. RLS Pt has RLS. Pt t akes requip at night and doing ok hematuria1 Pt had hematuria recently pt denies any UTi symptoms chronic pain1 Pt has . P olive es norco and flexeril PRn and doing ok pt has diffuse back and neck stiffness and pain daily. Pt does not want any treatment for Pt denies any worsening pain UTI1 Pt recently had UTI. PT has hematuria pt had cipro by GI. He is doing ok currently GERD1 pt has GERD Pt h ad EGD recently and showed GERD. Pt was started pepcid in addition to protonix. Pt is doing ok HLP Pt has CAD pt de nies any chest pain. Pt is on pravastatin. His lipid profile is ok. Pt denies any myalgia chronic pain Pt has . P olive es norco and flexeril PRn and doing ok chronic pain1 Pt has and he has diffuse back and neck stiffness and pain Pt takes norco and flexeril PRn and doing ok Pt failed NSAID and ultram stomach upset Pt continues to have stomach upset and nausea post food. Pt had upper Gi done which showed some signs of crohn disease. Pt has normal transient time. pt is seeing GI now and he is on azathioprine currently pt. Pt has daily GERD and he takes protonix Pt supposes to do EGD last year but he never set it up with GI MD. Pt actually gained some weight. Pt denies any blood in stool or diarrhea chronic pain1 Pt has chronic b ack and neck stiffness and pain due to Pt takes norco and flexeril PRn for pain and doing ok Pt failed NSAID and ultram crohn disesase1 Pt just started treatment recently. he does not know the name of the pill. he has upper Gi scheduled in the morning. Pt eating ok. Pt denies any nausea, vomiting, early satiety, etc back pain1 Pt has . Pt ta kes norco and flexeril PRN for pain and doing ok pT denies any worsening pain Pt denies any loss of bladder control weight loss1 Pt lost 25 pound s during last 3 months pt has slightly poor appetite. Pt has some intermittent periumbilical abdominal pain for the past 3 months pt denies any nausea, vomiting, diarrhea pt feels early satiety with food Pt denies any abd pain with food. Pt just over has lost some appetite. Pt is being worked up for Crohn disease currently HTN Pt has proteinur ia and mild HTn. Pt sees nephrology. Pt takes losartan. His BP is stable crohn Pt denies any ab d pain, nausea, vomiting, diarrhea, or change of bowel. He is seeing Dr. Chavez and will do lab work for crohn disease Pt has ankylosis spondylitis with chronic neck and back pain. Pt takes norco and flexeril and doing ok. Pt failed NSAID and ultram RLS Pt has RLS Pt ta kes requip and doing ok. Pt denies any numbness or tingling chronic pain Pt has chronic n shankar and back pain and stiffness pt has . Pt takes norco and flexeril Pt does not want treatment for it now Pt denies any worsening pain, Pt denies any loss of bladder control HTN pt has mild HTn and also proteinuria Pt is seeing nephrology. Pt takes losartan. Pt denies any UTi symptoms SMO Pt was recently admitted to hospital for abdominal pain, nausea, vomiting. he was diagnosed with ? Crohn disease. Pt underwent NG bowel rest and his bowel started to move again now. Pt denies any nausea, vomiting, diarrhea, constipation now. Pt denies any abd pain. Pt was told he most likely has crohn disease .Pt just had benign colonoscopy last year. Pt will see Dr. Chavez now PHysical Pt needs annual physical. pt has CAD Pt is seeing cardiology and he was started on pravastatin which made his RLS worse. Pt denies any chest pain. Pt has ankylosis spondylitis. Pt takes norco and flexeril and doing ok. Pt has mild GERD Pt takes protonix and doing ok. Pt failed Zantac. Pt states that he has GERD without protonix. Pt supposes to do EGD but he could never reach the GI physician. Pt has RLS and he takes requip and doing ok Pt denies any other complaints CAD Pt denies any ch est pain. 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 back pain1 Pt has chronic b ack and neck pain and stiffness. Pt has . Pt take norco PRN for pain and doing ok gynecomastia1 pt has asymptoma tic gynecomastia. Pt denies any breast pain or nodule or nipple discharge hernia1 Pt has umbilical hernia for several months. Pt notices mild pain occasionally. Pt denies any nausea, vomiting, diarrhea chronic pain1 Pt has chronic b ack and neck pain due to angiolysis spondylitis. Pt takes norco PRN and flexeril and doing ok. Pt does not treatment for . Pt has back and neck stuffiness and pain. Pt failed NSAID and ultram. Pt doing ok with norco restless1 Pt has restless leg. Pt doing ok with requip HLP Pt has mildly hi gh TG. Pt is on low fat and low carb diet HTN Pt has mild HTN today. Pt takes losartan. Pt has proteinuria. Pt denies any UTI symptoms CAD1 Pt has mild CAD on CT scan. Pt denies any chest pain COPD1 pt has COPD. Pt does not feel sob. Pt has not smoked for 8 years now Pt has chronic a nkylosis spondylitis. Pt has chronic neck and back stiffness and pain. Pt denies any worsening pain. Pt failed NSAID. Pt does NOT want treatment. Pt takes norco PRN for pian. Pt doing ok. GERD1 Pt takes protoni x Pt failed zantac. Pt has daily GERD without protonix Pt supposes to do EGD by GI but GI has not called him back yet. Pt denies any abdominal pain lung nodule1 Pt has history o f lung nodule along with more than 30 pack year tobacco. Pt denies any sob. Pt needs chest CT for screening chronic pain Pt has ankylosis spondylitis. pt has stiff neck and back. Pt doing ok with norco and flexeril. Pt denies any worsening pain proteinuria1 pt has chronic p roteinuria. pt takes losartan. Pt sees nephrology. Pt denies any UTI symptoms chronic pain Pt has chronic a nkylosis spondylitis. Pt takes norco and flexeril PRn for pain. Pt does NOT want treatment for it. Pt doing ok. Pt failed NSAID and ultram GERD1 Pt has been tryi ng to get in touch with GI for EGD but unsuccessful. pt doing ok with PPI PRN pain1 Pt has chronic a nkylosis spondylitis. Pt has chronic back pain. P takes norco and flexeril PRn for pain and doing ok. Pt failed NSAID and ultram GERD1 Pt has chronic G ERD Pt takes protonix daily. Pt failed zantac. Pt needs EGD. Pt denies any active symptoms skin nodule1 Pt notices a sma ll pea size subcutaneous lesion right forearm for 3 months. pt denies any pain Pt denies any size change. Pt denies any radiculopathy or any numbness or tingling pain1 Pt has chronic s tiff neck and back pain due to ankylosis spondylitis. Pt denies any worsening pain. Pt takes norco and also flexeril PRN and doing ok. Pt denies any worsening pain HLP Pt has mild high TG Pt is not on any diet. GERD1 Pt had normal EG D 2013. Pt supposes to do another egd by Dr. trejo. Pt told me he started to take protonix daily now due to GERD symptoms. His symptoms are worse without protonix pt also notices worsening symptoms with tomato sauce pain1 Pt notices a sha rp pain spot medial to left scapular area for one week pt has been doing more lifting. Pt denies any shoulder pain Pt denies any chest pain Pt denies radiation of pain to chest. Pt only notices pain with shoulder movement. Pt states that the pain is mild chronic pain Pt has chronic a nkylosis spondylitis. Pt has chronic neck and back stiffness and pain pt takes norco and flexeril PRN and doing ok Pt denies any worsening pain proteinuria1 pt has mild prot einuria. pt is seeing nephrology Pt is on losartan. GERD1 Pt has GERd Pt t akes protonix daily. Last EGD was 2013 which was normal. Pt states that zantac does not help and he has daily GERD without protonix HLP Pt has mild high TG last year. Pt is trying low carb diet. chronic pain1 Pt has chronic n shankar and back pain pt has ankylosis spondylosis. pt has stiff back and neck pain. Pt takes norco and flexeril PRN for pain colon polyp1 Pt has colon martin yp. He has hyperplastic polyp and no need for repeat colonoscopy in 10 years GERD1 Pt has been havi ng GERD symptoms. Pt states that he was started on some med while seeing GI for colonoscopy and he states that it is working. Pt does not know the name of it proteinuria1 Pt just seen Dr[address] Garcia and he had urine and blood work done recently HTN Pt has HTN and m ild proteinuria. Pt is on losartan and doing ok Pt is seeing nephrology restless leg Pt has restless syndrome. Pt is doing well with requip. Pt has normal iron panel. Pt has ankolosis spondylosis. pt has chronic neck and back stiffness and pain Pt failed NSAId pt takes norco PRn and flexeril and doing ok DUI Pt needs medical clearance to get his driving license back Pt had history of DUI. pt no longer drinks alcohol chronic pain Pt has ankylosis spondylitis. Pt has chronic stuffiness and pain around neck and back. Pt takes norco and flexeril for pain and his symptoms are well controlled. . Pt denies any new issue chronic pain Pt has chronic n shankar and back pain pt has stiffness. pt has ankylosis spondylitis. Pt does not want any further treatment. Pt doing ok with norco and flexeril. HTN Pt has HTn Pt pagan s mild proteinuria. Pt takes losartan and also he sees nephrology. he is stable. chronic pain Pt has chronic n shankar and back pain due to anklosis spondylitis Pt takes norco and flexeril PRN for pain. Pt has chronic stiffness. Pt denies any worsening pain Physicla Pt needs annual physical. pt has chronic ankolysis spondylosis. Pt takes norco and flexeril for pain. pt denies any worsening pain. Pt has HTN and proteinruia. Pt takes losartan. His BP is ok. Pt has restless leg. Pt takes requip and doing ok. Pt also will do colonosocpy soon. pt denies any rectal bleeding. 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 Pt denies any pain T spine Pt has ankylosis spondylitis. Pt takes norco and flexeril PRN for pain Pt doing ok pt denies any wrosening pain T spine1 Pt had MRI done which showed hemangioma. Outside radiology wanted to old CT which they got but he has been getting the run around. fecal globin1 Pt has postivie fecal globin. pt deneis any diarrhea. Pt denies any constipation Pt deneis any hemorrhoid. Pt denies any GI issue Pt has ankolosis spondylosis. Pt take norco and flexeril PRN for pain. pt has chronic neck adn back pain and stiffness. Pt doing ok with meds lung nodule Pt had another c hest CT done and the nodule resolved Pt denies any sob pt has akolosis spondylitis. Pt has stiff back and neck Pt has chronic pain. Pt takes norco and flexeril PRn for pain. T spine1 Pt had T spine M Ri done which showed hemagioma. however the radiologist recommened comparsion with old film colon CA screening1 Pt denies an y GI issue Pt denies any change in genet or bleeding Pt had normal colonsocpy 2013 chest noudle1 Pt has lung nodu le. Pt no longer smoking. Pt needs repeat chest CT in 6 months. Pt denies any sob chronic pain1 Pt has chronic b ack pain due to AK. pt takes norco and flexeril PRn for pain. Pt denies any wrosening pain. Pt denies any loss of bladder control tspine1 Pt has T spine a bnormality. pt neesd MRi of T spine. Pt needs to find a place that can do MRi open upright. restless Pt has restless leg syndrome. Pt takes requip and doing ok. chronic pain1 Pt has chronic n shankar and back pain and stiffness. P take norco and flexeril PRN and doing ok pt denies any worsening pain Tspine Pt has abnormal T spine and he went back for the MRI but he could not fit the MRi machine due to stiffness of his back. proteinuria1 Pt has proteinur ia. Pt is on losartan. Pt had benign renal ultrasound. Pt is seeing tax director restlessleg Pt has restless leg syndrome. Pt takes requip and doing ok. Pt denies any numbness. chronic pain Pt has chronic n shankar and back pain. Pt has . Pt has chronic stiffness pt does not want any immune treatment/ T spine1 Pt has T spine l ucency. Pt denies any specific T spine pain. pt has anklosis spondylosis. Pt has diffuse back pain and stiffness. Pt takes norco and flexeril PRN for pain. Pt denies any worsening pain. Pt could not tolerate MRi of T spine and the procedure was aborted. Pt denies any other complaints lung nodule1 Pt has lung nodu le. Pt quit smoking 6 years ago. Pt denies any sob. T spine Pt has T spine a bnormality on CT scan. Pt has ankolysis spondylosis. Pt takes norco and flexeril PRn for pain Pt doing ok. proteinuria1 Pt has mild slubber tender gertrudis proteinuria pt is on losartan His BP is ok Pt sees nephrology GERD1 Pt has intermitt ent GERD. Pt had benign EGD 2-3 years ago. Pt only has very mild heartburn symptoms and he takes tums occassionally. Pt is off protonix. Pt denies any abd pain chronic pain Pt has chronic n shankar and back pain. Pt has ankolosis spondylitis. Pt takes norco and flexeril PRN for pain. Pt does not want to get rheumatologic treatment. Pt denies any worsening symptoms Pt has . Pt ta kes norco and flexeril PRN and doing ok. Pt denies any worsenign jeramy HLP Pt has mild high tG. Pt is on low fat and low carb diet hyperglycemia1 Pt has mildly hi gh glucose. Pt denies any polyuria, polydipsia restless leg Pt has well cont rolled RSL. His iron is normal. He is doing well with requiip back pain1 Pt has chronic n shankar and back pain due to anklosis spodylosis. Pt takes norco and flexeril for pain PRN and doing ok. Pt denies anyw rosenign pain GERD1 Pt has daily NGUYEN D Pt takes protonix PRN. Pt doing ok currently. Pt denies any abd pain HTN Pt has mild HTN and proteinuria. Pt is seeing Dr. Garcia. Pt is on losartan. restless leg Pt takes requip and doing ok. Pt denies any leg pain or numbness Pt has . pt ta kes norco and flexeril PRN for pain and doing ok. Pt denies any worsening pain or stiffness proteinuria Pt takes losarta n and his BP is ok. Pt sees nephrology. Pt denies any UTI symptoms tobacco1 Pt quit 6 years ago. Pt did have 40 pack yeaer tobacco. Pt denies any SOB Pt has . Pt pagan s chronic back and neck stiffness and pain. pt takes flexeril and norco PRN for pain and doing ok. Pt denies any worsening pain restless leg Pt has restless leg. Pt takes requip and working ok. Pt denies any abd pain bloating Additional infor katrin: Pt feels mild bloating. Amitriptyilne is not working. Pt takes protonix for GERD symptoms. Pt denies any GERd or abd pain. Pt denies any diarrhea, constipation, nasuea, vomiting. sleep Pt does not have any sleep apnea He does snore. Pt denies any fatigue in AM. Pt denies any trouble with breathing at night GERD1 Pt has daily NGUYEN D symptoms. Pt states that protonix is doign ok pt denies any abd pain or any appetite loss or GERD symptoms chronic pain1 Pt has chronic n shankar and back apin due to . Pt takes norco and flexeril PRN for pain Pt denies any numbness or tingling. Pt denies any loss of bowel or bladder control IBS1 Pt has IBS with bloating and chronic constipation and diarrhea. Pt states that amitriptyline higher dose is helping also. Pt denies any abd pain cough1 Pt c/o persisten t chest congestion and cough. Pt took abx already. Pt states that it started to break up and he is able to cough phlegm up. Pt denies any chest pain or SOB cough1 Pt c/o green pro ductive coughing with phlegm for one week. Pt denies any SOB or chest pain. Pt tried mucinex and nyquil but has not helped. Pt states that he canot get the phlegm out. Pt denies any fever. Pt states that he canot sleep due to cough chronic pain1 Pt has chronic n shankar and back pain due to . Pt takes norco for pain and doing ok. Pt denies any worsening pain Pt has a lot of stiffness. GERD1 Pt has GERD. Pt states that zantac does not work anymore. Pt states that his insurance does not pay for omeprazole. IBS IBS1 Pt has IBS and s ome dyspepsia. Pt has some bloating but no nausea, vomiting, diarrhrea. Pt denies any abd pain. Pt states that amitrptyline has not helped sleep Pt snores at [facility] and he is a restless sleeper per pt. Pt denies any trouble with breathing at night. Pt feels slighlty tired in the morning GERD1 Pt has daily NGUYEN D. Pt takes zantac but not working. Pt denies any nauea, vomiting and diarreha. Pt denies any abd pain restless leg Pt has restless leg syndrome. Pt takes requip 1 mg qhs and doing much better. Pt denies any worsening symptoms. Pt denies any tremor during the day Pt has . Pt pagan s chronic pain from neck and back and diffuse stiffness. Pt does not want chemo therapy gas Additional infor mation: pt notices some abd bloating and gas recently. Pt denies any nausea, vomiting, dairrhea, NO blood in stool. GERD1 Pt has GERD. Pt had benign EGD. Pt takes zantac and doing ok. Pt denies any abd pain. Pt deneis any nauea, vomiting. rest less leg Pt has rest less syndrome. Pt states that he canot stop moving his leg and arm at night. Pt has been taking requip low dose which did help but not anymore Pt has . Pt pagan s stiffness of neck and back pain. Pt takes norco and flexeril and doing ok. Pt denies any worsening pain or stiffness. proteinuria1 Pt states that h is dry cough stopped with losartan. Pt is o losartan. Pt is off lisinopril cough Additional infor mation: Pt states that dry cough from lisinopril resolved. Pt c/o chest congestion some mild cough and sinus congestion for several days. Pt denies any fever, chest pain, SOB. proteinuria His BP has been stable without any meds. Pt does have mild proteinruia. Pt is seeing nephrology chronic pain Pt has chronic b ack and neck stiffness and pain due to . Ptdoes not want treatement anymore at this point. Ptis taking norco and flexeril and doign ok Pt denies any worsening symptoms pt denies any loss of bowl or bladde control cough1 Pt has been havi ng dry cough for several months. Pt denies any phlegm. Pt denies any chest pain or sob. The cough is throughout the day Pth as anklosis spondylosis. Pt takes norco and flexeril for pain. Pt deferred further treatment. Pt denies any worsenign symptoms HTN Pt has mild bore rline HTN and proteinuira. Pt is on lisinoril but is causing cough RLS1 PT has restless leg syndrome Pt is takign requip and is doing well Pt denies any shaky leg at night HTN Pt takes lisinor pil and his BP is stable today .Pt denies any chest pain or headache Pt has AK. Pt ta kes norco and flexeril for pain Pt has neck and back stiffness. Pt does not want any further treatment due to late stage of the disease GERD1 Pt doing ok with zantac. Pt denies any abd pain or any GERD symptoms chronic pain1 Pt has chronic n shankar and back pain due to . Pt has stiffness. Pt takes norco and flexeril and doing ok. Pt denies any worsening pain. Pt denies any loss of bowel or bladder control. Pt denies any sciatica. HLP Pt has HLP. Pt h as mildly elevated TG Pt eats a lot of fried food and bread, etc thyroid Pt has mildly lo w thyroid on lab. Pt denies any fatigue. Pt denies any weight gain HTN Pt has mild HTN. Pt takes lisinpirl. His BP is borderline today. No chest pain or headache PHysical Pt needs annual physical. Pt has AK with chornic neck and back stiffness and pain. Pt does not want to be treated anymore by rheumatology. Pt takes norco and flexeril and doing ok currently. Pt also has restless leg syndrome and he takes requip and doing ok. Pt also has mild proteinuria. Pt is on lisinopirl. Pt has normal renal ultrasound Pt denies any other complaints HTN Pt has mild HTn and and proteinuria. Pt takes lisinoril and his bP is stable. Pt has normal Urine output chronci pain Pt has chronic n shankar and back pain and stiffiness due to . Pt takes norco and flexeril for pain and doing ok. pt denies any worsening pain shoulder pain1 Pt c/o right bic ep pain and some small mass. Pt has benign MRI. Pt denies any worsening pain. Pt failed PT restless leg Pt has chronic r estless leg syndrome Pt takes requip and is helping Pt denies any abnormal leg movement at night chronic pain Pt has chronic n shankar and back pain due to . Pt has stiffness. Pt denies any worsening pain. Pt takes norco and flexeril and doing ok bicep pain Pt c/o pain and nodule around right bicep area for 3 years. Pt has been doing PT. Pt states that he has right shoulder pain as well. Pt states that his right bicep pain seems worse lately, especially when he tries to lift anything proteinuria Pt has mild prot einuria. Pt had normal renal ultrasound. Pt also has mild HTN. Pt denies any urinary output problem shoulder pain1 Pt has chronic r ight shoulder pain, Getting better with PT. Pt has mild arthritis. proteinuria1 Pt has chronic p roteinia. Pt sees nephrology and got some urine test and blood test doen recently. Pt did not do ultrasound. Pt was told by nephrology that no need for ultrasound? chronic pain Pt has chronic n shankar and back stiffiness and pain due to AK. Pt does not want further treatment. Pt takes norco and flexeril for pain and doing ok. Pt denies any worsenign pain vitamin D Pt has low vitam in D. Pt takes vitamin D supplement. Pt denies any history of fracture chronic pain Pt has chronic A K and neck and back pain and stiffness. pt atkes norco and flexeril and doing ok pt denies any worsening pain restless leg1 Pt has restless leg syndrome. Pt states that he is doing much better with requip Pt may sleeps well all night without leg movement shoulder pain Location: should er. Additional information: Pt has right shoulder pain. Pt has some arthritis on xrays. Pt has not done PT yet. Pt denies any injury or worsening pain. proteinuria Pt has mild prot einuria on urine. Pt denies any flank pain chronic pain Pt has chronic n shankar and back pain due to anklosing spondylosis. Pt feels neck and back stiffness. Pt states that his pain seems worse during cold weather Pt does not want to see rheumatology anymore since they told him there is nothing they can do restless leg1 Pt c/o frequent leg movement at night for several months. Pt has been using his g/f muscle relaxant, which helps. Pt states that he has the urge to move his leg all the time, especially at night shoulder pain1 Pt c/o right mima ulder pain for several years. Pt states that it hurts worse when he tries to throw the ball. Pt c/o stiffness. Pt fell on right shoulder several years ago. Pt denies any radiculopathy chronic apin1 Pt has chronic b ack and neck pain and stiffness due to AK. Pt deferred any treatment at this point. pt denies any scaitica. Pt denies any numbness. Pt has 6/10 pain daily. Pt denies any worsening pain GERD1 Pt doing ok with zantac. Pt denies any abd pain or any GERd symptoms bone density1 Pt had normal nick ne density study recently prostate exam1 Pt has not done prostate exam yet Pt wants to get it done today. Pt denies any urinary sytmpoms Pt has AK. Pt pagan s chornic neck and back pain Pt does not want further medical treatment at this point. Pt takes mobic and norco and is doing ok. Pt denies any worsening pain proteinuria1 Pt has mild prot einuria. Pt has normal renal function. Pt has appointment with nephrology in 4 weeks. gERD1 Pt has GERD. Pt has not had any GERd daily Pt has been taking omeprzole daily for at least 6 months Pt denies any abd apin AK Pt has chronic a nklosis spondylosis. Pt has chronic neck and back stiffness and pain. Pt takes mobic and norco daily. Pt denies any worsening pain. Pt jennifer any sciatica HLP Pt has elevated TG on lab. Pt is trying low fat and low carb diet GERD Additional infor mation:Pt has GERD. Pt takes omerpzole daily. Pt denies any abd pain or any GERD symptoms. proteinuria Pt has mild prot einuia in his urine. Renal function normal. chest pain The patient pres ents with a complaint of chest pain. Pt denies any further chest pain. Pt had negative cardiac stress echo and chest xray. leg pain Additional infor mation: Pt has benign villa cyst and negative venous doppler study. Pt denies any claudication. Pt is not very clear about his symptoms. Pt denies any calf pain. Pt denies any numbness. chest pain The patient pres ents with a complaint of chest pain. The patient denies dyspnea, fatigue, palpitations and vomiting. He has a history of former tobacco use. The patient denies any abdominal pain or claudication. Pt c/o dull chest pain on and off for 3-4 weeks. Pt notices pain with lifting. Pt denies any diaphoresis, Pt notices some radiation to left arm. Pt denies any acute pain. AK Pt has AK. Pt de cides against treatment at this point. Pt c/o chronic neck and back pain and stiffiness leg pain Additional infor mation: Pt notices bilateal leg pain and notices muscle spasm and node up sometimes. Pt denies any calf pain. Pt denies any loss of bowel or bladder control. Pt denies any recent travel or bedrest. Pt states that both her upper anterior thigh feels noded up sometimes and he has to massage it. Instructions Date Instruction Additional Infor mation Weight gain advised Related to B david mass index (BMI) 22.0-22.9, adult Increase physical activity Relat ed to Ankylosing spondylitis of multiple sites in spine Weight gain advised Related to B david mass index (BMI) 22.0-22.9, adult Increase physical activity Relat ed to Hematuria Weight gain advised Related to B david mass index (BMI) 21.0-21.9, adult Avoid provocative fo ods: citrus, alcohol, coffee, chocolate, mints. Related to Gastro-esophageal reflux disease without esophagitis Eat smaller meals, n o eating three hours prior to bedtime. Related to Gastro-esophageal reflux disease without esophagitis Elevate head of bed prior to sle ep. Related to Gastro-esophageal reflux disease without esophagitis Increase physical activity Relat ed to Crohn's disease of large intestine without complications Increase physical activity Relat ed to Crohn's disease of large intestine without complications Increase physical activity Relat ed to Abnormal weight loss Increase physical activity Relat ed to Crohn's disease of large intestine without complications Increase physical activity Relat ed to Crohn's disease of large intestine without complications Perform monthly breast self exam s. Related to Gynecomastia Increase physical activity. Rela low to Gynecomastia Increase activity. Related to Es sential (primary) hypertension Follow a low sodium diet. Relate d to Essential (primary) hypertension Avoid provocative fo ods: citrus, alcohol, coffee, chocolate, mints. Related to GERD w/o esophagitis Eat smaller meals, n o eating three hours prior to bedtime. Related to GERD w/o esophagitis Elevate head of bed prior to sle ep. Related to GERD w/o esophagitis Increase physical activity Relat ed to Chronic pain syndrome Avoid provocative fo ods: citrus, alcohol, coffee, chocolate, mints. Related to GERD w/o esophagitis Eat smaller meals, n o eating three hours prior to bedtime. Related to GERD w/o esophagitis Elevate head of bed prior to sle ep. Related to GERD w/o esophagitis Avoid provocative fo ods: citrus, alcohol, coffee, chocolate, mints. Related to Gastro-esophageal reflux disease without esophagitis Eat smaller meals, n o eating three hours prior to bedtime. Related to Gastro-esophageal reflux disease without esophagitis Elevate head of bed prior to sle ep. Related to Gastro-esophageal reflux disease without esophagitis Increase activity. Related to Hy perlipidemia Follow a low sodium diet. Relate d to Hyperlipidemia Increase physical activity Relat ed to Proteinuria Weight management Related to Pro teinuria Increase physical activity Relat ed to Proteinuria Weight management Related to Pro teinuria Follow a low sodium diet. Relate d to Essential (primary) hypertension Increase physical activity Relat ed to Chronic pain syndrome Prescribed dietary intake Relate d to Body mass index (BMI) 26.0-26.9, adult Special diet education Related t o Body mass index (BMI) 26.0-26.9, adult Increase physical activity Relat ed to Ankylosing spondylitis of multiple sites in spine Increase physical activity Relat ed to Encounter for general adult medical exam w abnormal findings Weight management Related to Enc ounter for general adult medical exam w abnormal findings Prescribed Activity and Exercise Education Related to Dietary Surveillance and Counseling Prescribed Diet Educ ation/Lifestyle Education Regarding Diet Related to Dietary Surveillance and Counseling Increase physical activity Relat ed to Encounter for general adult medical exam w abnormal findings Weight management Related to Enc ounter for general adult medical exam w abnormal findings Prescribed Activity and Exercise Education Related to Dietary Surveillance and Counseling Prescribed Diet Educ ation/Lifestyle Education Regarding Diet Related to Dietary Surveillance and Counseling Increase physical activity Relat ed to Chronic pain syndrome Prescribed Activity and Exercise Education Related to Dietary Surveillance and Counseling Prescribed Diet Educ ation/Lifestyle Education Regarding Diet Related to Dietary Surveillance and Counseling Increase physical activity Relat ed to Solitary lung nodule Increase physical activity Relat ed to Ankylosing spondylitis of multiple sites in spine Increase physical activity Relat ed to Restless Legs Syndrome Increase activity. Related to Es sential (primary) hypertension Follow a low sodium diet. Relate d to Essential (primary) hypertension Increase physical activity Relat ed to Proteinuria Increase physical activity Relat ed to Ankylosing spondylitis of multiple sites in spine Increase physical activity Relat ed to Ankylosing spondylitis of multiple sites in spine Prescribed Activity and Exercise Education Related to Dietary Surveillance and Counseling Prescribed Diet Educ ation/Lifestyle Education Regarding Diet Related to Dietary Surveillance and Counseling Assessments Type Assessment Date assessment Chronic pain syndrome assessment Hypothyroidism assessment Mixed hyperlipidemia assessment Pain in left wrist assessment GERD w/o esophagitis Mental Status Date Cognitive Assessment Orientation - [place] ed to time, place, person, situation.
== END 2025-04-01 08:26 | disposition home or self-care (01) ==
PROVIDERS: PCP Emergency Medicine; Visit Provider Plastic Surgery
DX: M19.032 Primary osteoarthritis, left wrist (principal)
CPT/HCPCS: 73110

== ENCOUNTER 2025-08-06 06:58 | Outpatient (CLI) | payer MEDICARE, MEDICAID, SELFPAY ==
--- NOTE | ~2025-08-06 | CT_ITS ---
EXAMINATION: CT lung screening DATE: 08/06/2025 07:11 INDICATION: Nicotine dependence TECHNIQUE: Computed tomography (CT) of the chest was performed without intravenous contrast. The dose-length product was 98.90 mGy-cm. Automated exposure control and iterative reconstruction technique were employed. COMPARISON: CT dated 04/30/2024 FINDINGS: Heart size normal. Elevated right diaphragm. No significant pleural or pericardial effusion. Borderline sized mediastinal lymph nodes, likely reactive. No endobronchial lesions. Dependent atelectasis. Calcified granuloma left mid thorax. No suspicious pulmonary nodules or masses. There is gynecomastia. 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 IMPRESSION: 1. Lung-RADS category 1: Negative. Continue annual screening with noncontrast low-dose chest CT in 12 months. Reviewed, dictated and finalized at location I. STAR IMPRESSION: 1. Lung-RADS category 1: Negative. Continue annual screening with noncontrast l ow-dose chest CT in 12 months.
--- OUTSIDE RECORDS SUMMARY | 2025-08-06 07:02 | XMS_ITS | Clinical Summary ---
Author Organization [facility] Address [address] [facility] [address] [place] [address] Phone Care Team Providers Care Religious Studies Professor Name Role Phone Titus Dariusz Primary Care Provider [phone] Jean Corral MD Unavailable [phone] Allergies No known active allergies Medications HYDROcodone-shae [...] Encounters Date Type Department Care Team Description 07/05/2025 9:15 AM CDT Clinical Support [facility] [address] [phone] Nurse, [facility] [place] B12 deficiency (Primary Dx) 07/05/2025 Travel 06/03/2025 12:15 PM CDT Clinical Support [facility] [address] [phone] Nurse, [facility] [place] B12 deficiency (Primary Dx) 06/03/2025 Travel 05/13/2025 11:15 AM CDT Clinical Support [facility] [address] [phone] Nurse, [facility] [place] B12 deficiency (Primary Dx) 05/13/2025 Travel from Last 3 Months Immunizations Immunization Administration Dates Next Due Covid-19 Vaccine, Vector-nr, Rs-ad26, Pf, 0.5 Ml ([employer] 08/12/2021,12/07/2020 HEP A/HEP B Combined Vaccine 06/12/2020 [...] Years Used Date Smoking Tobacco: Former Cigarettes 0 Q uit: 2010 Smokeless Tobacco: Never Tobacco [...] Comments Blood Pressure 120/80 10/05/2024 11:52 AM DEPARTMENT SECRETARY Pulse 84 10/05/2024 11:52 AM DEPARTMENT SECRETARY Temperature 36.7 C (98 F) 10/05/2024 11:52 AM DEPARTMENT SECRETARY Respiratory Rate 18 10/05/2024 11:52 AM DEPARTMENT SECRETARY Oxygen Saturation 95% 10/05/2024 11:52 AM DEPARTMENT SECRETARY Inhaled Oxygen Concentration - - Weight 84.4 kg (186 lb) 10/05/2024 11:52 AM DEPARTMENT SECRETARY Height 180.3 cm (5' 11) 10/05/2024 11:52 AM DEPARTMENT SECRETARY Body Mass Index 25.94 10/05/2024 11:52 AM DEPARTMENT SECRETARY Plan of Treatment Upcoming Encounters Date Type Department Care Team (Late st Contact Info) Description 10/04/2025 10:45 AM DEPARTMENT SECRETARY Lab [facility] [address] [phone] Lab, [facility] 10/04/2025 11:00 AM DEPARTMENT SECRETARY Office Visit [facility] [address] [phone] Jean Corral MD [address] [place] [phone] 10/04/2025 11:15 AM DEPARTMENT SECRETARY Clinical Support [facility] [address] [phone] Nurse, Becki [facility] Health Maintenance Due Date Last Done Comments Hepatitis C Virus (HCV) Screening 1959 Cologuard 2004 Immunochemical Fecal Occult Blood 2004 Zoster Immunization (1 of 2) 2009 PSA Discussion 2014 Medicare Initial AWV [id number] 04/05/2017 Hepatitis B Immunization (2 of 3 - 19+ 3-dose series) 07/10/2020 06/12/2020, 06/12/2020 AAA Screening Ultrasound 2024 SARS-COV-2 Immunization ( season) 2025 05/31/2023, 06/14/2022, 08/12/2021, Additional history exists Td Immunization Every 10 Years (Adults With 1 Tdap) 12/08/2026 12/08/2016 Colonoscopy 01/04/2035 01/04/2025, 03/03/2024, 08/11/2021, Additional history exists Colorectal Cancer Screening 01/04/2035 DTaP/Tdap/Td Immunization Discontinued 12/08/2016 Influenza Immunization Completed , 05/31/2023, 06/14/2022, Additional history exists Pneumococcal Immunization (50+ years) Completed 06/27/2025, 01/28/2021, 06/12/2020 Pneumococcal Immunization Combined Discontinued 06/27/2025, 01/28/2021, 06/12/2020 Respiratory Syncytial Virus (RSV) Immunization (Adult) Completed 06/27/2025 Human Papillomavirus (HPV) Immunization Aged Out No longer eligible based on patient's age to complete this topic Meningococcal Immunization (ACWY) Aged Out No longer eligible based on patient's age to complete this topic Rotavirus Immunization Aged Out No lo nger eligible based on patient's age to complete this topic [place] [address] MEDICARE C [employer] Care Teams Religious Studies Professor Relationship Specialty Start Date End Date Dariusz Titus [address] [place] [address] PCP - General Family Medicine 02/29/20 Jean Corral MD [address] [place] [phone] Consulting Physician Oncology 10/30/21
--- OUTSIDE RECORDS SUMMARY | 2025-08-06 07:02 | XMS_ITS | Clinical Summary ---
Author Organization [facility] Address [address], [place] [address] Phone Care Team Providers Care Street Contractor Name Role Phone Unavailable Primary Care Provider Unavailabl e Allergies No known active allergies Medications losartan (COZAAR) 25 MG tablet 1 tab by mouth daily 0 01/31/2018 Active aspirin (ASPIRIN ADULT LOW STRENGTH) 81 MG chewable tablet one tab daily 0 01/05/2017 Active cyclobenzaprine (FLEXERIL) 10 MG tablet 1 tab by mouth twice daily 0 01/31/2018 Active ergocalciferol (VITAMIN D2) 63175 units capsule one capsule weekly 0 01/05/2017 [...] of 2 - PCV) 2009 Influenza Vaccine (#1) 2025 09/08/2015
--- OUTSIDE RECORDS SUMMARY | 2025-08-06 07:02 | XMS_ITS | Clinical Summary ---
Author Organization [facility] Address [address] [place] [address] Care Team Providers Care Product Trainer Name Role Phone Dariusz Titus MD Primary Care Provider [phone] Social History Tobacco Use Types Packs/Day Years [...] of 2) 2009 COVID-19 Vaccine ( - 2024-2 6 season) 2025 Influenza Adult (#1) 2025 RSV Immunization or 60+ Years (1 - 1-dose 75+ series) 2034 Hepatitis A Vaccines Aged Out No long er eligible based on patient's age to complete this topic Meningococcal B Vaccine Aged Out No l onger eligible based on patient's age to complete this topic Meningococcal Vaccine Aged Out No tree chely eligible based on patient's age to complete this topic RSV Immunizations Under 20 Months Aged Out No longer eligible based on patient's age to complete this topic Care Teams Product Trainer Relationship Specialty Start Date End Date Dariusz Titus MD PCP - General 03/07/14
--- OUTSIDE RECORDS SUMMARY | 2025-08-06 07:02 | XMS_ITS | Encounter Summary ---
Author Organization [facility] Address [address] [place] [address] Phone Care Team Providers Care Photo Machine Operator Name Role Phone Dariusz Titus Primary Care Provider [phone] Jean Corral MD Unavailable [phone] Encounter Details Date Type Department Care Team (Late st Contact Info) Description 01/16/2021 Telephone [facility] [place] [address] [place] [address] Jean Corral MD [address] [place] [phone] Social History Tobacco Use Types Packs/Day Years Used Date Smoking Tobacco: Former Cigarettes 0 Q uit: 2010 Smokeless Tobacco: Never Alcohol [...] st Contact Info) Description 10/04/2025 10:45 AM TRAINING PROFESSIONAL Lab [facility] [address] [phone] Lab, [facility] 10/04/2025 11:00 AM TRAINING PROFESSIONAL Office Visit [facility] [address] [phone] Jean Corral MD [address] [place] [phone] 10/04/2025 11:15 AM TRAINING PROFESSIONAL Clinical Support [facility] [address] [phone] Nurse, [facility] documented as of this encounter Visit Diagnoses Not on filedocumented in this encounter Additional Health Concerns Assessment Noted Time PHQ-9 Depression Total Score: 0 07/18/20 20 8:20 AM TRAINING PROFESSIONAL documented as of this encounter Care Teams Photo Machine Operator Relationship Specialty Start Date End Date Dariusz Titus [address] [place] [address] PCP - General Family Medicine 02/29/20 Jean Corral MD [address] [place] [phone] Consulting Physician Oncology 10/30/21 documented as of this encounter
--- OUTSIDE RECORDS SUMMARY | 2025-08-06 07:02 | XMS_ITS | Clinical Summary ---
Author Organization [facility] [employer] Address [address] [place] [address] Care Team Providers Care Tube Carrier Name Role Phone Dariusz Titus MD Primary Care Provider [phone] Source Comments [facility] [employer],non-owned Affiliates and Associated Physician Practices is amultiple site organization consisting of ambulatory clinics and hospital sitesin [place], [place], [place] and [place]. This disclosure is being madepursuant to the Care Everywhere program and may not contain all information available regarding this patient. Last updated 18.[facility] [employer] Allergies No known active allergies Medications * Be aware that medications may not be up to date on this document. Alwaysverify current medications with the patient. aspirin (ASPIRIN) 81 MG chew tablet Take 1 (one) tablet by mouth once daily 017 Active atorvastatin (LIPITOR) 10 MG tablet Take 1 (one) tablet by mouth once daily 020 Active cyclobenzaprin e (FLEXERIL) 10 MG tablet Take 1 (one) tablet by mouth as needed Active losartan (COZAAR) 25 MG tablet Take 1 (one) tablet by mouth once daily 020 Active rOPINIRole (REQUIP) 1 MG tablet Take 1 (one) tablet by mouth once daily 020 Active HYDROcodone-ac etaminophen (NORCO) 7.5-325 MG tablet Take 1 (one) tablet by mouth 3 times daily as needed For pain. 021 Active cyanocobalamin (VITAMIN B-12) injection Inject into muscle every 30 days Active pantoprazole EC (PROTONIX) 40 MG tablet Take 1 (one) tablet by mouth once daily 90 tablet 3 022 Active Vitamin D, Ergocalciferol , 08579 units CAPSIndication s:Vitamin D deficiency Take 1 capsule by mouth every 7 days 8 capsule 024 Active Synthroid 25 MCG tablet Take 1 (one) tablet by mouth every 24 hours 024 Active famotidine (Pepcid) 20 MG tablet Take 1 (one) tablet by mouth 2 times daily Active naloxone HCl (Narcan) 4 MG/0.1ML nasal spray [place] 1 (one) spray into the nose as needed 023 Active multivitamin daily tablet Take 1 (one) tablet by mouth daily with food Active xujlk-0-pzou ethyl esters (Lovaza) 1 g capsule Take 1 (one) capsule by mouth once daily 025 Active risankizumab-r zaa (Skyrizi) 360 MG/2.4ML SOCTIndication s:Crohn's disease of small intestine with intestinal obstruction (HCC) ADMINISTER 360 MG UNDER THE SKIN VIA ON BODY INJECTOR EVERY 8 WEEKS 1 mL 5 025 Active risankizumab-r zaa 360 MG/2.4ML SOCTIndication s:Crohn's Disease Inject 2.4 mL subcutaneously Every 8 Weeks Reasons: Crohn's Disease 2.4 mL 5 024 2024 Discontinued Active Problems Problem Noted Date Diagnosed Date Ankylosing spondylitis of multiple sites in 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 e 05/29/2021 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 05/29/2021 Crohn's disease of small int estine with intestinal obstruction 06/25/2020 Encounters Date Type Department Care Team Description 07/20/2025 Refill [facility] - GI [address] [place] [phone] Julianna Magallanes MD Refill Request 06/03/2025 1:45 PM CDT - 06/03/2025 11:59 PM CDT Hospital Encounter [facility] [address] [place] [phone] Discharge Disposition: Home or Self Care 06/03/2025 1:00 PM CDT Office Visit [facility] - GI [address] [place] [phone] Julianna Magallanes MD Crohn's disease of both small and large intestine without complication (HCC) (Primary Dx) 06/03/2025 Travel from Last 3 Months Immunizations Immunization [...] Types Packs/Day Years Used Date Smoking Tobacco: Every Day Cigarettes 0.5 42 Started: 06/06/1981; Last attempted to quit: 06/06/2023 Smokeless Tobacco: Never Tobacco Cessation:Ready to Q uit: Not Asked; Counseling Given: Not Answered Comments:quit 2013 started pack 1 year pack/week started smoking again Alcohol Use Standard Drinks/Week Comments Yes 4 [...] Sign Reading Time Taken Comments Blood Pressure 125/79 06/03/2025 1:22 PM CDT Pulse 71 06/03/2025 1:22 PM CDT Temperature 36.5 C (97.7 F) 06/03/2025 1:22 PM CDT Respiratory Rate 10 01/04/2025 11:30 AM CDT Oxygen Saturation 100% 06/03/2025 1:22 PM CDT Inhaled Oxygen Concentration - - Weight 82.6 kg (182 lb 3.2 oz) 06/03/2025 1:22 P M CDT Height 182.9 cm (6') 06/03/2025 1:22 PM CDT Body Mass Index 24.71 06/03/2025 1:22 PM CDT Plan of Treatment Upcoming Encounters Date Type Department Care Team (Late st Contact Info) Description 12/02/2025 8:00 AM CDT Office Visit [facility] - GI [address] [place] [phone] Julianna Magallanes MD [address] [place] [address] Health Maintenance Due Date Last Done Comments COLOGUARD (AGES 45-75) - COLON CA SCREENING 1959 CT COLONOGRAPHY - COLON CA SCREENING 1959 FIT - COLON CA SCREENING 1959 FLEX SIG - COLON CA SCREENING 1959 LUNG CANCER SCREENING 2009 ZOSTER VACCINE (1 of 2) 2009 HEPATITIS B VACCINE (2 of 3 - Hep B Twinrix 3-dose series) 07/10/2020 06/12/2020 PNEUMOCOCCAL VACCINE 50+ (2 of 2 - PCV) 01/28/2022 01/28/2021, 06/12/2020 AAA SCREENING 2024 DEPRESSION SCREENING 09/05/2024 MEDICARE AWV CALENDAR YEAR 2024 COVID-19 VACCINE ( season) 2025 05/31/2023, 06/14/2022, 08/12/2021, Additional history exists INFLUENZA VACCINE (#1) 2025 , 06/14/2022, 05/29/2021, Additional history exists DTAP/TDAP/TD VACCINES (2 - Td or Tdap) 12/08/2026 12/08/2016 Respiratory Syncytial Virus (RSV) Vaccine Pt: or over 60 yrs (1 - 1-dose 75+ series) 2034 COLON MONITORING 01/04/2035 01/04/2025, 10/2024, 11/30/2023, Additional history exists COLONOSCOPY - COLON CA SCREENING 01/04/2035 01/04/2025, 01/04/2025, 11/30/2023, Additional history exists Colorectal Cancer Screening 01/04/2035 HEPATITIS C SCREENING Completed 10/06/2020 HIB VACCINE Aged Out [...] Patient-Stated? Author Medication Management General On track( 1:17 PM CDT) No Lleia Dailey RN Note: Expected end date: ongoing Interventions: Take all medications as prescribed Let your doctor know right away about any changes in your medications Make sure to request a refill of your medication at least one week prior to your last dose Safety General On track( 1:17 PM CDT) No Isis Gardiner RN Note: Expected end date: ONGOING Interventions: Keep personal items within easy reach Use some light at night in your room Keep walking paths clutter free and clear Maintain an unobstructed path to the bathroom Procedures Procedure Name Priority Date/Time Associated Diagnosis Comments VITAMIN B12 Routine 06/03/2025 2:04 PM CDT Crohn's disease of both small and large intestine without complication (HCC) VITAMIN D 25-HYDROXY Routine 06/03/2025 2:04 PM CDT Crohn's disease of both small and large intestine without complication (HCC) IRON + TRANSFERRIN PANEL Routine 06/03/2025 2:04 PM CDT Crohn's disease of both small and large intestine without complication (HCC) C-REACTIVE PROTEIN Routine 06/03/2025 2: 04 PM CDT Crohn's disease of both small and large intestine without complication (HCC) COMPREHENSIVE METABOLIC PANEL Routine 06/03/2025 2:04 PM CDT Crohn's disease of both small and large intestine without complication (HCC) CBC W AUTO DIFFERENTIAL Routine 06/03/2025 2:04 PM CDT Crohn's disease of both small and large intestine without complication (HCC) ENDOSCOPY, COLON, DIAGNOSTIC Routine 01/04/2025 10:19 AM CDT EXPOSURE PANEL SOURCE STAT 10/06/2020 12:27 PM CLINICAL AUDIOLOGIST Crohn's disease of both small and large intestine with fistula from Last 3 Months or Most Recently Relevant to Health Maintenance Results * C-REACTIVE PROTEIN (06/03/2025 2:04 PM CDT) C-Reactive Protein <0.5 <=0.5 mg/dL 06/03/2025 3:36 PM CDT [facility] Blood BLOOD SPECIMEN / Unknown Lab Venipuncture / Unknown 06/03/2025 2:04 PM CDT 06/03/2025 2:49 PM CDT Julianna Magallanes MD LAB - CHEMISTRY ORDERABLES Fin al Result [address] [address], [facility] [phone] * VITAMIN D 25-HYDROXY (06/03/2025 2:04 PM CDT) Pathologist [facility] [place] Vitamin D, 25 Hydroxy 46.4 30.0 - 80.0 ng/mL 06/03/2025 4:03 PM CDT [facility] Comment: The recommendations for 25-Hydroxy Vitamin D clinical decision points are as follows: Deficient: <20.0 ng/mL Insufficient: 20.0 - 29.9 ng/mL Sufficient: 30.0 - 100.0 ng/mL Potential Toxicity: >100 ng/mL Reference: The Endocrine Society Clinical Practice Guidelines. 2011 If the 25-Hydroxy Vitamin D results are inconsitent with clinical evidence, it is recommended that follow-up testing using a method such as LC/MS/MS be performed to confirm the result. Blood BLOOD SPECIMEN / Unknown Lab Venipuncture / Unknown 06/03/2025 2:04 PM CDT 06/03/2025 2:49 PM CDT Julianna Magallanes MD LAB - CHEMISTRY ORDERABLES Fin al Result Performing Organization Address City/[facility]/ZIP Co de Phone Number [address] [address], [facility] [phone] * (ABNORMAL) CBC W/ DIFFERENTIAL (06/03/2025 2:04 PM CDT) Pathologist [facility] [place] WBC 8.1 4.0 - 10.7 x10E9/L 06/03/2025 3:01 PM CDT [facility] RBC Count 4.91 4.30 - 5.80 x10E12/L 06/03/2025 3:01 PM CDT [facility] Hemoglobin 16.0 13.3 - 17.5 g/dL 06/03/2025 3:01 PM CDT [facility] Hematocrit 45.5 38.7 - 51.1 % 06/03/2025 3:01 PM CDT [facility] MCV 92.7 80.0 - 98.0 fL 06/03/2025 3:01 PM [facility] MCH 32.6 26.7 - 33.6 pg 06/03/2025 3:01 PM [facility] MCHC 35.2 31.7 - 36.3 g/dL 06/03/2025 3:01 PM [facility] RDW-CV 12.9 11.3 - 14.8 % 06/03/2025 3:01 PM [facility] Platelet Count 290 150 - 420 x10E9/L 06/03/2025 3:01 PM [facility] MPV 9.5 7.8 - 11.4 fL 06/03/2025 3:01 PM [facility] Neutrophil % 63.1 41.0 - 74.0 % 06/03/2025 3:01 PM [facility] Lymphocyte % 18.6 17.0 - 47.0 % 06/03/2025 3:01 PM [facility] Monocyte % 12.5(H) 3.0 - 11.0 % 06/03/2025 3:01 PM [facility] Eosinophil % 4.2 0.0 - 7.0 % 06/03/2025 3:01 PM [facility] Basophil % 0.9 0.0 - 1.6 % 06/03/2025 3:01 PM [facility] Immature Granulocytes % 0.7 0.0 - 1.0 % 06/03/2025 3:01 PM [facility] Neutrophil Absolute 5.10 1.60 - 7.50 x10E9/L 06/03/2025 3:01 PM [facility] Lymphocyte Absolute 1.50 1.00 - 4.40 x10E9/L 06/03/2025 3:01 PM [facility] Monocyte Absolute 1.01(H) 0.15 - 1.00 x10E9/L 06/03/2025 3:01 PM [facility] Eosinophil Absolute 0.34 0.00 - 0.60 x10E9/L 06/03/2025 3:01 PM [facility] Basophil Absolute 0.07 0.00 - 0.13 x10E9/L 06/03/2025 3:01 PM [facility] Blood BLOOD SPECIMEN / Unknown Lab Venipuncture / Unknown 06/03/2025 2:04 PM CDT 06/03/2025 2:49 PM CDT us Julianna Magallanes MD LAB - HEMATOLOGY ORDERABLES Fi nal Result [address] [address], [facility] [phone] * (ABNORMAL) COMPREHENSIVE METABOLIC PANEL (06/03/2025 2:04 PM CDT) BUN 14 7 - 26 mg/dL 06/03/2025 3:34 PM [facility] Creatinine 0.74 0.71 - 1.16 mg/dL 06/03/2025 3:34 PM [facility] Sodium 138 136 - 145 mmol/L 06/03/2025 3:34 PM [facility] Potassium 4.6(H) 3.5 - 4.5 mmol/L 06/03/2025 3:34 PM [facility] Chloride 103 98 - 107 mmol/L 06/03/2025 3:34 PM [facility] CO2 28 22 - 29 mmol/L 06/03/2025 3:34 PM [facility] Glucose 87 70 - 99 mg/dL 06/03/2025 3:34 PM [facility] Calcium 9.1 8.4 - 10.2 mg/dL 06/03/2025 3:34 PM [facility] Protein Total 7.8 6.0 - 8.3 g/dL 06/03/2025 3:34 PM [facility] Albumin 4.2 3.4 - 5.0 g/dL 06/03/2025 3:34 PM [facility] Bilirubin Total 0.9 0.2 - 1.2 mg/dL 06/03/2025 3:34 PM [facility] Alkaline Phosphatase 65 40 - 150 U/L 06/03/2025 3:34 PM [facility] ALT 15 5 - 55 U/L 06/03/2025 3:34 PM CDT [facility] AST 18 5 - 34 U/L 06/03/2025 3:34 PM CDT [facility] Anion Gap 7 6 - 16 06/03/2025 3:34 PM CDT [facility] BUN/Creatinine Ratio 19 7 - 23 06/03/2025 3:34 PM CDT [facility] Osmolality Calculated 286 275 - 295 mOsm/kg 06/03/2025 3:34 PM CDT [facility] Albumin/Globulin Ratio 1.2 1.1 - 2.3 06/03/2025 3:34 PM T [facility] eGFR by CKD-EPI >90 >=90 mL/min/1.7 3 m2 06/03/2025 3:34 PM T [facility] Comment:Estimated Glomerular Filtration Rate (eGFR) calculated using the CKD-EPI Creatinine Equation (2020), per the National Kidney Foundation and [employer] recommendations. Blood BLOOD SPECIMEN / Unknown Lab Venipuncture / Unknown 06/03/2025 2:04 PM CDT 06/03/2025 2:49 PM CDT Julianna Magallanes MD LAB - CHEMISTRY ORDERABLES Fin al Result [address] [address], [place] [phone] * (ABNORMAL) VITAMIN B12 (06/03/2025 2:04 PM CDT) Vitamin B12 >2,000(H) 213 - 816 pg/mL 06/03/2025 4:03 PM CDT [facility] Blood BLOOD SPECIMEN / Unknown Lab Venipuncture / Unknown 06/03/2025 2:04 PM CDT 06/03/2025 2:49 PM CDT us Julianna Magallanes MD LAB - CHEMISTRY ORDERABLES Fin al Result [address] [address], [place] [phone] * (ABNORMAL) IRON + TRANSFERRIN PANEL [w/Transferrin Sat % + TIBC] (06/03/2025 2:04 PM CDT) Iron 191(H) 50 - 175 ug/dL 06/03/2025 3:14 PM CDT [facility] Transferrin 288 174 - 382 mg/dL 06/03/2025 3:14 PM CDT [facility] Transferrin Saturation % 53(H) 16 - 50 % 06/03/2025 3:14 PM CDT [facility] TIBC Calculated 360 240 - 450 ug/dL 06/03/2025 3:14 PM CDT [facility] Blood BLOOD SPECIMEN / Unknown Lab Venipuncture / Unknown 06/03/2025 2:04 PM CDT 06/03/2025 2:35 PM CDT Julianna Magallanes MD LAB - CHEMISTRY ORDERABLES Fin al Result [address] [address], [facility] [phone] * ENDOSCOPY, COLON, DIAGNOSTIC (01/04/2025 10:19 AM [...] Findings: There was evidence of a prior [id number] ileo-colonic anastomosis at the anastomosis at a [...] entire procedure. Procedure Code(s): --- Professional --- 29131, Colonoscopy, flexible; with biopsy, single or multiple Diagnosis Code(s): --- Professional --- K52.9, Noninfective gastroenteritis and colitis, unspecified Z98.0, Intestinal bypass and anastomosis status K50.80, Crohn's disease of both small and large intestine without complications CPT copyright 2021 [employer]. All rights reserved. The codes documented in this report are preliminary and upon medical staff services coordinator review may be revised to meet current compliance requirements. Julianna Magallanes MD 01/04/2025 11:05:49 AM Note Initiated On: 01/04/2025 10:19 AM Number of Addenda: [id number] [place] [address] PROVATION 01/04/2025 10:1 9 AM CDT us Julianna Magallanes MD GI PROCEDURE ORDERABLES Edited Result - Final [facility] * EXPOSURE PANEL SOURCE (10/06/2020 12:27 PM CLINICAL AUDIOLOGIST) HIV Antigen/Antibody 1 & 2 Non-react ofelia Non-reac tive 10/06/2020 1:34 PM CLINICAL AUDIOLOGIST [facility] Comment:Neither HIV-1 p24 An tigen nor HIV-1/HIV-2 Antibodies are detected. Hepatitis C Antibody Non-react ofelia Non-reac tive 10/06/2020 1:34 PM CLINICAL AUDIOLOGIST [facility] Comment:Hepatitis C Antibody screen indicates no serologic evidence of past or current infection with Hepatitis C Virus. Patients with unexplained liver disease who are immunocompromised or suspected of having acute Hepatitis C infection may benefit from Nucleic Acid Test (ISAIAS) for Hepatitis C Viral RNA to confirm Hepatitis C status. Hepatitis B Virus Surface Antigen Non-react ofelia Non-reac tive 10/06/2020 1:34 PM CLINICAL AUDIOLOGIST [facility] Hepatitis B Core Virus Antibody IgM Non-react ofelia Non-reac tive 10/06/2020 1:34 PM CLINICAL AUDIOLOGIST [facility] Blood BLOOD SPECIMEN / Unknown Venipuncture / Unknown 10/06/2020 12:27 PM CLINICAL AUDIOLOGIST 10/06/2020 12:50 PM CLINICAL AUDIOLOGIST us Yosi Carrera MD LAB - CHEMISTRY ORDERABLES Delfina simental Result Performing Organization Address City/State/[facility] Co de Phone Number [facility] [address] [place] [address], [facility] [phone] from Last 3 Months or Most Recently Relevant to Health Maintenance Insurance MEDICAID - OUT OF STATE UHC MANAGED MEDICARE ADV MEDICAID - [place] UHC MANAGED MEDICARE ADV Advance Directives * Full Code (Latest Code Status on File) Date Activated Date Inactivated Comments 10/06/2020 1:13 PM 10/12/2020 11:51 AM Care Teams Tube Carrier Relationship Specialty Start Date End Date Dariusz Titus MD PCP - General 02/05/20
--- OUTSIDE RECORDS SUMMARY | 2025-08-06 07:02 | XMS_ITS | Encounter Summary ---
Author Organization [facility] Address [address] [address] Care Team Providers Care Hris Coordinator Name Role Phone Dariusz Titus MD Primary Care Provider [phone] Encounter Details Date Type Department Care Team (Late st Contact Info) Description 08/12/2021 Postop Outreach [facility] [address] [place] [phone] Edita Villafuerte RN Social History Tobacco Use [...] of Assessment Author No 10/06/2020 6:16 PM COST ESTIMATOR AvalosGovind RN * Does person have serious difficulty walking/climbing stairs? Answer Date of Assessment Author No 10/06/2020 6:16 PM COST ESTIMATOR AvalosGovind RN * Does person have difficulty dressing/bathing? Answer Date of Assessment Author No 10/06/2020 6:16 PM COST ESTIMATOR AvalosGovind RN * Does person have difficulty doing errands alone? Answer Date of Assessment Author No 10/06/2020 6:16 PM COST ESTIMATOR AvalosGovind RN documented as of this encounter Mental Status * Does person have difficulty concentrating/remembering/making decisions? Answer Entry Date Author No 10/06/2020 6:16 PM COST ESTIMATOR Govind Avalos RN documented in this encounter Plan of Treatment Upcoming Encounters Date Type Department Care Team (Late st Contact Info) Description 12/02/2025 8:00 AM CDT Office Visit [facility] - [address] [place] [address] Julianna Magallanes MD [address] [place] [address] documented as of this encounter Goals Goal Patient Goal Type Associated Problems Recent Progress Patient-Stated? Author Medication Management General On track( 025 1:17 PM CDT) Lelia Arreola RN Note: Expected end date: [...] CDIFF Under Investigation 10/25/2024 10/26/2024 10:10 PM COST ESTIMATOR documented as of this encounter Care Teams Hris Coordinator Relationship Specialty Start Date End Date Dariusz Titus MD PCP - General 02/05/20 documented as of this encounter
== END 2025-08-06 06:59 | disposition home or self-care (01) ==
PROVIDERS: PCP Emergency Medicine; Visit Provider Emergency Medicine
DX: Z12.2 Encounter for screening for malignant neoplasm of respiratory organs (principal); Z87.891 Personal history of nicotine dependence
CPT/HCPCS: 71271